=== PATIENT | female | born 1980 | race Caucasian/White ===

== ENCOUNTER 2018-05-02 00:52 | Inpatient (IN) | payer MEDICAID ==
[2018-05-02] MEDS ORDERED: Sodium Chloride 0.9% 1,000 ML IV STA ×2 (01:38→04:59)
[2018-05-02] MEDS ORDERED: Sodium Chloride 0.9% 1,000 ML ONE (01:47)
[2018-05-02 01:55] LABS: HCG,QUALITATIVE URINE NEGATIVE (NEGATIVE)
[2018-05-02 01:58] LABS: SQUAMOUS EPITHIAL 1 /hpf (0-5); URINE BACTERIA FEW (<OCC); URINE BILIRUBIN NEGATIVE (NEGATIVE); URINE CLARITY Clear (Clear); URINE COLOR Yellow (YELLOW); URINE GLUCOSE (UA) NORMAL (Normal); URINE LEUKOCYTE ESTERASE NEG Leu/uL (Negative); URINE PROTEIN NEGATIVE (NEGATIVE); URINE UROBILINOGEN NORMAL mg/dL (0.2-1.0)
[2018-05-02 02:01] LABS: URINE BLOOD TRACE (NEGATIVE)
--- NOTE | 2018-05-02 02:33 | C.PDOC ---
History Of Present Illness 37 year old female presents to the ED for evaluation of severe left-sided flank pain which began around 3 hours prior to arrival. Patient also reports episode of vomiting and was found to be febrile in the ED with temperature of 102.7. Patient denies back pain or diarrhea. Time Seen by Provider: 05/02/18 01:32 Chief Complaint (Nursing): Abdominal Pain History Per: Patient History/Exam Limitations: no limitations Onset/Duration Of Symptoms: Hrs (3) Current Symptoms Are (Timing): Still Present Severity: Severe Radiation Of Pain To:: Flank (right) Quality Of Discomfort: "Pain" Associated Symptoms: Fever, Vomiting. denies: Diarrhea, Back Pain Recent travel outside of the [place]: No Additional History Per: Patient Abnormal Vaginal Bleeding: No Past Medical History Reviewed: Historical Data, Nursing Documentation, Vital Signs Vital Signs: Last Vital Signs Temp 99.1 F 05/02/18 05:31 Pulse 80 05/02/18 05:31 Resp 20 05/02/18 05:31 BP 132/82 05/02/18 05:31 Pulse Ox 99 05/02/18 05:31 - Medical History PMH: No Chronic Diseases Surgical History: No Surg Hx Family History: States: Unknown Family Hx - Social History Hx Alcohol Use: No Hx Substance Use: No - Immunization History Hx Tetanus Toxoid Vaccination: No Hx Influenza Vaccination: No Hx Pneumococcal Vaccination: No Review Of Systems Constitutional: Positive for: Fever Gastrointestinal: Positive for: Vomiting, Abdominal Pain. Negative for: Diarrhea Musculoskeletal: Positive for: Other (left-sided flank pain ). Negative for: Back Pain Physical Exam - Physical Exam Appears: Non-toxic, No Acute Distress Skin: Normal Color, Warm, Dry Head: Atraumatic, Normacephalic Eye(s): bilateral: Normal Inspection Oral Mucosa: Moist Neck: Supple Chest: Symmetrical, No Deformity, No Tenderness Cardiovascular: Rhythm Regular, No Murmur Respiratory: Normal Breath Sounds, No Rales, No Rhonchi, No Wheezing Gastrointestinal/Abdominal: Soft, No Tenderness, No Guarding, No Rebound Back: Other (left-sided flank tenderness ) Extremity: Normal ROM, Capillary Refill (less than 2 seconds ) Neurological/Psych: Oriented x3, Normal Speech, Normal Cognition ED Course And Treatment - Laboratory Results Result Diagrams: 05/02/18 02:41 05/02/18 02:41 O2 Sat by Pulse Oximetry: 95 (on RA) Pulse Ox Interpretation: Normal - CT Scan/US CT A/P Other Rad Studies (CT/US): Read By Radiologist, Radiology Report Reviewed CT/US Interpretation: EXAM: CT Abdomen and Pelvis With Intravenous Contrast. CLINICAL HISTORY: 37 years old, female; Pain; Abdominal pain; Additional info: Left abd pain, fever. TECHNIQUE: Axial computed tomography images of the abdomen and pelvis with intravenous contrast. All CT. scans at this facility use at least one of these dose optimization techniques: automated exposure. control; mA and/or kV adjustment per patient size (includes targeted exams where dose is matched to. clinical indication); or iterative reconstruction. Coronal and sagittal reformatted images were created and reviewed. COMPARISON: No relevant prior studies available. FINDINGS: Lung bases: Unremarkable. No mass. No consolidation. ABDOMEN: Liver: Unremarkable. No mass. Gallbladder and bile ducts: Unremarkable. No calcified stones. No ductal dilation. Pancreas : Unremarkable. No mass. No ductal dilation. Spleen: Unremarkable. No splenomegaly. Adrenals: Unremarkable. No mass. Kidneys and ureters: There is mild left hydronephrosis and hydroureter secondary to 3 mm. stone in the left uterovesical junction. There is moderate inflammatory left perinephric stranding. Delayed left nephrogram compared to the right.There are bilateral renal collecting system. calcifications. Stomach and bowel: Unremarkable. No obstruction. No mucosal thickening. PELVIS: Appendix: No findings to suggest acute appendicitis. Bladder: Unremarkable. No mass. Reproductive: Unremarkable as visualized. ABDOMEN and PELVIS: Intraperitoneal space: Unremarkable. No free air. No significant fluid collection. Bones/joints: No acute fracture. No dislocation. Soft tissues: Unremarkable. Vasculature: Unremarkable. No abdominal aortic aneurysm. Lymph nodes: Unremarkable. No enlarged lymph nodes. IMPRESSION: Mild left hydronephrosis and hydroureter secondary to 3 mm stone in the left uterovesical junction. Progress Note: Bloodwork, urinalysis, CT A/P ordered and reviewed. Morphine IVP , Protonix IVP, Tylenol IVP, Zofran IVP and IV fluids given. Case was d/w Hospitalist who accepted pt [place] for [place]. - Physician Consult Information Physician Contacted: Nakul Noe Outcome Of Conversation: [facility], IV hydration, IV antibiotics Disposition - Disposition Disposition: HOSPITALIZED Disposition Time: 05:11 Condition: FAIR Forms: [facility] (Hungarian) - Clinical Impression Clinical Impression: Renal colic on left side, Fever - PA / HAND SEWER / Resident Statement MD/DO has reviewed & agrees with the documentation as recorded. - Scribe Statement The provider has reviewed the documentation as recorded by the Scribe (Livier Jovel) All medical record entries made by the Scribe were at my direction and personally dictated by me. I have reviewed the chart and agree that the record accurately reflects my personal performance of the history, physical exam, medical decision making, and the department course for this patient. I have also personally directed, reviewed, and agree with the discharge instructions and disposition. Decision To Admit - Pt Status Changed To: Hospital Disposition Of: Observation - . Bed Request Type: Regular Admitting Physician: All Luke Patient Diagnosis: Renal colic on left side, Fever
[2018-05-02 02:54] LABS: BASO % 0.2 % (0.0-2.0); EOS % 0.3 % (0.0-4.0); HEMOGLOBIN 12.2 g/dL (11.0-16.0); LYMPH # 0.3 K/uL (1.0-4.3); MEAN CELL VOLUME 83.5 fL (81.0-99.0); MEAN CORPUSCULAR HEMOGLOBIN 27.6 pg (27.0-31.0); MEAN CORPUSCULAR HGB CONC 33.1 g/dL (33.0-37.0); MEAN PLATELET VOLUME 8.7 fL (7.2-11.7); MONO % 0.7 % (0.0-10.0); NEUT # 2.1 K/uL (1.8-7.0); NEUT % 85.8 % (50.0-75.0); NRBC % 0.4 % (0.0-2.0); RBC 4.43 Mil/uL (3.80-5.20); RED CELL DISTRIBUTION WIDTH 13.7 % (11.5-14.5); WHITE BLOOD COUNT 2.5 K/uL (4.8-10.8)
[2018-05-02 02:56] LABS: INR 1.3
[2018-05-02] MEDS ORDERED: Morphine 4 MG/ML VIAL ONE (02:57)
[2018-05-02 03:01] LABS: ALB/GLOB RATIO 1.9 (1.0-2.1); ALBUMIN 3.9 g/dL (3.5-5.0); ALT/SGPT 29 U/L (9-52); AST/SGOT 23 U/L (14-36); BLOOD UREA NITROGEN 15 mg/dL (7-17); CALCIUM 9.1 mg/dl (8.6-10.4); GFR NON-AFRICAN AMERICAN > 60; LIPASE 37 U/L (23-300)
[2018-05-02] MEDS ORDERED: Potassium Chloride 20 mEq/15 ml LIQ UD PO STA (03:05)
[2018-05-02] MEDS ORDERED: Potassium Chloride 20 mEq/15 ml LIQ UD ONE (05:05)
[2018-05-02] MEDS ORDERED: Sodium Chloride 0.9% 1,000 ML IV ONE (06:23)
--- NOTE | 2018-05-02 06:24 | CP.PCM.PN ---
Subjective - Date & Time of Evaluation Date of Evaluation: 05/02/18 Time of Evaluation: 06:19 - Subjective Subjective: Assessment * Obstructing left distal ureteric calculus, with hydronephrosis, perinephric stranding, fever, * Fever sepsis. Plan * Broad spectrum abx, meropenium 1g q8h * IVF 1lit bolus then 150/hr * Midodrine 10mg single dose * Pain control * Prn zofran, ppi * Urology to stent/remove distal calculus, vs urostomy, if not passed soon * Strain urine. Objective - Vital Signs/Intake and Output Vital Signs (last 24 hours): Temp Pulse Resp BP Pulse Ox 99.1 F 80 20 132/82 95 05/02/18 05:31 05/02/18 05:31 05/02/18 05:31 05/02/18 05:31 05/02/18 06:12 - Medications Medications: Current Medications Acetaminophen (Tylenol 325mg Tab) 650 mg PO Q6 PRN PRN Reason: Fever >100.4 F - Labs Labs: 05/02/18 02:41 05/02/18 02:41 PT 14.0 SECONDS (9.7-12.2) H 05/02/18 02:41 INR 1.3 05/02/18 02:41 APTT 37 SECONDS (21-34) H 05/02/18 02:41
--- NOTE | 2018-05-02 06:52 | CP.PCM.HP ---
<Sherry Rodriguez - Last Filed: 05/02/18 07:05> History of Present Illness - History of Present Illness History of Present Illness: HPI: Patient is a 37 year old female with no past medical history who presents with complaints of left sided flank pain that started at 8pm Th night. The patient describes the pain as severe, sharp, and constant. She also complaints of increased urinary frequency, foul odor, and painful urination. She denies hematuria. She has had kidney stones approximately 1.5 years ago in [place] which was given IV medications. In the ED, patient had a fever of 102.7. She currently complains of fever, chills, weakness, headache, dizziness, nausea , vomiting, increased frequency, pain with urination, and back/flank pain. PMHx: denies SurgHx: denies FamHx: denies SocHx: denies tobacco/alcohol/drug use Allergies: NKDA Medications: denies Present on Admission - Present on Admission Any Indicators Present on Admission: No Review of Systems - Constitutional Constitutional: Chills, Fever, Headache, Lethargy, Malaise, Weakness - EENT Eyes: absent: Change in Vision, Other Visual Disturbances Ears: Dizziness - Cardiovascular Cardiovascular: absent: Chest Pain, Dyspnea, Leg Edema, Palpitations, Rapid Heart Rate - Respiratory Respiratory: absent: Cough, Dyspnea, Hemoptysis - Gastrointestinal Gastrointestinal: Constipation, Nausea, Vomiting. absent: Abdominal Pain, Diarrhea, Hematemesis, Hematochezia, Melena - Genitourinary Genitourinary: Change in Urinary Stream, Dysuria, Pyuria, Urinary Frequency. absent: Hematuria - Musculoskeletal Musculoskeletal: Back Pain (Left back and flank pain) - Neurological Neurological: Dizziness, Headaches, Weakness - Endocrine Endocrine: Fatigue. absent: Palpitations Past Patient History - Infectious Disease Hx of Infectious Diseases: None - Past Social History Smoking Status: Never Smoked - PSYCHIATRIC Hx Substance Use: No - SURGICAL HISTORY Hx Surgeries: No - ANESTHESIA Hx Anesthesia: No Meds Allergies/Adverse Reactions: Allergies Allergy/AdvReac Type Severity Reaction Status Date / Time No Known Allergies Allergy Verified 05/02/18 01:15 Physical Exam - Constitutional Appears: Toxic - Head Exam Head Exam: ATRAUMATIC, NORMAL INSPECTION - Eye Exam Eye Exam: EOMI, Normal appearance - ENT Exam ENT Exam: Mucous Membranes Dry - Respiratory Exam Respiratory Exam: Clear to Auscultation Bilateral, NORMAL BREATHING PATTERN. absent: Rales, Rhonchi, Wheezes, Respiratory Distress - Cardiovascular Exam Cardiovascular Exam: REGULAR RHYTHM, +S1, +S2 - GI/Abdominal Exam GI & Abdominal Exam: Normal Bowel Sounds, Soft, Tenderness (suprapubic b/l; LLQ ; left flank). absent: Distended - Extremities Exam Extremities exam: Positive for: normal inspection, pedal pulses present. Negative for: pedal edema, tenderness - Back Exam Back exam: CVA tenderness (L). absent: CVA tenderness (R) - Neurological Exam Neurological exam: Alert, Oriented x3 - Psychiatric Exam Psychiatric exam: Normal Affect, Normal Mood - Skin Skin Exam: Dry, Intact, Normal Color, Warm Results - Vital Signs Recent Vital Signs: Last Vital Signs Temp 99 F 05/02/18 06:24 Pulse 82 05/02/18 06:24 Resp 20 05/02/18 06:24 BP 130/80 05/02/18 06:24 Pulse Ox 96 05/02/18 06:24 - Labs Result Diagrams: 05/02/18 02:41 05/02/18 02:41 Labs: Laboratory Results - last 24 hr 05/02/18 05/02/18 05/02/18 01:40 02:41 02:41 WBC 2.5 L RBC 4.43 Hgb 12.2 Hct 37.0 MCV 83.5 MCH 27.6 MCHC 33.1 RDW 13.7 Plt Count 171 MPV 8.7 Neut % (Auto) 85.8 H Lymph % (Auto) 13.0 L Benzie % (Auto) 0.7 Eos % (Auto) 0.3 Baso % (Auto) 0.2 Neut # (Auto) 2.1 Lymph # (Auto) 0.3 L Benzie # (Auto) 0.0 Eos # (Auto) 0.0 Baso # (Auto) 0.0 PT 14.0 H INR 1.3 APTT 37 H Sodium Potassium Chloride Carbon Dioxide Anion Gap BUN Creatinine Est GFR ( Amer) Est GFR (Non-Af Amer) Random Glucose Calcium Total Bilirubin AST ALT Alkaline Phosphatase Total Protein Albumin Globulin Albumin/Globulin Ratio Lipase Urine Color Yellow Urine Clarity Clear Urine pH 5.0 Ur Specific Brock 1.009 Urine Protein Negative Urine Glucose (UA) Normal Urine Ketones Negative Urine Blood Trace H Urine Nitrate Negative Urine Bilirubin Negative Urine Urobilinogen Normal Ur Leukocyte Esterase Neg Urine WBC (Auto) 2 Urine RBC (Auto) 1 Ur Squamous Epith Cells 1 Urine Bacteria Few H Urine HCG, Qual Negative 05/02/18 02:41 WBC RBC Hgb Hct MCV MCH MCHC RDW Plt Count MPV Neut % (Auto) Lymph % (Auto) Benzie % (Auto) Eos % (Auto) Baso % (Auto) Neut # (Auto) Lymph # (Auto) Benzie # (Auto) Eos # (Auto) Baso # (Auto) PT INR APTT Sodium 139 Potassium 3.3 L Chloride 105 Carbon Dioxide 22 Anion Gap 15 BUN 15 Creatinine 0.9 Est GFR ( Amer) > 60 Est GFR (Non-Af Amer) > 60 Random Glucose 109 H Calcium 9.1 Total Bilirubin 0.5 AST 23 ALT 29 Alkaline Phosphatase 57 Total Protein 6.1 L Albumin 3.9 Globulin 2.1 L Albumin/Globulin Ratio 1.9 Lipase 37 Urine Color Urine Clarity Urine pH Ur Specific Brock Urine Protein Urine Glucose (UA) Urine Ketones Urine Blood Urine Nitrate Urine Bilirubin Urine Urobilinogen Ur Leukocyte Esterase Urine WBC (Auto) Urine RBC (Auto) Ur Squamous Epith Cells Urine Bacteria Urine HCG, Qual Assessment & Plan - Assessment and Plan (Free Text) Plan: Obstructing left distal ureteric calculus, with hydronephrosis - Abdomen/Pelvis CT: mild left hydronephrosis and hydroureter secondary to 3mm stone in left uteroversical junction - In the ED, morphine, IV fluids, zofran, protonix, and tylenol were given - Strain urine for calculus - NPO - Urology consulted, Dr. Noe; help appreciated - Medications: - Merrem 1g IV Q8h - Morphine 2mg IV Q3h - NS@ 200mls/hr (after 1L NS bolus) - Zofran 4mg IV Q6h prn Sepsis - Febrile, tachycardiac at admission; source- ureteric calculus - Blood cx: f/u - Urine cx: f/u - Procalcitonin: f/u - Lactate: f/u - Medications: - Merrem 1g IV Q8h - Morphine 2mg IV Q3h - Zofran 4mg IV Q6h - Tylenol 650mg PO PRN - NS@ 200mls/hr (after 1L NS bolus) - Midodrine 10mg PO given once Prophylaxis - DVT: SCDs, Heparin 5000u SC Q12 - GI: not indicated - NPO <All Luke P - Last Filed: 05/02/18 08:03> Results - Vital Signs Recent Vital Signs: Last Vital Signs Temp 99 F 05/02/18 06:24 Pulse 82 05/02/18 06:24 Resp 20 05/02/18 06:24 BP 130/80 05/02/18 06:24 Pulse Ox 96 05/02/18 06:24 - Labs Result Diagrams: 05/02/18 02:41 05/02/18 02:41 Labs: Laboratory Results - last 24 hr 05/02/18 05/02/18 05/02/18 01:40 02:41 02:41 WBC 2.5 L RBC 4.43 Hgb 12.2 Hct 37.0 MCV 83.5 MCH 27.6 MCHC 33.1 RDW 13.7 Plt Count 171 MPV 8.7 Neut % (Auto) 85.8 H Lymph % (Auto) 13.0 L Benzie % (Auto) 0.7 Eos % (Auto) 0.3 Baso % (Auto) 0.2 Neut # (Auto) 2.1 Lymph # (Auto) 0.3 L Benzie # (Auto) 0.0 Eos # (Auto) 0.0 Baso # (Auto) 0.0 PT 14.0 H INR 1.3 APTT 37 H Sodium Potassium Chloride Carbon Dioxide Anion Gap BUN Creatinine Est GFR ( Amer) Est GFR (Non-Af Amer) Random Glucose Calcium Total Bilirubin AST ALT Alkaline Phosphatase Total Protein Albumin Globulin Albumin/Globulin Ratio Lipase Urine Color Yellow Urine Clarity Clear Urine pH 5.0 Ur Specific Brock 1.009 Urine Protein Negative Urine Glucose (UA) Normal Urine Ketones Negative Urine Blood Trace H Urine Nitrate Negative Urine Bilirubin Negative Urine Urobilinogen Normal Ur Leukocyte Esterase Neg Urine WBC (Auto) 2 Urine RBC (Auto) 1 Ur Squamous Epith Cells 1 Urine Bacteria Few H Urine HCG, Qual Negative 05/02/18 02:41 WBC RBC Hgb Hct MCV MCH MCHC RDW Plt Count MPV Neut % (Auto) Lymph % (Auto) Benzie % (Auto) Eos % (Auto) Baso % (Auto) Neut # (Auto) Lymph # (Auto) Benzie # (Auto) Eos # (Auto) Baso # (Auto) PT INR APTT Sodium 139 Potassium 3.3 L Chloride 105 Carbon Dioxide 22 Anion Gap 15 BUN 15 Creatinine 0.9 Est GFR ( Amer) > 60 Est GFR (Non-Af Amer) > 60 Random Glucose 109 H Calcium 9.1 Total Bilirubin 0.5 AST 23 ALT 29 Alkaline Phosphatase 57 Total Protein 6.1 L Albumin 3.9 Globulin 2.1 L Albumin/Globulin Ratio 1.9 Lipase 37 Urine Color Urine Clarity Urine pH Ur Specific Brock Urine Protein Urine Glucose (UA) Urine Ketones Urine Blood Urine Nitrate Urine Bilirubin Urine Urobilinogen Ur Leukocyte Esterase Urine WBC (Auto) Urine RBC (Auto) Ur Squamous Epith Cells Urine Bacteria Urine HCG, Qual Attending/Attestation - Attestation I have personally seen and examined this patient.: Yes I have fully participated in the care of the patient.: Yes I have reviewed all pertinent clinical information: Yes Notes (Text): See note on the same day
[2018-05-02] MEDS: Meropenem 1 GM in Sodium Chloride 0.9% 100 ML IVPB SCH ×3 (07:24→22:18)
[2018-05-02] MEDS: Sodium Chloride 0.9% 1,000 ML IV SCH ×3 (07:26→18:50)
--- NOTE | 2018-05-02 07:51 | CP.PCM.PN ---
<Neena Ma L - Last Filed: 05/02/18 17:48> Subjective - Date & Time of Evaluation Date of Evaluation: 05/02/18 Time of Evaluation: 07:50 - Subjective Subjective: Resident Progress Note for Hospitalist Service Patient examined at bedside. No acute events overnight. Patient states she is still experiencing pain throughout her entire body, worst in her lower left quadrant. She is still having headache, fever, chills. She does state that she feels improved since being admitted to the hospital. Denies chest pain, shortness of breath, changes in bowel movements, dysuria. Objective - Vital Signs/Intake and Output Vital Signs (last 24 hours): Temp Pulse Resp BP Pulse Ox 99 F 82 20 130/80 96 05/02/18 06:24 05/02/18 06:24 05/02/18 06:24 05/02/18 06:24 05/02/18 06:24 - Medications Medications: Current Medications Acetaminophen (Tylenol 325mg Tab) 650 mg PO Q6 PRN PRN Reason: Fever >100.4 F Heparin Sodium (Porcine) (Heparin) 5,000 units SC Q12 [facility] Meropenem 1 gm/ Sodium (Chloride) 100 mls @ 100 mls/hr IVPB Q8H [facility] PRN Reason: Protocol Last Admin: 05/02/18 07:24 Dose: 100 mls/hr Sodium Chloride (Sodium Chloride 0.9%) 1,000 mls @ 200 mls/hr IV .Q5H [facility] Last Admin: 05/02/18 07:26 Dose: 200 mls/hr Morphine Sulfate (Morphine) 2 mg IVP Q3H PRN PRN Reason: Pain, severe (8-10) Ondansetron HCl (Zofran Inj) 4 mg IVP Q6 PRN PRN Reason: Nausea/Vomiting - Labs Labs: 05/02/18 02:41 05/02/18 02:41 PT 14.0 SECONDS (9.7-12.2) H 05/02/18 02:41 INR 1.3 05/02/18 02:41 APTT 37 SECONDS (21-34) H 05/02/18 02:41 - Constitutional Appears: No Acute Distress - Head Exam Head Exam: ATRAUMATIC, NORMOCEPHALIC - Eye Exam Eye Exam: EOMI, Normal appearance - ENT Exam ENT Exam: Mucous Membranes Moist, Normal Exam - Neck Exam Neck Exam: Normal Inspection - Respiratory Exam Respiratory Exam: Clear to Ausculation Bilateral, NORMAL BREATHING PATTERN - Cardiovascular Exam Cardiovascular Exam: REGULAR RHYTHM, +S1, +S2 - GI/Abdominal Exam GI & Abdominal Exam: Soft, Tenderness (lower left quadrant), Hypoactive Bowel Sounds - Extremities Exam Extremities Exam: Normal Capillary Refill, Normal Inspection - Back Exam Back Exam: CVA tenderness (L), NORMAL INSPECTION. absent: CVA tenderness (R) - Neurological Exam Neurological Exam: Alert, Awake, Oriented x3 - Psychiatric Exam Psychiatric exam: Anxious - Skin Skin Exam: Dry, Intact, Normal Color Assessment and Plan - Assessment and Plan (Free Text) Plan: Sepsis - Febrile, tachycardic at admission - Likely secondary to obstructing left distal ureteric calculus with hydronephrosis - Abdomen/Pelvis CT: mild left hydronephrosis and hydroureter secondary to 3mm stone in left uteroversical junction - Renal ultrasound shows mild left perinephric fluid. Mild left hydronephrosis. Possible forniceal rupture due to more distal obstruction of the collecting system. 5 mm nonobstructing calculus noted in both the right and left kidney. - s/p cystoscopy with stent insertion - Procalcitonin 80.21 - Merrem 1g IV Q8h - Tylenol 650mg PO Q6H [facility] - Tamsulosin 0.4 mg PO daily - NS@ 200mls/hr (after 1L NS bolus) - Zofran 4mg IV Q6h prn - Toradol 15 mg IVP Q6 PRN for moderate pain, Toradol 30 mg IVP Q6 PRN for severe pain - Strain urine for calculus - Urology Dr. Noe consulted. Appreciate recs. - Followup blood cx - Followup urine cx - Followup lactic acid Soft tissue density in left breast - Incidental finding on abd/pelvis CT - 1.7 cm density - Outpatient followup with mammogram Hypokalemia - Continue to monitor and replete Prophylaxis - DVT: SCDs, Heparin 5000u SC Q12 - GI: Protonix 40 mg IVP daily - Lactobacillus Acidophilus 1 cap PO BID Neena Ma PGY-1 <Joshua Jovel - Last Filed: 05/04/18 22:41> Objective - Vital Signs/Intake and Output Vital Signs (last 24 hours): Temp Pulse Resp BP Pulse Ox 98.4 F 64 20 130/86 99 05/04/18 15:11 05/04/18 15:11 05/04/18 15:11 05/04/18 15:11 05/04/18 15:11 Intake and Output: 05/04/18 05/05/18 18:59 06:59 Intake Total 1200 Balance 1200 - Medications Medications: Current Medications Acetaminophen (Tylenol 325mg Tab) 650 mg PO Q6 PRN PRN Reason: Fever >100.4 F Last Admin: 05/02/18 12:37 Dose: 650 mg Acetaminophen (Tylenol 325mg Tab) 650 mg PO Q6 [facility] Stop: 05/05/18 18:00 Last Admin: 05/04/18 17:28 Dose: 650 mg Heparin Sodium (Porcine) (Heparin) 5,000 units SC Q12 [facility] Last Admin: 05/04/18 22:10 Dose: 5,000 units Meropenem 1 gm/ Sodium (Chloride) 100 mls @ 100 mls/hr IVPB Q8H [facility] PRN Reason: Protocol Last Admin: 05/04/18 22:09 Dose: 100 mls/hr Sodium Chloride (Sodium Chloride 0.9%) 1,000 mls @ 200 mls/hr IV .Q5H [facility] Last Admin: 05/04/18 20:03 Dose: Not Given Ketorolac Tromethamine (Toradol) 30 mg IVP Q6 PRN PRN Reason: Pain, severe (8-10) Last Admin: 05/02/18 20:00 Dose: 30 mg Ketorolac Tromethamine (Toradol) 15 mg IVP Q6 PRN PRN Reason: Pain, moderate (4-7) Last Admin: 05/04/18 01:04 Dose: 15 mg Lactobacillus Acidophilus (Bacid Acidophilus) 1 cap PO BID [facility] Last Admin: 05/04/18 17:29 Dose: 1 cap Ondansetron HCl (Zofran Inj) 4 mg IVP Q6 PRN PRN Reason: Nausea/Vomiting Pantoprazole Sodium (Protonix Inj) 40 mg IVP DAILY [facility] Last Admin: 05/04/18 10:06 Dose: 40 mg Pneumococcal Polyvalent Vaccine (Pneumovax 23 Vaccine) 0.5 ml IM .ONCE ONE Stop: 05/05/18 10:01 Tamsulosin HCl (Flomax) 0.4 mg PO DAILY [facility] Last Admin: 05/04/18 10:07 Dose: 0.4 mg - Labs Labs: 05/04/18 08:42 05/04/18 08:42 PT 14.0 SECONDS (9.7-12.2) H 05/02/18 02:41 INR 1.3 05/02/18 02:41 APTT 37 SECONDS (21-34) H 05/02/18 02:41 Attending/Attestation - Attestation I have personally seen and examined this patient.: Yes I have fully participated in the care of the patient.: Yes I have reviewed all pertinent clinical information, including history, physical exam and plan: Yes Notes (Text): 05/04/18 22:40 This is a late entry Care of this patient was gone over in detail with resident Dr. Francesca Jovel D.O.
--- NOTE | 2018-05-02 08:18 | CT ---
Date of service: 05/02/2018 PROCEDURE: CT Abdomen and Pelvis with intravenous contrast HISTORY: left sided abdominal pain, fever COMPARISON: None. TECHNIQUE: Multiple contiguous axial images were performed through the abdomen and pelvis with the use of intravenous contrast. Subsequently, sagittal and coronal reformatted images were obtained. Radiation dose: Total exam DLP = 904 mGy-cm. This CT exam was performed using one or more of the following dose reduction techniques: Automated exposure control, adjustment of the mA and/or kV according to patient size, and/or use of iterative reconstruction technique. FINDINGS: LOWER THORAX: Unremarkable. LIVER: Mild intrahepatic biliary ductal dilatation. GALLBLADDER AND BILE DUCTS: Unremarkable. PANCREAS: Unremarkable. No gross lesion or ductal dilatation. SPLEEN: Unremarkable. Splenule. ADRENALS: Unremarkable. No mass. KIDNEYS AND URETERS: Mild left hydroureteronephrosis secondary to an obstructing 3 millimeter calculus in the left ureterovesicular junction. Moderate inflammatory left perinephric fat stranding. Delayed left-sided nephrogram in comparison to the right. Bilateral renal collecting system calcifications. For example, a left upper pole 6 millimeter calculus is noted. VASCULATURE: Unremarkable. No aortic aneurysm. BOWEL: Unremarkable. No obstruction. No gross mural thickening. APPENDIX: No findings to suggest acute appendicitis. PERITONEUM: Unremarkable. No free fluid. No free air. LYMPH NODES: Unremarkable. No enlarged lymph nodes. BLADDER: Unremarkable. REPRODUCTIVE: Intrauterine device in place. BONES: No acute fracture. OTHER FINDINGS: None. IMPRESSION: Mild left hydroureteronephrosis secondary to an obstructing 3 millimeter calculus in the left ureterovesicular junction. Moderate inflammatory left perinephric fat stranding. Delayed left-sided nephrogram in comparison to the right. Bilateral renal collecting system calcifications/calculi. Incidentally noted is a 1.7 centimeter rounded soft tissue density in the left breast on series 3, image 14. Correlation with mammogram would be helpful for further evaluation if clinically indicated. Additional findings as above. These findings were preliminarily reported at 4:31 a.m. on 05/02/[address] Lauren Pavon from [employer].
--- NOTE | 2018-05-02 11:35 | US ---
Date of service: 05/02/2018 PROCEDURE: Ultrasound of the Kidneys HISTORY: Left renal calculi COMPARISON: None available. TECHNIQUE: Sonogram of the kidneys. FINDINGS: RIGHT KIDNEY: Measures: 12.7 cm. Normal in size, contour and echogenicity. 5 mm calculus mid right kidney, nonobstructing. No mass. No hydronephrosis. LEFT KIDNEY: Measures: 14.4 cm. Normal in size, contour and echogenicity. Nonobstructing 5 mm calculus mid left kidney. Mild hydronephrosis. Mild perinephric fluid. OTHER FINDINGS: None. IMPRESSION: Mild left perinephric fluid. Mild left hydronephrosis. Possible forniceal rupture due to more distal obstruction of the collecting system. 5 mm nonobstructing calculus noted in both the right and left kidney.
[2018-05-02 11:40] LABS: BLOOD UREA NITROGEN 13 mg/dL (7-17); CALCIUM 7.4 mg/dl (8.6-10.4); GFR NON-AFRICAN AMERICAN > 60
[2018-05-02] MEDS ORDERED: Ciprofloxacin 400mg/200ml D5W 400 MG/200 ML BAG IVPB ONE (16:21)
[2018-05-02] MEDS ORDERED: Midazolam 2 MG/2 ML VIAL ONE ×2 (16:23→16:45)
[2018-05-02] MEDS ORDERED: Propofol 10 mg/ml Inj (20 ML) ONE (16:24)
[2018-05-02] MEDS ORDERED: HYDROmorphone 0.5 mg/0.5 ml ISec IVP PRN (16:45)
--- NOTE | 2018-05-02 17:24 | RAD ---
Date of service: 05/02/2018 PROCEDURE: Intraoperative Fluoroscopy. HISTORY: LEFT URETEROCALCULI FINDINGS: Fluoroscopic assistance was provided for cystogram and stent placement. Please refer to the operative report from MELVIN Alvarenga. Total fluoroscopic time (continuous mode) utilized during the procedure 3.9 (seconds).
[2018-05-02] MEDS: Lactobacillus Acidophilus 500 MU Cap PO SCH (18:45)
--- NOTE | 2018-05-02 18:45 | CP.PCM.DIS ---
Provider - Provider Date of Admission: 05/02/18 05:07 Attending physician: All Luke MD Hospital Course - Lab Results Lab Results: Most Recent Lab Values WBC 2.5 K/uL (4.8-10.8) L 05/02/18 02:41 RBC 4.43 Mil/uL (3.80-5.20) 05/02/18 02:41 Hgb 12.2 g/dL (11.0-16.0) 05/02/18 02:41 Hct 37.0 % (34.0-47.0) 05/02/18 02:41 MCV 83.5 fL (81.0-99.0) 05/02/18 02:41 MCH 27.6 pg (27.0-31.0) 05/02/18 02:41 MCHC 33.1 g/dL (33.0-37.0) 05/02/18 02:41 RDW 13.7 % (11.5-14.5) 05/02/18 02:41 Plt Count 171 K/uL (130-400) 05/02/18 02:41 MPV 8.7 fL (7.2-11.7) 05/02/18 02:41 Neut % (Auto) 85.8 % (50.0-75.0) H 05/02/18 02:41 Lymph % (Auto) 13.0 % (20.0-40.0) L 05/02/18 02:41 Milam % (Auto) 0.7 % (0.0-10.0) 05/02/18 02:41 Eos % (Auto) 0.3 % (0.0-4.0) 05/02/18 02:41 Baso % (Auto) 0.2 % (0.0-2.0) 05/02/18 02:41 Neut # (Auto) 2.1 K/uL (1.8-7.0) 05/02/18 02:41 Lymph # (Auto) 0.3 K/uL (1.0-4.3) L 05/02/18 02:41 Milam # (Auto) 0.0 K/uL (0.0-0.8) 05/02/18 02:41 Eos # (Auto) 0.0 K/uL (0.0-0.7) 05/02/18 02:41 Baso # (Auto) 0.0 K/uL (0.0-0.2) 05/02/18 02:41 PT 14.0 SECONDS (9.7-12.2) H 05/02/18 02:41 INR 1.3 05/02/18 02:41 APTT 37 SECONDS (21-34) H 05/02/18 02:41 Sodium 139 mmol/L (132-148) 05/02/18 11:13 Potassium 3.5 mmol/L (3.6-5.2) L 05/02/18 11:13 Chloride 108 mmol/L (98-107) H 05/02/18 11:13 Carbon Dioxide 20 mmol/L (22-30) L 05/02/18 11:13 Anion Gap 14 (10-20) 05/02/18 11:13 BUN 13 mg/dL (7-17) 05/02/18 11:13 Creatinine 1.0 mg/dL (0.7-1.2) 05/02/18 11:13 Est GFR ( Amer) > 60 05/02/18 11:13 Est GFR (Non-Af Amer) > 60 05/02/18 11:13 Random Glucose 96 mg/dL (65-105) 05/02/18 11:13 Lactic Acid 2.0 mmol/L (0.7-2.1) 05/02/18 11:14 Calcium 7.4 mg/dl (8.6-10.4) L 05/02/18 11:13 Total Bilirubin 0.5 mg/dL (0.2-1.3) 05/02/18 02:41 AST 23 U/L (14-36) 05/02/18 02:41 ALT 29 U/L (9-52) 05/02/18 02:41 Alkaline Phosphatase 57 U/L (38-126) 05/02/18 02:41 Total Protein 6.1 g/dL (6.3-8.3) L 05/02/18 02:41 Albumin 3.9 g/dL (3.5-5.0) 05/02/18 02:41 Globulin 2.1 gm/dL (2.2-3.9) L 05/02/18 02:41 Albumin/Globulin Ratio 1.9 (1.0-2.1) 05/02/18 02:41 Lipase 37 U/L (23-300) 05/02/18 02:41 Procalcitonin 80.21 NG/ML (0.19-0.49) H 05/02/18 11:13 Urine Color Yellow (YELLOW) 05/02/18 01:40 Urine Clarity Clear (Clear) 05/02/18 01:40 Urine pH 5.0 (5.0-8.0) 05/02/18 01:40 Ur Specific Rogers 1.009 (1.003-1.030) 05/02/18 01:40 Urine Protein Negative mg/dL (NEGATIVE) 05/02/18 01:40 Urine Glucose (UA) Normal mg/dL (Normal) 05/02/18 01:40 Urine Ketones Negative mg/dL (NEGATIVE) 05/02/18 01:40 Urine Blood Trace (NEGATIVE) H 05/02/18 01:40 Urine Nitrate Negative (NEGATIVE) 05/02/18 01:40 Urine Bilirubin Negative (NEGATIVE) 05/02/18 01:40 Urine Urobilinogen Normal mg/dL (0.2-1.0) 05/02/18 01:40 Ur Leukocyte Esterase Neg Gary/uL (Negative) 05/02/18 01:40 Urine WBC (Auto) 2 /hpf (0-5) 05/02/18 01:40 Urine RBC (Auto) 1 /hpf (0-3) 05/02/18 01:40 Ur Squamous Epith Cells 1 /hpf (0-5) 05/02/18 01:40 Urine Bacteria Few (<OCC) H 05/02/18 01:40 Urine HCG, Qual Negative (NEGATIVE) 05/02/18 01:40 Discharge Exam - Head Exam Head Exam: ATRAUMATIC, NORMOCEPHALIC Discharge Plan - Follow Up Plan Condition: FAIR Disposition: HOME/ ROUTINE
[2018-05-03] MEDS: Sodium Chloride 0.9% 1,000 ML IV SCH ×4 (03:12→14:20)
[2018-05-03] MEDS: Meropenem 1 GM in Sodium Chloride 0.9% 100 ML IVPB SCH ×3 (05:45→22:00)
[2018-05-03 06:30] LABS: BASO % 0.1 % (0.0-2.0); EOS # 0.1 K/uL (0.0-0.7); EOS % 0.4 % (0.0-4.0); HEMOGLOBIN 10.8 g/dL (11.0-16.0); LYMPH # 1.2 K/uL (1.0-4.3); LYMPH % 8.1 % (20.0-40.0); MEAN CELL VOLUME 84.3 fL (81.0-99.0); MEAN CORPUSCULAR HEMOGLOBIN 27.8 pg (27.0-31.0); MEAN PLATELET VOLUME 9.7 fL (7.2-11.7); MONO # 0.5 K/uL (0.0-0.8); MONO % 3.5 % (0.0-10.0); NEUT # 13.1 K/uL (1.8-7.0); NEUT % 87.9 % (50.0-75.0); PLATELET COUNT 126 K/uL (130-400); RBC 3.89 Mil/uL (3.80-5.20); WHITE BLOOD COUNT 14.9 K/uL (4.8-10.8)
[2018-05-03 06:47] LABS: ALB/GLOB RATIO 1.5 (1.0-2.1); ALBUMIN 2.9 g/dL (3.5-5.0); ALT/SGPT 29 U/L (9-52); AST/SGOT 13 U/L (14-36); BLOOD UREA NITROGEN 19 mg/dL (7-17); CALCIUM 7.2 mg/dl (8.6-10.4); GFR NON-AFRICAN AMERICAN > 60
[2018-05-03 08:40] LABS: BANDS 18 % (0-2); LYMPHOCYTE 9 % (20-40); MONOCYTE 3 % (0-10); NEUTROPHIL 70 % (50-75); TOTAL CELLS COUNTED 100
[2018-05-03 08:41] LABS: PLATELET ESTIMATE SLIGHTLY DECREASED (NORMAL)
[2018-05-03 08:42] LABS: ANISOCYTOSIS SLIGHT
[2018-05-03 08:43] LABS: HYPOCHROMIC SLIGHT; POLYCHROMIC SLIGHT; TOXIC GRANULATION PRESENT
[2018-05-03] MEDS: Lactobacillus Acidophilus 500 MU Cap PO SCH ×2 (10:10→17:25)
[2018-05-03] MEDS ORDERED: Potassium Chloride 20 mEq ER Tab PO ONE (13:00)
--- NOTE | 2018-05-03 14:22 | CP.PCM.PN ---
<Cindy Coello - Last Filed: 05/03/18 21:29> Subjective - Date & Time of Evaluation Date of Evaluation: 05/03/18 Time of Evaluation: 17:00 - Subjective Subjective: PGY 3 Med Note- Dr. Josette Jovel's service Patient seen and examined with family present bedside. Patient reported headache at the time as well as subjective warmth. Patient admitted to flank pain as well. Patient denies nausea, vomiting, chest pain, palpitations at this time. Translation obtained with the use of [employer] chief writer Splash #[id number]. Objective - Vital Signs/Intake and Output Vital Signs (last 24 hours): Temp Pulse Resp BP Pulse Ox 98.4 F 77 20 105/68 96 05/03/18 11:33 05/03/18 07:00 05/03/18 07:00 05/03/18 07:00 05/03/18 07:00 Intake and Output: 05/03/18 05/03/18 06:59 18:59 Intake Total 1300 Balance 1300 - Medications Medications: Current Medications Acetaminophen (Tylenol 325mg Tab) 650 mg PO Q6 PRN PRN Reason: Fever >100.4 F Last Admin: 05/02/18 12:37 Dose: 650 mg Acetaminophen (Tylenol 325mg Tab) 650 mg PO Q6 [facility] Stop: 05/03/18 18:00 Last Admin: 05/03/18 11:33 Dose: 650 mg Heparin Sodium (Porcine) (Heparin) 5,000 units SC Q12 [facility] Last Admin: 05/03/18 10:09 Dose: 5,000 units Meropenem 1 gm/ Sodium (Chloride) 100 mls @ 100 mls/hr IVPB Q8H [facility] PRN Reason: Protocol Last Admin: 05/03/18 14:16 Dose: 100 mls/hr Sodium Chloride (Sodium Chloride 0.9%) 1,000 mls @ 200 mls/hr IV .Q5H [facility] Last Admin: 05/03/18 14:20 Dose: Not Given Ketorolac Tromethamine (Toradol) 30 mg IVP Q6 PRN PRN Reason: Pain, severe (8-10) Last Admin: 05/02/18 20:00 Dose: 30 mg Ketorolac Tromethamine (Toradol) 15 mg IVP Q6 PRN PRN Reason: Pain, moderate (4-7) Lactobacillus Acidophilus (Bacid Acidophilus) 1 cap PO BID [facility] Last Admin: 05/03/18 10:10 Dose: 1 cap Ondansetron HCl (Zofran Inj) 4 mg IVP Q6 PRN PRN Reason: Nausea/Vomiting Pantoprazole Sodium (Protonix Inj) 40 mg IVP DAILY [facility] Last Admin: 05/03/18 10:29 Dose: 40 mg Pneumococcal Polyvalent Vaccine (Pneumovax 23 Vaccine) 0.5 ml IM .ONCE ONE Stop: 05/05/18 10:01 Tamsulosin HCl (Flomax) 0.4 mg PO DAILY [facility] Last Admin: 05/03/18 10:10 Dose: 0.4 mg - Labs Labs: 05/03/18 06:18 05/03/18 06:18 PT 14.0 SECONDS (9.7-12.2) H 05/02/18 02:41 INR 1.3 05/02/18 02:41 APTT 37 SECONDS (21-34) H 05/02/18 02:41 - Constitutional Appears: Non-toxic, No Acute Distress - Head Exam Head Exam: ATRAUMATIC, NORMAL INSPECTION - Eye Exam Eye Exam: EOMI, Normal appearance, PERRL Pupil Exam: NORMAL ACCOMODATION - ENT Exam ENT Exam: Mucous Membranes Moist - Neck Exam Neck Exam: Full ROM - Cardiovascular Exam Cardiovascular Exam: +S1, +S2 - Extremities Exam Extremities Exam: Full ROM, Normal Capillary Refill. absent: Pedal Edema - Back Exam Back Exam: CVA tenderness (L), Full ROM - Neurological Exam Neurological Exam: Alert, Awake, Oriented x3 - Psychiatric Exam Psychiatric exam: Normal Affect, Normal Mood - Skin Skin Exam: Normal Color, Warm Assessment and Plan - Assessment and Plan (Free Text) Assessment: Bandemia - Febrile, tachycardic at admission -Leukocytosis as well as bands of 18 noted - Likely secondary to obstructing left distal ureteric calculus with hydronephrosis - Abdomen/Pelvis CT: mild left hydronephrosis and hydroureter secondary to 3mm stone in left ureterovesical junction - Procalcitonin elevated 80.21 - On Merrem 1g IV Q8h - Tylenol 650mg PO Q6H [facility] - Tamsulosin 0.4 mg PO daily - Zofran 4mg IV Q6h prn - Toradol 15 mg IVP Q6 PRN for moderate pain, Toradol 30 mg IVP Q6 PRN for severe pain - U/C and B/C prelim findings positive for Gram negative rods. F/U sensitivities. Will need 10-14 day antibiotic course following sensitivities. Nephrolithiasis - Renal ultrasound shows mild left perinephric fluid. Mild left hydronephrosis. Possible forniceal rupture due to more distal obstruction of the collecting system. 5 mm nonobstructing calculus noted in both the right and left kidney. - s/p cystoscopy with stent insertion - Strain urine for calculus. F/U - Urology Dr. Noe consulted. Appreciate recs. Electrolyte abnormality - Continue to monitor and replete Soft tissue density in left breast - Incidental finding on abd/pelvis CT - 1.7 cm soft tissue density noted - Outpatient followup with mammogram Prophylaxis - DVT: SCDs, Heparin 5000U SC Q12 - GI: Protonix 40 mg IVP daily - Lactobacillus Acidophilus 1 cap PO BID <Joshua Jovel - Last Filed: 05/04/18 22:40> Objective - Vital Signs/Intake and Output Vital Signs (last 24 hours): Temp Pulse Resp BP Pulse Ox 98.4 F 64 20 130/86 99 05/04/18 15:11 05/04/18 15:11 05/04/18 15:11 05/04/18 15:11 05/04/18 15:11 Intake and Output: 05/04/18 05/05/18 18:59 06:59 Intake Total 1200 Balance 1200 - Medications Medications: Current Medications Acetaminophen (Tylenol 325mg Tab) 650 mg PO Q6 PRN PRN Reason: Fever >100.4 F Last Admin: 05/02/18 12:37 Dose: 650 mg Acetaminophen (Tylenol 325mg Tab) 650 mg PO Q6 [facility] Stop: 05/05/18 18:00 Last Admin: 05/04/18 17:28 Dose: 650 mg Heparin Sodium (Porcine) (Heparin) 5,000 units SC Q12 [facility] Last Admin: 05/04/18 22:10 Dose: 5,000 units Meropenem 1 gm/ Sodium (Chloride) 100 mls @ 100 mls/hr IVPB Q8H [facility] PRN Reason: Protocol Last Admin: 05/04/18 22:09 Dose: 100 mls/hr Sodium Chloride (Sodium Chloride 0.9%) 1,000 mls @ 200 mls/hr IV .Q5H [facility] Last Admin: 05/04/18 20:03 Dose: Not Given Ketorolac Tromethamine (Toradol) 30 mg IVP Q6 PRN PRN Reason: Pain, severe (8-10) Last Admin: 05/02/18 20:00 Dose: 30 mg Ketorolac Tromethamine (Toradol) 15 mg IVP Q6 PRN PRN Reason: Pain, moderate (4-7) Last Admin: 05/04/18 01:04 Dose: 15 mg Lactobacillus Acidophilus (Bacid Acidophilus) 1 cap PO BID [facility] Last Admin: 05/04/18 17:29 Dose: 1 cap Ondansetron HCl (Zofran Inj) 4 mg IVP Q6 PRN PRN Reason: Nausea/Vomiting Pantoprazole Sodium (Protonix Inj) 40 mg IVP DAILY [facility] Last Admin: 05/04/18 10:06 Dose: 40 mg Pneumococcal Polyvalent Vaccine (Pneumovax 23 Vaccine) 0.5 ml IM .ONCE ONE Stop: 05/05/18 10:01 Tamsulosin HCl (Flomax) 0.4 mg PO DAILY [facility] Last Admin: 05/04/18 10:07 Dose: 0.4 mg - Labs Labs: 05/04/18 08:42 05/04/18 08:42 PT 14.0 SECONDS (9.7-12.2) H 05/02/18 02:41 INR 1.3 05/02/18 02:41 APTT 37 SECONDS (21-34) H 05/02/18 02:41 Attending/Attestation - Attestation I have personally seen and examined this patient.: Yes I have fully participated in the care of the patient.: Yes I have reviewed all pertinent clinical information, including history, physical exam and plan: Yes Notes (Text): 05/04/18 22:40 This is a late entry Care of this patient was gone over in detail with resident Dr. Oumou Jovel D.O.
[2018-05-04] MEDS: Sodium Chloride 0.9% 1,000 ML IV SCH ×5 (00:48→20:03)
[2018-05-04] MEDS: Meropenem 1 GM in Sodium Chloride 0.9% 100 ML IVPB SCH ×3 (06:26→22:09)
--- NOTE | 2018-05-04 08:44 | CP.PCM.PN ---
<Cindy Coello - Last Filed: 05/04/18 20:26> Subjective - Date & Time of Evaluation Date of Evaluation: 05/04/18 Time of Evaluation: 10:13 - Subjective Subjective: PGY 3 Med Progress Note- Dr. Josette Jovel's service Patient seen and examined in no apparent acute distress. Patient reports headache and suprapubic tenderness. Patient states that she has been ambulating. Patient denies subjective fevers or chills, nausea, vomiting or diarrhea at this time. Objective - Vital Signs/Intake and Output Vital Signs (last 24 hours): Temp Pulse Resp BP Pulse Ox 98.6 F 88 20 116/74 98 05/04/18 00:00 05/04/18 00:00 05/04/18 00:00 05/04/18 00:00 05/04/18 04:05 Intake and Output: 05/04/18 05/04/18 06:59 18:59 Intake Total 3350 Output Total 600 Balance 2750 - Medications Medications: Current Medications Acetaminophen (Tylenol 325mg Tab) 650 mg PO Q6 PRN PRN Reason: Fever >100.4 F Last Admin: 05/02/18 12:37 Dose: 650 mg Heparin Sodium (Porcine) (Heparin) 5,000 units SC Q12 [facility] Last Admin: 05/03/18 21:12 Dose: 5,000 units Meropenem 1 gm/ Sodium (Chloride) 100 mls @ 100 mls/hr IVPB Q8H [facility] PRN Reason: Protocol Last Admin: 05/04/18 06:26 Dose: 100 mls/hr Sodium Chloride (Sodium Chloride 0.9%) 1,000 mls @ 200 mls/hr IV .Q5H [facility] Last Admin: 05/04/18 05:00 Dose: Not Given Ketorolac Tromethamine (Toradol) 30 mg IVP Q6 PRN PRN Reason: Pain, severe (8-10) Last Admin: 05/02/18 20:00 Dose: 30 mg Ketorolac Tromethamine (Toradol) 15 mg IVP Q6 PRN PRN Reason: Pain, moderate (4-7) Last Admin: 05/04/18 01:04 Dose: 15 mg Lactobacillus Acidophilus (Bacid Acidophilus) 1 cap PO BID [facility] Last Admin: 05/03/18 17:25 Dose: 1 cap Ondansetron HCl (Zofran Inj) 4 mg IVP Q6 PRN PRN Reason: Nausea/Vomiting Pantoprazole Sodium (Protonix Inj) 40 mg IVP DAILY [facility] Last Admin: 05/03/18 10:29 Dose: 40 mg Pneumococcal Polyvalent Vaccine (Pneumovax 23 Vaccine) 0.5 ml IM .ONCE ONE Stop: 05/05/18 10:01 Tamsulosin HCl (Flomax) 0.4 mg PO DAILY [facility] Last Admin: 05/03/18 10:10 Dose: 0.4 mg - Labs Labs: 05/03/18 06:18 05/03/18 06:18 PT 14.0 SECONDS (9.7-12.2) H 05/02/18 02:41 INR 1.3 05/02/18 02:41 APTT 37 SECONDS (21-34) H 05/02/18 02:41 - Constitutional Appears: Non-toxic - Head Exam Head Exam: ATRAUMATIC, NORMAL INSPECTION - Eye Exam Eye Exam: EOMI Pupil Exam: NORMAL ACCOMODATION - ENT Exam ENT Exam: Mucous Membranes Moist - Neck Exam Neck Exam: Full ROM - Respiratory Exam Respiratory Exam: NORMAL BREATHING PATTERN. absent: Wheezes - Cardiovascular Exam Cardiovascular Exam: +S1, +S2 - GI/Abdominal Exam GI & Abdominal Exam: Soft, Tenderness (left flank, suprapubic), Normal Bowel Sounds. absent: Rigid - Extremities Exam Extremities Exam: Full ROM. absent: Calf Tenderness, Pedal Edema - Back Exam Back Exam: CVA tenderness (L) - Neurological Exam Neurological Exam: Alert, Awake, Normal Gait, Oriented x3 - Psychiatric Exam Psychiatric exam: Normal Affect, Normal Mood - Skin Skin Exam: Dry, Intact, Warm Assessment and Plan - Assessment and Plan (Free Text) Assessment: ESBL Urinary Tract Infection - Sensitive to Merrem 1g IV Q8h, started 05/02 - Contact precautions - Monitor. Will need to recheck cultures. Bandemia - Febrile, tachycardic at admission - Leukocytosis as well as bands of 18 noted on 05/03 - Likely secondary to obstructing left distal ureteric calculus with hydronephrosis - Abdomen/Pelvis CT: mild left hydronephrosis and hydroureter secondary to 3mm stone in left ureterovesical junction - Procalcitonin elevated 80.21 - On Merrem 1g IV Q8h, started 05/02 - Probiotics Lactobacillus Acidophilus 1 cap PO BID - Tamsulosin 0.4 mg PO daily - Zofran 4mg IV Q6h prn - Toradol 15 mg IVP Q6 PRN for moderate pain, Toradol 30 mg IVP Q6 PRN for severe pain - U/C and B/C prelim findings positive for Gram negative rods. ESBL+ noted. Will need 10-14 day antibiotic course of therapy. Anticipated abx course end May 16. -Order placed for PICC line- F/U Nephrolithiasis - Renal ultrasound shows mild left perinephric fluid. Mild left hydronephrosis. Possible forniceal rupture due to more distal obstruction of the collecting system. 5 mm nonobstructing calculus noted in both the right and left kidney. - s/p cystoscopy with stent insertion - Strain urine for calculus. F/U - Urology Dr. Noe consulted. F/U recommendations Electrolyte abnormality - Continue to monitor and replete Soft tissue density in left breast - Incidental finding on abd/pelvis CT - 1.7 cm soft tissue density noted - Outpatient followup with mammogram Prophylaxis - DVT: SCDs, Heparin 5000U SC Q12 - GI: Protonix 40 mg IVP daily <Joshua Jovel - Last Filed: 05/04/18 22:39> Objective - Vital Signs/Intake and Output Vital Signs (last 24 hours): Temp Pulse Resp BP Pulse Ox 98.4 F 64 20 130/86 99 05/04/18 15:11 05/04/18 15:11 05/04/18 15:11 05/04/18 15:11 05/04/18 15:11 - Medications Medications: Current Medications Acetaminophen (Tylenol 325mg Tab) 650 mg PO Q6 PRN PRN Reason: Fever >100.4 F Last Admin: 05/02/18 12:37 Dose: 650 mg Acetaminophen (Tylenol 325mg Tab) 650 mg PO Q6 [facility] Stop: 05/05/18 18:00 Last Admin: 05/04/18 17:28 Dose: 650 mg Heparin Sodium (Porcine) (Heparin) 5,000 units SC Q12 [facility] Last Admin: 05/04/18 22:10 Dose: 5,000 units Meropenem 1 gm/ Sodium (Chloride) 100 mls @ 100 mls/hr IVPB Q8H [facility] PRN Reason: Protocol Last Admin: 05/04/18 22:09 Dose: 100 mls/hr Sodium Chloride (Sodium Chloride 0.9%) 1,000 mls @ 200 mls/hr IV .Q5H [facility] Last Admin: 05/04/18 20:03 Dose: Not Given Ketorolac Tromethamine (Toradol) 30 mg IVP Q6 PRN PRN Reason: Pain, severe (8-10) Last Admin: 05/02/18 20:00 Dose: 30 mg Ketorolac Tromethamine (Toradol) 15 mg IVP Q6 PRN PRN Reason: Pain, moderate (4-7) Last Admin: 05/04/18 01:04 Dose: 15 mg Lactobacillus Acidophilus (Bacid Acidophilus) 1 cap PO BID [facility] Last Admin: 05/04/18 17:29 Dose: 1 cap Ondansetron HCl (Zofran Inj) 4 mg IVP Q6 PRN PRN Reason: Nausea/Vomiting Pantoprazole Sodium (Protonix Inj) 40 mg IVP DAILY [facility] Last Admin: 05/04/18 10:06 Dose: 40 mg Pneumococcal Polyvalent Vaccine (Pneumovax 23 Vaccine) 0.5 ml IM .ONCE ONE Stop: 05/05/18 10:01 Tamsulosin HCl (Flomax) 0.4 mg PO DAILY [facility] Last Admin: 05/04/18 10:07 Dose: 0.4 mg - Labs Labs: 05/04/18 08:42 05/04/18 08:42 PT 14.0 SECONDS (9.7-12.2) H 05/02/18 02:41 INR 1.3 05/02/18 02:41 APTT 37 SECONDS (21-34) H 05/02/18 02:41 Attending/Attestation - Attestation I have personally seen and examined this patient.: Yes I have fully participated in the care of the patient.: Yes I have reviewed all pertinent clinical information, including history, physical exam and plan: Yes Notes (Text): 05/04/18 22:26 Patient was seen and examined at 1:27 PM 05/04/18 371 B Exam, assessment and plan were gone over with resident Dr. Coello. Also on ROS: Pressure like ache in left flank area when urinating Headache generalized that come and goes Achiness in left arm and left upper back NO other complaints upon FULL ROS Also on Exam: Left CVA tenderness ellicited LUQ abdominal pain with palpation but no guarding/rebound tenderness She is S/P Cystoscopy with stent placement by Dr. Noe Urine Culture 05/02/18 grew ESBL Blood Culture 05/02/18 grew E. coli There are no good PO antibiotics that would work well with the infections noted in the urine and blood and treatment with IV antibiotic is limited to Meropenem. Considering this, I do not feel that consultation with ID is warranted at this time as I believe that no alternate plan of care would be instituted. Therefore patient will need to continue the Meropenem IV for a total of 14 days with tentative last dose on 05/16/18. F/U repeat Blood and Urine Cultures ordered for morning 05/05/18 PICC Line placement ordered for 05/05/18 Tylenol 650 mg PO Q6H scheduled till 6 PM 05/05/18 and then should be made PRN Upon discharge, patient will need to follow up with Urology Dr. Noe to have ureteral stent removed Also upon discharge, patient will need to have Mammogram performed through [facility] for further evaluation of the 1.7 cm rounded soft tissue density in left breast found on CT Abdomen/Plevis. Plan of care and findings were thoroughly explained to patient with the help of Elizabeth Trujillo Interpretor Alicia ID #[id number] Joshua Jovel D.O.
[2018-05-04 08:55] LABS: BASO % 0.1 % (0.0-2.0); EOS % 0.2 % (0.0-4.0); HEMOGLOBIN 10.7 g/dL (11.0-16.0); LYMPH % 13.9 % (20.0-40.0); MEAN CELL VOLUME 83.3 fL (81.0-99.0); MEAN CORPUSCULAR HGB CONC 33.6 g/dL (33.0-37.0); MEAN PLATELET VOLUME 9.9 fL (7.2-11.7); MONO # 0.6 K/uL (0.0-0.8); MONO % 3.9 % (0.0-10.0); NEUT # 11.9 K/uL (1.8-7.0); NEUT % 81.9 % (50.0-75.0); RBC 3.84 Mil/uL (3.80-5.20); RED CELL DISTRIBUTION WIDTH 14.3 % (11.5-14.5); WHITE BLOOD COUNT 14.5 K/uL (4.8-10.8)
[2018-05-04 09:16] LABS: ALB/GLOB RATIO 1.2 (1.0-2.1); ALT/SGPT 27 U/L (9-52); AST/SGOT 15 U/L (14-36); BLOOD UREA NITROGEN 13 mg/dL (7-17); CALCIUM 8.2 mg/dl (8.6-10.4); GFR NON-AFRICAN AMERICAN > 60
[2018-05-04] MEDS ORDERED: Potassium Phosphate 15 MMOLE in Sodium Chloride 0.9% 250 ML IVPB ONE (09:38)
[2018-05-04] MEDS ORDERED: Potassium Chloride 20 mEq ER Tab PO ONE (09:45)
[2018-05-04] MEDS: Lactobacillus Acidophilus 500 MU Cap PO SCH ×2 (10:07→17:29)
[2018-05-05] MEDS: Sodium Chloride 0.9% 1,000 ML IV SCH ×5 (01:25→22:50)
[2018-05-05] MEDS: Meropenem 1 GM in Sodium Chloride 0.9% 100 ML IVPB SCH ×3 (06:28→21:48)
--- NOTE | 2018-05-05 07:00 | CP.PCM.PN ---
<Neena Ma L - Last Filed: 05/05/18 18:54> Subjective - Date & Time of Evaluation Date of Evaluation: 05/05/18 Time of Evaluation: 06:59 - Subjective Subjective: Resident Progress Note for Hospitalist Service Patient examined at bedside. No acute events overnight. States that she is feeling better today, however is still experiencing abdominal pain. Denies fevers, chills, nausea, vomiting, chest pain, shortness of breath, changes in bowel movements, dysuria. Objective - Vital Signs/Intake and Output Vital Signs (last 24 hours): Temp Pulse Resp BP Pulse Ox 98.4 F 64 20 130/86 99 05/04/18 15:11 05/04/18 15:11 05/04/18 15:11 05/04/18 15:11 05/04/18 15:11 Intake and Output: 05/04/18 05/05/18 18:59 06:59 Intake Total 1200 Balance 1200 - Medications Medications: Current Medications Acetaminophen (Tylenol 325mg Tab) 650 mg PO Q6 PRN PRN Reason: Fever >100.4 F Last Admin: 05/02/18 12:37 Dose: 650 mg Acetaminophen (Tylenol 325mg Tab) 650 mg PO Q6 [facility] Stop: 05/05/18 18:00 Last Admin: 05/05/18 06:12 Dose: 650 mg Heparin Sodium (Porcine) (Heparin) 5,000 units SC Q12 [facility] Last Admin: 05/04/18 22:10 Dose: 5,000 units Meropenem 1 gm/ Sodium (Chloride) 100 mls @ 100 mls/hr IVPB Q8H [facility] PRN Reason: Protocol Last Admin: 05/05/18 06:28 Dose: 100 mls/hr Sodium Chloride (Sodium Chloride 0.9%) 1,000 mls @ 200 mls/hr IV .Q5H [facility] Last Admin: 05/05/18 06:00 Dose: Not Given Ketorolac Tromethamine (Toradol) 30 mg IVP Q6 PRN PRN Reason: Pain, severe (8-10) Last Admin: 05/02/18 20:00 Dose: 30 mg Ketorolac Tromethamine (Toradol) 15 mg IVP Q6 PRN PRN Reason: Pain, moderate (4-7) Last Admin: 05/04/18 01:04 Dose: 15 mg Lactobacillus Acidophilus (Bacid Acidophilus) 1 cap PO BID [facility] Last Admin: 05/04/18 17:29 Dose: 1 cap Ondansetron HCl (Zofran Inj) 4 mg IVP Q6 PRN PRN Reason: Nausea/Vomiting Pantoprazole Sodium (Protonix Inj) 40 mg IVP DAILY [facility] Last Admin: 05/04/18 10:06 Dose: 40 mg Pneumococcal Polyvalent Vaccine (Pneumovax 23 Vaccine) 0.5 ml IM .ONCE ONE Stop: 05/05/18 10:01 Tamsulosin HCl (Flomax) 0.4 mg PO DAILY [facility] Last Admin: 05/04/18 10:07 Dose: 0.4 mg - Labs Labs: 05/04/18 08:42 05/04/18 08:42 PT 14.0 SECONDS (9.7-12.2) H 05/02/18 02:41 INR 1.3 05/02/18 02:41 APTT 37 SECONDS (21-34) H 05/02/18 02:41 - Additional Findings Additional findings: - Constitutional Appears: Non-toxic - Head Exam Head Exam: ATRAUMATIC, NORMAL INSPECTION - Eye Exam Eye Exam: EOMI Pupil Exam: NORMAL ACCOMODATION - ENT Exam ENT Exam: Mucous Membranes Moist - Neck Exam Neck Exam: Full ROM - Respiratory Exam Respiratory Exam: NORMAL BREATHING PATTERN. absent: Wheezes - Cardiovascular Exam Cardiovascular Exam: +S1, +S2 - GI/Abdominal Exam GI & Abdominal Exam: Soft, Tenderness (LLQ), Normal Bowel Sounds. absent: Rigid - Extremities Exam Extremities Exam: Full ROM. absent: Calf Tenderness, Pedal Edema - Back Exam Back Exam: CVA tenderness (L) - Neurological Exam Neurological Exam: Alert, Awake, Normal Gait, Oriented x3 - Psychiatric Exam Psychiatric exam: Normal Affect, Normal Mood - Skin Skin Exam: Dry, Intact, Warm Assessment and Plan - Assessment and Plan (Free Text) Plan: ESBL Urinary Tract Infection - Sensitive to Merrem 1g IV Q8h, started 05/02 - Contact precautions - Followup blood cultures, urine cultures Bandemia - Febrile, tachycardic at admission - Leukocytosis as well as bands of 18 noted on 05/03 - Likely secondary to obstructing left distal ureteric calculus with hydronephrosis - Abdomen/Pelvis CT: mild left hydronephrosis and hydroureter secondary to 3mm stone in left ureterovesical junction - Procalcitonin elevated 80.21 - On Merrem 1g IV Q8h, started 05/02 - Probiotics Lactobacillus Acidophilus 1 cap PO BID - Tamsulosin 0.4 mg PO daily - Zofran 4mg IV Q6h prn - Toradol 15 mg IVP Q6 PRN for moderate pain, Toradol 30 mg IVP Q6 PRN for severe pain - U/C and B/C prelim findings positive for Gram negative rods. ESBL+ noted. Will need 10-14 day antibiotic course of therapy. Anticipated abx course end May 16. - Picc line placed today Nephrolithiasis - Renal ultrasound shows mild left perinephric fluid. Mild left hydronephrosis. Possible forniceal rupture due to more distal obstruction of the collecting system. 5 mm nonobstructing calculus noted in both the right and left kidney. - s/p cystoscopy with stent insertion - Strain urine for calculus. F/U - Urology Dr. Noe consulted. F/U recommendations Electrolyte abnormality - Continue to monitor and replete Soft tissue density in left breast - Incidental finding on abd/pelvis CT - 1.7 cm soft tissue density noted - Outpatient followup with mammogram Prophylaxis - DVT: SCDs, Heparin 5000U SC Q12 - GI: Protonix 40 mg IVP daily Neena Ma PGY-1 <Paloma Tovar V - Last Filed: 05/05/18 22:57> Objective - Vital Signs/Intake and Output Vital Signs (last 24 hours): Temp Pulse Resp BP Pulse Ox 98.4 F 51 L 20 141/80 100 05/05/18 16:00 05/05/18 16:00 05/05/18 16:00 05/05/18 16:00 05/05/18 16:00 Intake and Output: 05/05/18 05/06/18 18:59 06:59 Intake Total 1030 Balance 1030 - Medications Medications: Current Medications Acetaminophen (Tylenol 325mg Tab) 650 mg PO Q6 PRN PRN Reason: Fever >100.4 F Last Admin: 05/02/18 12:37 Dose: 650 mg Heparin Sodium (Porcine) (Heparin) 5,000 units SC Q12 [facility] Last Admin: 05/05/18 21:07 Dose: 5,000 units Meropenem 1 gm/ Sodium (Chloride) 100 mls @ 100 mls/hr IVPB Q8H [facility] PRN Reason: Protocol Last Admin: 05/05/18 21:48 Dose: 100 mls/hr Ketorolac Tromethamine (Toradol) 30 mg IVP Q6 PRN PRN Reason: Pain, severe (8-10) Last Admin: 05/02/18 20:00 Dose: 30 mg Ketorolac Tromethamine (Toradol) 15 mg IVP Q6 PRN PRN Reason: Pain, moderate (4-7) Last Admin: 05/04/18 01:04 Dose: 15 mg Lactobacillus Acidophilus (Bacid Acidophilus) 1 cap PO BID [facility] Last Admin: 05/05/18 17:48 Dose: 1 cap Ondansetron HCl (Zofran Inj) 4 mg IVP Q6 PRN PRN Reason: Nausea/Vomiting Pantoprazole Sodium (Protonix Inj) 40 mg IVP DAILY [facility] Last Admin: 05/05/18 14:49 Dose: 40 mg Tamsulosin HCl (Flomax) 0.4 mg PO DAILY [facility] Last Admin: 05/05/18 10:40 Dose: 0.4 mg - Labs Labs: 05/05/18 07:18 05/05/18 07:18 PT 14.0 SECONDS (9.7-12.2) H 05/02/18 02:41 INR 1.3 05/02/18 02:41 APTT 37 SECONDS (21-34) H 05/02/18 02:41 Attending/Attestation - Attestation I have personally seen and examined this patient.: Yes I have fully participated in the care of the patient.: Yes I have reviewed all pertinent clinical information, including history, physical exam and plan: Yes Notes (Text): Patient seen, examined and case discussed with medical artist. Patient seen with family present at bedside this afternoon with the assistance of the [employer] Repairer: Crystal Swanson in Hebrew. patient has had repeat blood and urine cultures collected prior to insertion of PICC line. Patient has had PICC line placed right upper extremity. White count has resolved. Patient is on day 4 of IV abx. We have translated with assistance of Joann that patient is will need IV abx and to meet with urology post hospitalization for removal of stent placed by urology. Patient noted left flank pain, suprapubic, and LLQ pain on exam. We will continue IV fluids and pain control. Assessment/Plan 1) Sepsis ESBL+ UTI EBSL+ Bacteremia Assessment/Plan * Criteria: 102.7F, leukopenic, source of infection: bacteremia, urinary tract infection * Lactic acid: 2.0--> 0.7 * Urology (Dr. Noe) on case help appreciated * Blood culture (05/02/18): E. Coli +ESBL X2 * F/u Blood culture (05/05/18)-->were collected * Urine culture (05/02/18): E. Coli * F/u Urine culture (05/05/18)-->was collected * Contact isolation * Meropenem 1 gram IVPB Q8H (active since 05/02/18) * PICC line placed for longterm IV abx * start Florastor 250mg PO BID * Procalcitonin: 80.21--->5.54 * Tylenol 650mg PO Q6H PRN 2) Nephrolithiasis Left Hydroureteronephrosis Assessment/Plan * Urology (Dr. Noe) on case help appreciated * CT Abdomen/pelvis (05/02/18): mild left hydroureteronephrosis secondary to an obstructing 3 mm calculus in the left uretovesciular junction. moderate inflammatory left perinephric fat stranding. delayed left sided nephrogram in comparison to the right. bilateral renal collecting system calcificiations/ calculi. * Renal US (05/02/18): mild left perinephric fluid. Mild left hydronephrosis. Possible forniceal rupture due to more distal obstruction of the collecting system. 5 mm nonobstructing calculus noted in the both right and left kidney * s/p cystogram and stent placement (05/02/18): official op note pending * Flomax 0.4mg PO daily 3) Soft tissue density in left breast Assessment/Plan * Recommended for outpatient breast US and mammogram for further investigation in abnormality noted on CT scan. 4) Electrolyte abnormalities Assessment/Plan * monitor and replete 5) Prophylaxis * DVT PPx:: SCDs, Heparin 5000U SC Q12 * GI: Protonix 40 mg IVP daily
[2018-05-05 08:01] LABS: BASO % 0.3 % (0.0-2.0); EOS # 0.1 K/uL (0.0-0.7); EOS % 1.9 % (0.0-4.0); HEMOGLOBIN 10.3 g/dL (11.0-16.0); LYMPH # 1.9 K/uL (1.0-4.3); LYMPH % 26.9 % (20.0-40.0); MEAN CELL VOLUME 83.6 fL (81.0-99.0); MEAN CORPUSCULAR HEMOGLOBIN 27.9 pg (27.0-31.0); MEAN CORPUSCULAR HGB CONC 33.4 g/dL (33.0-37.0); MEAN PLATELET VOLUME 9.8 fL (7.2-11.7); MONO # 0.4 K/uL (0.0-0.8); MONO % 5.8 % (0.0-10.0); NEUT # 4.5 K/uL (1.8-7.0); NEUT % 65.1 % (50.0-75.0); RBC 3.69 Mil/uL (3.80-5.20); RED CELL DISTRIBUTION WIDTH 14.1 % (11.5-14.5)
[2018-05-05 08:06] LABS: ALB/GLOB RATIO 1.3 (1.0-2.1); ALBUMIN 3.1 g/dL (3.5-5.0); ALT/SGPT 27 U/L (9-52); AST/SGOT 11 U/L (14-36); BLOOD UREA NITROGEN 10 mg/dL (7-17); CALCIUM 8.6 mg/dl (8.6-10.4); GFR NON-AFRICAN AMERICAN > 60
[2018-05-05 08:11] LABS: WHITE BLOOD COUNT 6.9 K/uL (4.8-10.8)
[2018-05-05] MEDS ORDERED: Pneumococcal 23-Valent Vaccine IM ONE (10:00)
[2018-05-05] MEDS: Lactobacillus Acidophilus 500 MU Cap PO SCH ×2 (10:40→17:48)
--- NOTE | 2018-05-05 13:35 | RAD ---
Date of service: 05/05/2018 HISTORY: verify Right PICC COMPARISON: No prior. FINDINGS: LUNGS: Suspect left lower lobe consolidation as well as possible pleural effusion. No infiltrate elsewhere. PLEURA: Probable small left pleural effusion. No right pleural effusion. No pneumothorax. CARDIOVASCULAR: Normal heart size. Right PICC catheter. The tip of the catheter is difficult to appreciate but likely resides in the region of the superior vena cava. OSSEOUS STRUCTURES: No significant abnormalities. VISUALIZED UPPER ABDOMEN: Normal. OTHER FINDINGS: None. IMPRESSION: Left basilar consolidation and probable small left pleural effusion. Right PICC catheter terminating in the region of the superior vena cava.
[2018-05-05] MEDS ORDERED: Saccharomyces Boulardi 250 mg Cap PO SCH (22:45)
[2018-05-06] MEDS: Meropenem 1 GM in Sodium Chloride 0.9% 100 ML IVPB SCH ×3 (05:29→21:36)
--- NOTE | 2018-05-06 06:48 | CP.PCM.PN ---
<Neena Ma L - Last Filed: 05/06/18 16:56> Subjective - Date & Time of Evaluation Date of Evaluation: 05/06/18 Time of Evaluation: 06:47 - Subjective Subjective: Resident Progress Note for Hospitalist Service Patient examined at bedside. No acute events overnight. States that she is eating and drinking well. She is still having abdominal pain in her left lower quadrant and back pain, however this is improving. She was able to urinate, denies passage of stone. She had four bowel movements today with looser stools, but no diarrhea. Denies chest pain, shortness of breath, constipation, dysuria. Information was obtained with assistance of rigger third Kat Day #[id number] Objective - Vital Signs/Intake and Output Vital Signs (last 24 hours): Temp Pulse Resp BP Pulse Ox 97.7 F 48 L 20 145/77 100 05/06/18 00:00 05/06/18 00:00 05/06/18 00:00 05/06/18 00:00 05/06/18 00:00 Intake and Output: 05/05/18 05/06/18 18:59 06:59 Intake Total 1030 2900 Balance 1030 2900 - Medications Medications: Current Medications Acetaminophen (Tylenol 325mg Tab) 650 mg PO Q6 PRN PRN Reason: Fever >100.4 F Last Admin: 05/02/18 12:37 Dose: 650 mg Heparin Sodium (Porcine) (Heparin) 5,000 units SC Q12 [facility] Last Admin: 05/05/18 21:07 Dose: 5,000 units Meropenem 1 gm/ Sodium (Chloride) 100 mls @ 100 mls/hr IVPB Q8H [facility] PRN Reason: Protocol Last Admin: 05/06/18 05:29 Dose: 100 mls/hr Sodium Chloride (Sodium Chloride 0.9%) 1,000 mls @ 100 mls/hr IV .Q10H [facility] Last Admin: 05/05/18 22:50 Dose: 100 mls/hr Ketorolac Tromethamine (Toradol) 30 mg IVP Q6 PRN PRN Reason: Pain, severe (8-10) Last Admin: 05/02/18 20:00 Dose: 30 mg Ketorolac Tromethamine (Toradol) 15 mg IVP Q6 PRN PRN Reason: Pain, moderate (4-7) Last Admin: 05/04/18 01:04 Dose: 15 mg Lactobacillus Acidophilus (Bacid Acidophilus) 1 cap PO BID [facility] Last Admin: 05/05/18 17:48 Dose: 1 cap Ondansetron HCl (Zofran Inj) 4 mg IVP Q6 PRN PRN Reason: Nausea/Vomiting Pantoprazole Sodium (Protonix Inj) 40 mg IVP DAILY [facility] Last Admin: 05/05/18 14:49 Dose: 40 mg Tamsulosin HCl (Flomax) 0.4 mg PO DAILY [facility] Last Admin: 05/05/18 10:40 Dose: 0.4 mg - Labs Labs: 05/05/18 07:18 05/05/18 07:18 PT 14.0 SECONDS (9.7-12.2) H 05/02/18 02:41 INR 1.3 05/02/18 02:41 APTT 37 SECONDS (21-34) H 05/02/18 02:41 - Additional Findings Additional findings: - Constitutional Appears: Non-toxic - Head Exam Head Exam: ATRAUMATIC, NORMAL INSPECTION - Eye Exam Eye Exam: EOMI - ENT Exam ENT Exam: Mucous Membranes Moist - Neck Exam Neck Exam: Full ROM - Respiratory Exam Respiratory Exam: NORMAL BREATHING PATTERN, Clear to Auscultation Bilaterally - Cardiovascular Exam Cardiovascular Exam: Regular Rhythm, +S1, +S2 - GI/Abdominal Exam GI & Abdominal Exam: Soft, Tenderness (LLQ), Normal Bowel Sounds. absent: Rigid - Extremities Exam Extremities Exam: Full ROM. absent: Calf Tenderness, Pedal Edema - Back Exam Back Exam: CVA tenderness (L) - Neurological Exam Neurological Exam: Alert, Awake, Oriented x3 - Psychiatric Exam Psychiatric exam: Normal Affect, Normal Mood - Skin Skin Exam: Dry, Intact, Warm Assessment and Plan - Assessment and Plan (Free Text) Plan: ESBL Urinary Tract Infection - Sensitive to Merrem 1g IV Q8h, started 05/02 - Contact precautions - 05/05 blood cultures negative x2 - 05/05 urine culture no growth Bandemia - Febrile, tachycardic at admission - Leukocytosis as well as bands of 18 noted on 05/03 - Likely secondary to obstructing left distal ureteric calculus with hydronephrosis - Abdomen/Pelvis CT: mild left hydronephrosis and hydroureter secondary to 3mm stone in left ureterovesical junction - Procalcitonin at admission 80.21. Repeat level 5.54 - On Merrem 1g IV Q8h, started 05/02 - Probiotics Lactobacillus Acidophilus 1 cap PO BID - Tamsulosin 0.4 mg PO daily - Zofran 4mg IV Q6h prn - Toradol 15 mg IVP Q6 PRN for moderate pain, Toradol 30 mg IVP Q6 PRN for severe pain - 05/02 U/C and B/C prelim findings positive for Gram negative rods. ESBL+ noted. Will need 10-14 day antibiotic course of therapy. Anticipated abx course end May 16. Repeat cultures 05/05 negative x2. - Picc line placed Nephrolithiasis - Renal ultrasound shows mild left perinephric fluid. Mild left hydronephrosis. Possible forniceal rupture due to more distal obstruction of the collecting system. 5 mm nonobstructing calculus noted in both the right and left kidney. - s/p cystoscopy with stent insertion - Strain urine for calculus. F/U - Urology Dr. Noe consulted. F/U recommendations Electrolyte abnormality - Continue to monitor and replete Soft tissue density in left breast - Incidental finding on abd/pelvis CT - 1.7 cm soft tissue density noted - Outpatient followup with mammogram Prophylaxis - DVT: SCDs, Heparin 5000U SC Q12 - GI: Protonix 40 mg IVP daily Dispo: Pending completion of antibiotic course and placement in outpatient transfusion center Neena Ma PGY-1 <Paloma Tovar V - Last Filed: 05/06/18 21:30> Objective - Vital Signs/Intake and Output Vital Signs (last 24 hours): Temp Pulse Resp BP Pulse Ox 98.3 F 75 20 112/66 98 05/06/18 16:00 05/06/18 16:00 05/06/18 16:00 05/06/18 16:00 05/06/18 16:00 Intake and Output: 05/06/18 05/07/18 18:59 06:59 Intake Total 1600 Balance 1600 - Medications Medications: Current Medications Acetaminophen (Tylenol 325mg Tab) 650 mg PO Q6 PRN PRN Reason: Fever >100.4 F Last Admin: 05/06/18 19:12 Dose: 650 mg Heparin Sodium (Porcine) (Heparin) 5,000 units SC Q12 [facility] Last Admin: 08/14/18 09:28 Dose: 5,000 units Meropenem 1 gm/ Sodium (Chloride) 100 mls @ 100 mls/hr IVPB Q8H [facility] PRN Reason: Protocol Last Admin: 05/06/18 13:45 Dose: 100 mls/hr Sodium Chloride (Sodium Chloride 0.9%) 1,000 mls @ 100 mls/hr IV .Q10H [facility] Last Admin: 05/06/18 17:48 Dose: 100 mls/hr Ketorolac Tromethamine (Toradol) 30 mg IVP Q6 PRN PRN Reason: Pain, severe (8-10) Last Admin: 05/02/18 20:00 Dose: 30 mg Ketorolac Tromethamine (Toradol) 15 mg IVP Q6 PRN PRN Reason: Pain, moderate (4-7) Last Admin: 05/04/18 01:04 Dose: 15 mg Lactobacillus Acidophilus (Bacid Acidophilus) 1 cap PO BID [facility] Last Admin: 05/06/18 17:47 Dose: 1 cap Ondansetron HCl (Zofran Inj) 4 mg IVP Q6 PRN PRN Reason: Nausea/Vomiting Pantoprazole Sodium (Protonix Inj) 40 mg IVP DAILY [facility] Last Admin: 05/06/18 09:28 Dose: 40 mg Tamsulosin HCl (Flomax) 0.4 mg PO DAILY [facility] Last Admin: 05/06/18 09:28 Dose: 0.4 mg - Labs Labs: 05/06/18 06:20 05/06/18 06:20 PT 14.0 SECONDS (9.7-12.2) H 05/02/18 02:41 INR 1.3 05/02/18 02:41 APTT 37 SECONDS (21-34) H 05/02/18 02:41 Attending/Attestation - Attestation I have personally seen and examined this patient.: Yes I have fully participated in the care of the patient.: Yes I have reviewed all pertinent clinical information, including history, physical exam and plan: Yes Notes (Text): Patient seen, examined and case discussed with medical billing representative. Patient seen with family present at bedside this afternoon with the assistance of the [employer] Officer: Kat Day #[id number]. Patient reports she is feeling better. Patient reports left flank pain is improving. +CVA tenderness left on exam. Patient's repeat cultures show no growth, white count has normalized, and afebrile. Patient reports she is having soft stools but denies watery diarrhea. Patient understands if there is a change in stool to let us know. Patient also understands she will need to be well-hydrated in light of kidney stone history and she will need to f/u urology for stent removal when she has completed IV abx therapy. We have spoken with case management for possible setup patient for outpatient transfusion center; noting we need an official ID on the case given the antibiotic on board, as well as frequency and duration. We will consult ID in light of this information. Assessment/Plan 1) Sepsis ESBL+ UTI EBSL+ Bacteremia Assessment/Plan * Criteria: 102.7F, leukopenic, source of infection: bacteremia, urinary tract infection * Lactic acid: 2.0--> 0.7 * Infectious Disease (Dr. 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 Noe) on case help appreciated * Blood culture (05/02/18): E. Coli +ESBL X2 * F/u Blood culture (05/05/18): no growth after 24hours X2 * Urine culture (05/02/18): E. Coli * F/u Urine culture (05/05/18): no growth * Contact isolation * Meropenem 1 gram IVPB Q8H (active since 05/02/18) * PICC line placed for custodial IV abx * Florastor 250mg PO BID * Procalcitonin: 80.21--->5.54 * Tylenol 650mg PO Q6H PRN 2) Nephrolithiasis Left Hydroureteronephrosis Assessment/Plan * Urology (Dr. Noe) on case help appreciated * CT Abdomen/pelvis (05/02/18): mild left hydroureteronephrosis secondary to an obstructing 3 mm calculus in the left uretovesciular junction. moderate inflammatory left perinephric fat stranding. delayed left sided nephrogram in comparison to the right. bilateral renal collecting system calcificiations/ calculi. * Renal US (05/02/18): mild left perinephric fluid. Mild left hydronephrosis. Possible forniceal rupture due to more distal obstruction of the collecting system. 5 mm nonobstructing calculus noted in the both right and left kidney * s/p cystogram and stent placement (05/02/18): official op note pending * Flomax 0.4mg PO daily * NS 100cc/hr 3) Soft tissue density in left breast Assessment/Plan * Recommended for outpatient breast US and mammogram for further investigation in abnormality noted on CT scan. 4) Electrolyte abnormalities Assessment/Plan * monitor and replete 5) Prophylaxis * DVT PPx:: SCDs, Heparin 5000U SC Q12 * GI: Protonix 40 mg IVP daily
[2018-05-06 06:51] LABS: ALB/GLOB RATIO 1.3 (1.0-2.1); ALBUMIN 2.9 g/dL (3.5-5.0); ALT/SGPT 25 U/L (9-52); AST/SGOT 9 U/L (14-36); BLOOD UREA NITROGEN 9 mg/dL (7-17); GFR NON-AFRICAN AMERICAN > 60
[2018-05-06 07:48] LABS: BASO % 0.5 % (0.0-2.0); EOS # 0.1 K/uL (0.0-0.7); EOS % 2.1 % (0.0-4.0); HEMOGLOBIN 10.1 g/dL (11.0-16.0); LYMPH # 1.9 K/uL (1.0-4.3); LYMPH % 30.8 % (20.0-40.0); MEAN CORPUSCULAR HEMOGLOBIN 28.1 pg (27.0-31.0); MEAN CORPUSCULAR HGB CONC 33.9 g/dL (33.0-37.0); MONO # 0.5 K/uL (0.0-0.8); NEUT # 3.5 K/uL (1.8-7.0); NEUT % 57.6 % (50.0-75.0); NRBC % 0.1 % (0.0-2.0); RBC 3.6 Mil/uL (3.80-5.20); RED CELL DISTRIBUTION WIDTH 14.4 % (11.5-14.5); WHITE BLOOD COUNT 6.1 K/uL (4.8-10.8)
[2018-05-06] MEDS: Lactobacillus Acidophilus 500 MU Cap PO SCH ×2 (09:28→17:47)
[2018-05-06] MEDS: Sodium Chloride 0.9% 1,000 ML IV SCH ×2 (09:29→17:48)
[2018-05-06 16:34] VITALS: RESP 20
[2018-05-07] MEDS: Meropenem 1 GM in Sodium Chloride 0.9% 100 ML IVPB SCH ×3 (05:31→21:46)
[2018-05-07] MEDS: Sodium Chloride 0.9% 1,000 ML IV SCH (05:32)
[2018-05-07 06:02] LABS: BASO % 0.6 % (0.0-2.0); EOS # 0.2 K/uL (0.0-0.7); EOS % 2.8 % (0.0-4.0); HEMOGLOBIN 10.3 g/dL (11.0-16.0); LYMPH # 2.3 K/uL (1.0-4.3); LYMPH % 40.3 % (20.0-40.0); MEAN CORPUSCULAR HEMOGLOBIN 27.5 pg (27.0-31.0); MEAN CORPUSCULAR HGB CONC 33.1 g/dL (33.0-37.0); MEAN PLATELET VOLUME 9.1 fL (7.2-11.7); MONO # 0.7 K/uL (0.0-0.8); MONO % 11.6 % (0.0-10.0); NEUT # 2.6 K/uL (1.8-7.0); NEUT % 44.7 % (50.0-75.0); NRBC % 0.1 % (0.0-2.0); RBC 3.74 Mil/uL (3.80-5.20); RED CELL DISTRIBUTION WIDTH 14.2 % (11.5-14.5); WHITE BLOOD COUNT 5.7 K/uL (4.8-10.8)
[2018-05-07 06:24] LABS: ALB/GLOB RATIO 1.2 (1.0-2.1); ALBUMIN 2.9 g/dL (3.5-5.0); ALT/SGPT 25 U/L (9-52); AST/SGOT 11 U/L (14-36); BLOOD UREA NITROGEN 9 mg/dL (7-17); CALCIUM 8.4 mg/dl (8.6-10.4); GFR NON-AFRICAN AMERICAN > 60
--- NOTE | 2018-05-07 06:57 | CP.PCM.PN ---
<Neena Ma L - Last Filed: 05/07/18 10:29> Subjective - Date & Time of Evaluation Date of Evaluation: 05/07/18 Time of Evaluation: 06:56 - Subjective Subjective: Resident Progress Note for Hospitalist Service Patient examined at bedside. No acute events overnight. Patient states that she is feeling better today. She is still experiencing pain in her left lower quadrant, however she states her back pain is resolved. She is eating and drinking well. She had one bowel movement today with no constipation and no diarrhea. She has been straining her urine and denies passage of any ureteric calculi. Denies fever, chills, chest pain, shortness of breath, dysuria. Information was obtained with help of vegetable buncher Yogesh Pena #[id number] Objective - Vital Signs/Intake and Output Vital Signs (last 24 hours): Temp Pulse Resp BP Pulse Ox 98.4 F 62 20 119/72 97 05/06/18 23:25 05/06/18 23:25 05/06/18 23:25 05/06/18 23:25 05/06/18 23:25 Intake and Output: 05/06/18 05/07/18 18:59 06:59 Intake Total 1600 Balance 1600 - Medications Medications: Current Medications Acetaminophen (Tylenol 325mg Tab) 650 mg PO Q6 PRN PRN Reason: Fever >100.4 F Last Admin: 05/06/18 19:12 Dose: 650 mg Heparin Sodium (Porcine) (Heparin) 5,000 units SC Q12 [facility] Last Admin: 05/06/18 21:35 Dose: 5,000 units Meropenem 1 gm/ Sodium (Chloride) 100 mls @ 100 mls/hr IVPB Q8H [facility] PRN Reason: Protocol Last Admin: 05/07/18 05:31 Dose: 100 mls/hr Sodium Chloride (Sodium Chloride 0.9%) 1,000 mls @ 100 mls/hr IV .Q10H [facility] Last Admin: 05/07/18 05:32 Dose: Not Given Ketorolac Tromethamine (Toradol) 30 mg IVP Q6 PRN PRN Reason: Pain, severe (8-10) Last Admin: 05/02/18 20:00 Dose: 30 mg Ketorolac Tromethamine (Toradol) 15 mg IVP Q6 PRN PRN Reason: Pain, moderate (4-7) Last Admin: 05/04/18 01:04 Dose: 15 mg Lactobacillus Acidophilus (Bacid Acidophilus) 1 cap PO BID [facility] Last Admin: 05/06/18 17:47 Dose: 1 cap Ondansetron HCl (Zofran Inj) 4 mg IVP Q6 PRN PRN Reason: Nausea/Vomiting Pantoprazole Sodium (Protonix Inj) 40 mg IVP DAILY [facility] Last Admin: 05/06/18 09:28 Dose: 40 mg Tamsulosin HCl (Flomax) 0.4 mg PO DAILY [facility] Last Admin: 05/06/18 09:28 Dose: 0.4 mg - Labs Labs: 05/07/18 05:44 05/07/18 05:44 PT 14.0 SECONDS (9.7-12.2) H 05/02/18 02:41 INR 1.3 05/02/18 02:41 APTT 37 SECONDS (21-34) H 05/02/18 02:41 - Additional Findings Additional findings: - Constitutional Appears: Non-toxic - Head Exam Head Exam: ATRAUMATIC, NORMAL INSPECTION - Eye Exam Eye Exam: EOMI - ENT Exam ENT Exam: Mucous Membranes Moist - Neck Exam Neck Exam: Full ROM - Respiratory Exam Respiratory Exam: NORMAL BREATHING PATTERN, Clear to Auscultation Bilaterally - Cardiovascular Exam Cardiovascular Exam: Regular Rhythm, +S1, +S2 - GI/Abdominal Exam GI & Abdominal Exam: Soft, Tenderness (LLQ), Normal Bowel Sounds. absent: Rigid - Extremities Exam Extremities Exam: Full ROM. absent: Calf Tenderness, Pedal Edema - Back Exam Back Exam: Normal. absent: CVA tenderness - Neurological Exam Neurological Exam: Alert, Awake, Oriented x3 - Psychiatric Exam Psychiatric exam: Normal Affect, Normal Mood - Skin Skin Exam: Dry, Intact, Warm Assessment and Plan - Assessment and Plan (Free Text) Plan: ESBL Urinary Tract Infection - Sensitive to Merrem 1g IV Q8h, started 05/02 - Contact precautions - 05/05 blood cultures negative x2 - 05/05 urine culture no growth Bandemia - Febrile, tachycardic at admission - Leukocytosis as well as bands of 18 noted on 05/03 - Likely secondary to obstructing left distal ureteric calculus with hydronephrosis - Abdomen/Pelvis CT: mild left hydronephrosis and hydroureter secondary to 3mm stone in left ureterovesical junction - Procalcitonin at admission 80.21. Repeat level 5.54 - On Merrem 1g IV Q8h, started 05/02 - Probiotics Lactobacillus Acidophilus 1 cap PO BID - Tamsulosin 0.4 mg PO daily - Zofran 4mg IV Q6h prn - Toradol 15 mg IVP Q6 PRN for moderate pain, Toradol 30 mg IVP Q6 PRN for severe pain - 05/02 U/C and B/C prelim findings positive for Gram negative rods. ESBL+ noted. Will need 10-14 day antibiotic course of therapy. Anticipated abx course end May 16. Repeat cultures 05/05 negative x2. - Picc line placed Nephrolithiasis - Renal ultrasound shows mild left perinephric fluid. Mild left hydronephrosis. Possible forniceal rupture due to more distal obstruction of the collecting system. 5 mm nonobstructing calculus noted in both the right and left kidney. - s/p cystoscopy with stent insertion - Strain urine for calculus. F/U - Urology Dr. Noe consulted. F/U recommendations Electrolyte abnormality - Continue to monitor and replete Soft tissue density in left breast - Incidental finding on abd/pelvis CT - 1.7 cm soft tissue density noted - Outpatient followup with mammogram Prophylaxis - DVT: SCDs, Heparin 5000U SC Q12 - GI: Protonix 40 mg IVP daily Dispo: Pending completion of antibiotic course and placement in outpatient transfusion center Neena Ma PGY-1 <Joshua Jovel - Last Filed: 05/07/18 17:51> Objective - Vital Signs/Intake and Output Vital Signs (last 24 hours): Temp Pulse Resp BP Pulse Ox 98.5 F 69 20 132/78 95 05/07/18 16:00 05/07/18 16:00 05/07/18 16:00 05/07/18 16:00 05/07/18 16:00 Intake and Output: 05/07/18 05/07/18 06:59 18:59 Intake Total 1400 Balance 1400 - Medications Medications: Current Medications Acetaminophen (Tylenol 325mg Tab) 650 mg PO Q6 PRN PRN Reason: Fever >100.4 F Last Admin: 05/07/18 15:41 Dose: 650 mg Heparin Sodium (Porcine) (Heparin) 5,000 units SC Q12 [facility] Last Admin: 05/07/18 09:52 Dose: 5,000 units Meropenem 1 gm/ Sodium (Chloride) 100 mls @ 100 mls/hr IVPB Q8H [facility] PRN Reason: Protocol Last Admin: 05/07/18 13:31 Dose: 100 mls/hr Ketorolac Tromethamine (Toradol) 30 mg IVP Q6 PRN PRN Reason: Pain, severe (8-10) Last Admin: 05/02/18 20:00 Dose: 30 mg Ketorolac Tromethamine (Toradol) 15 mg IVP Q6 PRN PRN Reason: Pain, moderate (4-7) Last Admin: 05/04/18 01:04 Dose: 15 mg Lactobacillus Acidophilus (Bacid Acidophilus) 1 cap PO BID [facility] Last Admin: 05/07/18 09:52 Dose: 1 cap Ondansetron HCl (Zofran Inj) 4 mg IVP Q6 PRN PRN Reason: Nausea/Vomiting Pantoprazole Sodium (Protonix Inj) 40 mg IVP DAILY [facility] Last Admin: 05/07/18 09:52 Dose: 40 mg Tamsulosin HCl (Flomax) 0.4 mg PO DAILY [facility] Last Admin: 05/07/18 09:52 Dose: 0.4 mg - Labs Labs: 05/07/18 05:44 05/07/18 05:44 PT 14.0 SECONDS (9.7-12.2) H 05/02/18 02:41 INR 1.3 05/02/18 02:41 APTT 37 SECONDS (21-34) H 05/02/18 02:41 Attending/Attestation - Attestation I have personally seen and examined this patient.: Yes I have fully participated in the care of the patient.: Yes I have reviewed all pertinent clinical information, including history, physical exam and plan: Yes Notes (Text): 05/07/18 17:16 Patient was seen and examined at 1:30 PM 05/07/18 554 Care of this patient was discussed in detail with resident Dr. Ma. Also on ROS: Bifrontal headache (she knows to ask for Tylenol when needed) Soft bowel movement this morning NO N/V NO pain with urination and normal color of urine Also on Exam: Left CVA tenderness upon palpitation Assessments: 1). ESBL E. coli UTI/Pyelophritis secondary to Left Ureteral Nephrolithiasis S/ P Left Ureteral Stent 2). E. coli Bacteremia 3). Possible LLL Consolidation as noted on Chest Chest X Ray 05/05/18 4). Left Breast Soft Tissue 1.7 cm Density NO fevers Blood pressure stable Repeat Urine Culture 05/05/18 shows NO growth Repeat Blood Culture 05/05/18 is negative to date Continue the Meropenem through 05/16/18 through Right Arm PICC Line: await further recommendations from JES[facility] Elizabeth Chest X Ray 05/05/18 (done S/P PICC Insertion) revealed possibility of LLL consolidation however please note that the CT Abdomen/Pelvis done on admission did not indicate any lower lung abnormality. Patient has NO cough/dyspnea/SOB/ wheezing. Even if there is an actual LLL consolidation, the Meropenem being used for the ESBL E. coli in urine and blood, will cover for this possibility. Her IVF was discontinued due to small left pleural effusion noted on Chest X Ray 05/05/18 and because patient is able to take fluids by mouth and she was encouraged to continue to do so. She will need outpatient Mammogram. Joshua Jovel D.O.
[2018-05-07] MEDS: Lactobacillus Acidophilus 500 MU Cap PO SCH ×2 (09:52→17:22)
--- NOTE | 2018-05-07 17:44 | CP.PCM.CON ---
History of Present Illness - History of Present Illness History of Present Illness: 37 yo [place] female with hx of nephrolithiasis is admitted here with fever and flank pain Being trated for pyelonephritis with E Coli bactereia ( ESBL+) on Merrem and had left stent placement for nephrollithiasis also had incidental finding of ? left breast lesion requiring mammography ID requested for this PMHx: denies SurgHx: denies FamHx: denies SocHx: denies tobacco/alcohol/drug use Allergies: NKDA Medications: denies Review of Systems - Review of Systems All systems: reviewed and no additional remarkable complaints except - Constitutional Constitutional: As Per HPI - EENT Eyes: absent: As Per HPI, Blind Spots, Blurred Vision, Change in Vision, Decreased Night Vision, Diplopia, Discharge, Dry Eye, Exophthalmos, Floaters, Irritation, Itchy Eyes, Loss of Peripheral Vision, Pain, Photophobia, Requires Corrective Lenses, Sees Flashes, Spots in Vision, Tunnel Vision, Other Visual Disturbances, Loss of Vision, Other Ears: absent: As Per HPI, Decreased Hearing, Ear Discharge, Ear Pain, Tinnitus, Abnormal Hearing, Disequilibrium, Dizziness, Other Nose/Mouth/Throat: absent: As Per HPI, Epistaxis, Nasal Congestion, Nasal Discharge, Nasal Obstruction, Nasal Trauma, Nose Pain, Post Nasal Drip, Sinus Pain, Sinus Pressure, Bleeding Gums, Change in Voice, Dental Pain, Dry Mouth, Dysphagia, Halitosis, Hoarsness, Lip Swelling, Mouth Lesions, Mouth Pain, Odynophagia, Sore Throat, Throat Swelling, Tongue Swelling, Facial Pain, Neck Pain, Neck Mass, Other - Breasts Breasts: absent: As Per HPI, Change in Shape, Mass, Pain, Nipple Discharge, Nipple Inversion, Skin Changes, Swelling, Other - Cardiovascular Cardiovascular: absent: As Per HPI, Acrocyanosis, Chest Pain, Chest Pain at Rest , Chest Pain with Activity, Claudication, Diaphoresis, Dyspnea, Dyspnea on Exertion, Edema, Irregular Heart Rhythm, Pain Radiating to Arm/Neck/Jaw, Leg Edema, Leg Ulcers, Lightheadedness, Orthopnea, Palpitations, Paroxysmal Nocturnal Dyspnea, Pedal Edema, Radiating Pain, Rapid Heart Rate, Slow Heart Rate, Syncope, Other - Respiratory Respiratory: absent: As Per HPI, Cough, Dyspnea, Hemoptysis, Dyspnea on Exertion , Wheezing, Snoring, Stridor, Pain on Inspiration, Chest Congestion, Excessive Mucous Production, Change in Mucous Color, Pain with Coughing, Other - Gastrointestinal Gastrointestinal: absent: As Per HPI, Abdominal Pain, Belching, Bloating, Change in Bowel Habits, Change in Stool Character, Coffee Ground Emesis, Constipation, Cramping, Diarrhea, Dyspepsia, Dysphagia, Early Satiety, Excessive Flatus, Fecal Incontinence, Heartburn, Hematemesis, Hematochezia, Loose Stools, Melena, Nausea, Odynophagia, Temesmus, Vomiting, Other - Genitourinary Genitourinary: As Per HPI - Reproductive: Female Reproductive:Female: absent: As Per HPI, Amenorrhea, Amenorrhea/ Control, Currently Menstual, Cycle <21 Days, Cycle >35 Days, Cycle Variable, Menses 1-7 Days, Menses >/= 8 Days, Menses Variable, Cycle > 4 Weeks Between, No Menses for 6 Months, Heavy Menses, Light Menses, Normal Menses, Spotting Between Cycles , S/P Hysterectomy, Menopausal, Post Menopausal, Premenarche, Abnormal Vaginal Bleeding, Dysmenorrhea, Dyspareunia, Genital Lesions, Genital Pruritis, Pelvic Pain, Prolapse Symptoms, Sexual Dysfunction, Vaginal Discharge, Vaginal Dryness , Vaginal Odor, Vaginal Pruritis, Other - Menstruation Menstruation: absent: As Per HPI, Amenorrhea, Amenorrhea/ Control, Currently Menstual, Cycle <21 Days, Cycle >35 Days, Cycle Variable, Menses 1-7 Days, Menses >/= 8 Days, Menses Variable, Cycle > 4 Weeks Between, No Menses for 6 Months, Heavy Menses, Light Menses, Normal Menses, Spotting Between Cycles , S/P Hysterectomy, Menopausal, Post Menopausal, Premenarche, Abnormal Vaginal Bleeding, Dysmenorrhea, Other - Musculoskeletal Musculoskeletal: absent: As Per HPI, Abnormal Gait, Arthralgias, Atrophy, Back Pain, Deformity, Joint Swelling, Limited Range of Motion, Loss of Height, Muscle Cramps, Muscle Weakness, Myalgias, Neck Pain, Numbness, Radiating Pain into Limb, Stiffness, Tingling, Other - Neurological Neurological: absent: As Per HPI, Abnormal Gait, Abnormal Hearing, Abnormal Movements, Abnormal Speech, Behavioral Changes, Burning Sensations, Confusion, Convulsions, Disequilibrium, Dizziness, Numbness, Focal Weakness, Frequent Falls , Headaches, Lack of Coordination, Loss of Vision, Memory Loss, Paresthesias, Radicular Pain, Restless Legs, Sensory Deficit, Syncope, Tingling, Tremor, Vertigo, Weakness, Other Visual Disturbances, Other - Psychiatric Psychiatric: absent: As Per HPI, Abnormal Sleep Pattern, Anhedonia, Anxiety, Auditory Hallucinations, Behavioral Changes, Change in Appetite, Change in Libido, Confusion, Depression, Difficulty Concentrating, Hallucinations, Homicidal Ideation, Hopelessness, Irritability, Memory Loss, Mood Swings, Panic Attacks, Paranoia, Suicidal Ideation, Visual Hallucinations, Tactile Hallucinations, Other - Endocrine Endocrine: absent: As Per HPI, Change in Body Appearance, Change in Libido, Cold Intolorance, Deepening of Voice, Excessive Sweating, Fatigue, Flushing, Heat Intolorance, Increase in Ring/Shoe/Hat Size, Palpitations, Polydipsia, Polyphagia, Polyuria, Other - Hematologic/Lymphatic Hematologic: absent: As Per HPI, Easy Bleeding, Easy Bruising, Lymphadenopathy, Other Past Patient History - Infectious Disease Hx of Infectious Diseases: None - Past Medical History & Family History Past Medical History?: Yes - Past Social History Smoking Status: Never Smoked - CARDIAC Hx Cardiac Disorders: No - PULMONARY Hx Respiratory Disorders: No - NEUROLOGICAL Hx Neurological Disorder: No - HEENT Hx HEENT Problems: No - RENAL Hx Chronic Kidney Disease: No - ENDOCRINE/METABOLIC Hx Endocrine Disorders: No - HEMATOLOGICAL/ONCOLOGICAL Hx Blood Disorders: No - INTEGUMENTARY Hx Dermatological Problems: No - MUSCULOSKELETAL/RHEUMATOLOGICAL Hx Musculoskeletal Disorders: No Hx Falls: No - GASTROINTESTINAL Hx Gastrointestinal Disorders: No - GENITOURINARY/GYNECOLOGICAL Hx Genitourinary Disorders: No - PSYCHIATRIC Hx Substance Use: No - SURGICAL HISTORY Hx Surgeries: No - ANESTHESIA Hx Anesthesia: No Hx Anesthesia Reactions: No Hx Malignant Hyperthermia: No Has any member of the family had a problem w/ anesthesia?: No Meds Allergies/Adverse Reactions: Allergies Allergy/AdvReac Type Severity Reaction Status Date / Time No Known Allergies Allergy Verified 05/02/18 01:15 - Medications Medications: Current Medications Acetaminophen (Tylenol 325mg Tab) 650 mg PO Q6 PRN PRN Reason: Fever >100.4 F Last Admin: 05/07/18 15:41 Dose: 650 mg Heparin Sodium (Porcine) (Heparin) 5,000 units SC Q12 [facility] Last Admin: 05/07/18 09:52 Dose: 5,000 units Meropenem 1 gm/ Sodium (Chloride) 100 mls @ 100 mls/hr IVPB Q8H [facility] PRN Reason: Protocol Last Admin: 05/07/18 13:31 Dose: 100 mls/hr Ketorolac Tromethamine (Toradol) 30 mg IVP Q6 PRN PRN Reason: Pain, severe (8-10) Last Admin: 05/02/18 20:00 Dose: 30 mg Ketorolac Tromethamine (Toradol) 15 mg IVP Q6 PRN PRN Reason: Pain, moderate (4-7) Last Admin: 05/04/18 01:04 Dose: 15 mg Lactobacillus Acidophilus (Bacid Acidophilus) 1 cap PO BID [facility] Last Admin: 05/07/18 17:22 Dose: 1 cap Ondansetron HCl (Zofran Inj) 4 mg IVP Q6 PRN PRN Reason: Nausea/Vomiting Pantoprazole Sodium (Protonix Inj) 40 mg IVP DAILY [facility] Last Admin: 05/07/18 09:52 Dose: 40 mg Tamsulosin HCl (Flomax) 0.4 mg PO DAILY [facility] Last Admin: 05/07/18 09:52 Dose: 0.4 mg Physical Exam - Constitutional Appears: Non-toxic, Chronically Ill - Head Exam Head Exam: NORMOCEPHALIC - Eye Exam Eye Exam: absent: Scleral icterus - ENT Exam ENT Exam: Mucous Membranes Dry, Normal External Ear Exam, Normal Oropharynx - Neck Exam Neck exam: Negative for: Lymphadenopathy - Respiratory Exam Respiratory Exam: Decreased Breath Sounds, Clear to Auscultation Bilateral - Cardiovascular Exam Cardiovascular Exam: REGULAR RHYTHM, +S1, +S2 - GI/Abdominal Exam GI & Abdominal Exam: Diminished Bowel Sounds, Soft. absent: Tenderness Additional comments: + left CVA / flank tenderness - Rectal Exam Rectal Exam: Deferred - Exam Exam: NORMAL INSPECTION - Extremities Exam Extremities exam: Negative for: pedal edema - Back Exam Back exam: absent: CVA tenderness (L), CVA tenderness (R) - Neurological Exam Neurological exam: Alert, CN II-XII Intact, Oriented x3, Reflexes Normal - Psychiatric Exam Psychiatric exam: Normal Mood - Skin Skin Exam: Dry Results - Vital Signs Recent Vital Signs: Last Vital Signs Temp 98.5 F 05/07/18 16:00 Pulse 69 05/07/18 16:00 Resp 20 05/07/18 16:00 BP 132/78 05/07/18 16:00 Pulse Ox 95 05/07/18 16:00 - Labs Result Diagrams: 05/07/18 05:44 05/07/18 05:44 Labs: Laboratory Results - last 24 hr 05/07/18 05/07/18 05:44 05:44 WBC 5.7 RBC 3.74 L Hgb 10.3 L Hct 31.1 L MCV 83.0 MCH 27.5 MCHC 33.1 RDW 14.2 Plt Count 198 MPV 9.1 Neut % (Auto) 44.7 L Lymph % (Auto) 40.3 H Norman % (Auto) 11.6 H Eos % (Auto) 2.8 Baso % (Auto) 0.6 Neut # (Auto) 2.6 Lymph # (Auto) 2.3 Norman # (Auto) 0.7 Eos # (Auto) 0.2 Baso # (Auto) 0.0 Sodium 140 Potassium 3.9 Chloride 106 Carbon Dioxide 26 Anion Gap 12 BUN 9 Creatinine 0.6 L Est GFR ( Amer) > 60 Est GFR (Non-Af Amer) > 60 Random Glucose 84 Calcium 8.4 L Phosphorus 3.4 Magnesium 1.8 Total Bilirubin 0.4 AST 11 L D ALT 25 Alkaline Phosphatase 54 Total Protein 5.4 L Albumin 2.9 L Globulin 2.4 Albumin/Globulin Ratio 1.2 Assessment & Plan - Assessment and Plan (Free Text) Assessment: resolving pyelonephritis secondary to ESBL+ E Coli / nephrolithiasis s/p stent placement ? Breast mass Needs IV Merrem then Invanz for total 14 days- if pyuria persists may need longer course with oral suppresive agent such as Macrobid consider out pt endocrine eval/ stone analuysis and follow up mammo
[2018-05-08] MEDS: Meropenem 1 GM in Sodium Chloride 0.9% 100 ML IVPB SCH ×3 (05:43→21:50)
[2018-05-08 07:53] LABS: BASO % 0.6 % (0.0-2.0); EOS # 0.2 K/uL (0.0-0.7); EOS % 2.7 % (0.0-4.0); HEMOGLOBIN 11.1 g/dL (11.0-16.0); LYMPH # 2.3 K/uL (1.0-4.3); LYMPH % 33.1 % (20.0-40.0); MEAN CELL VOLUME 82.5 fL (81.0-99.0); MEAN CORPUSCULAR HEMOGLOBIN 27.8 pg (27.0-31.0); MEAN CORPUSCULAR HGB CONC 33.7 g/dL (33.0-37.0); MEAN PLATELET VOLUME 9.2 fL (7.2-11.7); MONO # 0.7 K/uL (0.0-0.8); MONO % 10.6 % (0.0-10.0); NEUT # 3.7 K/uL (1.8-7.0); NRBC % 0.1 % (0.0-2.0); RBC 3.97 Mil/uL (3.80-5.20); RED CELL DISTRIBUTION WIDTH 13.9 % (11.5-14.5)
--- NOTE | 2018-05-08 07:55 | CP.PCM.PN ---
<Steve Gillis - Last Filed: 05/08/18 13:39> Subjective - Date & Time of Evaluation Date of Evaluation: 05/08/18 Time of Evaluation: 07:55 - Subjective Subjective: 37 y/o F examined at bedside. Pt appears well and in no acute distress and that no new symptoms developed overnight. Pt comments that their flank pain has improved since the previous day. Pt notes that they are no longer experiencing acute bouts of diarrhea but that their stool is still loose in quality. Objective - Vital Signs/Intake and Output Vital Signs (last 24 hours): Temp Pulse Resp BP Pulse Ox 98.4 F 76 20 134/80 95 05/07/18 23:05 05/07/18 23:05 05/07/18 23:05 05/07/18 23:05 05/07/18 23:05 - Medications Medications: Current Medications Acetaminophen (Tylenol 325mg Tab) 650 mg PO Q6 PRN PRN Reason: Fever >100.4 F Last Admin: 05/07/18 15:41 Dose: 650 mg Heparin Sodium (Porcine) (Heparin) 5,000 units SC Q12 [facility] Last Admin: 05/07/18 21:46 Dose: 5,000 units Meropenem 1 gm/ Sodium (Chloride) 100 mls @ 100 mls/hr IVPB Q8H [facility] PRN Reason: Protocol Last Admin: 05/08/18 05:43 Dose: 100 mls/hr Ketorolac Tromethamine (Toradol) 30 mg IVP Q6 PRN PRN Reason: Pain, severe (8-10) Last Admin: 05/02/18 20:00 Dose: 30 mg Ketorolac Tromethamine (Toradol) 15 mg IVP Q6 PRN PRN Reason: Pain, moderate (4-7) Last Admin: 05/04/18 01:04 Dose: 15 mg Lactobacillus Acidophilus (Bacid Acidophilus) 1 cap PO BID [facility] Last Admin: 05/07/18 17:22 Dose: 1 cap Ondansetron HCl (Zofran Inj) 4 mg IVP Q6 PRN PRN Reason: Nausea/Vomiting Pantoprazole Sodium (Protonix Inj) 40 mg IVP DAILY [facility] Last Admin: 05/07/18 09:52 Dose: 40 mg Tamsulosin HCl (Flomax) 0.4 mg PO DAILY [facility] Last Admin: 05/07/18 09:52 Dose: 0.4 mg - Labs Labs: 05/08/18 07:38 05/07/18 05:44 PT 14.0 SECONDS (9.7-12.2) H 05/02/18 02:41 INR 1.3 05/02/18 02:41 APTT 37 SECONDS (21-34) H 05/02/18 02:41 - Constitutional Appears: Well, No Acute Distress - Head Exam Head Exam: ATRAUMATIC, NORMAL INSPECTION, NORMOCEPHALIC - Eye Exam Eye Exam: Normal appearance - ENT Exam ENT Exam: Mucous Membranes Moist - Respiratory Exam Respiratory Exam: NORMAL BREATHING PATTERN - Cardiovascular Exam Cardiovascular Exam: REGULAR RHYTHM, +S1, +S2 - Back Exam Back Exam: CVA tenderness (L) - Neurological Exam Neurological Exam: Alert, Awake, Oriented x3 - Psychiatric Exam Psychiatric exam: Normal Affect, Normal Mood - Skin Skin Exam: Dry, Intact, Normal Color Assessment and Plan - Assessment and Plan (Free Text) Assessment: 37 y/o F with UTI, E.Coli sensitive to meropenem Plan: ESBL Urinary Tract Infection - Sensitive to Meropenem 1g IV Q8h, started 05/02. -14 day course- can complete with outpatient infusion: pending approval. - Contact precautions - 05/05 blood cultures negative x2 - 05/05 urine culture no growth Nephrolithiasis - Renal ultrasound shows mild left perinephric fluid. Mild left hydronephrosis. Possible forniceal rupture due to more distal obstruction of the collecting system. 5 mm nonobstructing calculus noted in both the right and left kidney. - s/p cystoscopy with stent insertion - Strain urine for calculus. F/U - Urology Dr. Noe consulted. Recommends outpt follow up Bandemia -resolved Electrolyte abnormality - Continue to monitor and replete Soft tissue density in left breast - Incidental finding on abd/pelvis CT - 1.7 cm soft tissue density noted - Outpatient followup with mammogram Prophylaxis - DVT: SCDs, Heparin 5000U SC Q12 - GI: Protonix 40 mg IVP daily Dispo: Pending completion of antibiotic course and placement in outpatient transfusion center <Paloma Tovar V - Last Filed: 05/08/18 16:21> Objective - Vital Signs/Intake and Output Vital Signs (last 24 hours): Temp Pulse Resp BP Pulse Ox 98.2 F 62 20 149/89 96 05/08/18 07:04 05/08/18 07:04 05/08/18 07:04 05/08/18 07:04 05/08/18 07:04 - Medications Medications: Current Medications Acetaminophen (Tylenol 325mg Tab) 650 mg PO Q6 PRN PRN Reason: Fever >100.4 F Last Admin: 05/07/18 15:41 Dose: 650 mg Heparin Sodium (Porcine) (Heparin) 5,000 units SC Q12 [facility] Last Admin: 05/08/18 09:04 Dose: 5,000 units Meropenem 1 gm/ Sodium (Chloride) 100 mls @ 100 mls/hr IVPB Q8H [facility] PRN Reason: Protocol Last Admin: 05/08/18 13:52 Dose: 100 mls/hr Ketorolac Tromethamine (Toradol) 30 mg IVP Q6 PRN PRN Reason: Pain, severe (8-10) Last Admin: 05/02/18 20:00 Dose: 30 mg Ketorolac Tromethamine (Toradol) 15 mg IVP Q6 PRN PRN Reason: Pain, moderate (4-7) Last Admin: 05/04/18 01:04 Dose: 15 mg Lactobacillus Acidophilus (Bacid Acidophilus) 1 cap PO BID [facility] Last Admin: 05/08/18 09:04 Dose: 1 cap Ondansetron HCl (Zofran Inj) 4 mg IVP Q6 PRN PRN Reason: Nausea/Vomiting Pantoprazole Sodium (Protonix Inj) 40 mg IVP DAILY [facility] Last Admin: 05/08/18 09:03 Dose: 40 mg Tamsulosin HCl (Flomax) 0.4 mg PO DAILY [facility] Last Admin: 05/08/18 09:04 Dose: 0.4 mg - Labs Labs: 05/08/18 07:38 05/08/18 07:38 PT 14.0 SECONDS (9.7-12.2) H 05/02/18 02:41 INR 1.3 05/02/18 02:41 APTT 37 SECONDS (21-34) H 05/02/18 02:41 Attending/Attestation - Attestation I have personally seen and examined this patient.: Yes I have fully participated in the care of the patient.: Yes I have reviewed all pertinent clinical information, including history, physical exam and plan: Yes Notes (Text): Patient seen, examined and case discussed with medical leader. Patient seen with family present at bedside this afternoon with the assistance of the [employer] [place]. Patient reports she is feeling better. Patient reports left flank pain is improving. +CVA tenderness left on exam. Patient's repeat cultures show no growth, white count has normalized, and afebrile. Patient reports she is having soft stools but denies watery diarrhea. Patient understands if there is a change in stool to let us know. IV fluids discontinued yesterday. Assessment/Plan 1) Sepsis ESBL+ UTI EBSL+ Bacteremia Assessment/Plan * Criteria: 102.7F, leukopenic, source of infection: bacteremia, urinary tract infection * Lactic acid: 2.0--> 0.7 * Infectious Disease (Dr. Elizabeth) can reconditioner--help appreciated * Needs IV Merrem then Invanz for total 14 days- if pyuria persists may need longer course with oral suppresive agent such as Macrobid * Meropenem 1 gram IVPB Q8H (active since 05/02/18; Day 6) * Urology (Dr. Noe) on case help appreciated * f/u outpatient for stent removal * Blood culture (05/02/18): E. Coli +ESBL X2 * Blood culture (05/05/18): no growth after 3 days X2 * Urine culture (05/02/18): E. Coli * Urine culture (05/05/18): no growth * Contact isolation * PICC line placed for halfway IV abx * Florastor 250mg PO BID * Procalcitonin: 80.21--->5.54--->repeat tomorrow * Tylenol 650mg PO Q6H PRN 2) Nephrolithiasis Left Hydroureteronephrosis Assessment/Plan * Urology (Dr. Noe) on case help appreciated * CT Abdomen/pelvis (05/02/18): mild left hydroureteronephrosis secondary to an obstructing 3 mm calculus in the left uretovesciular junction. moderate inflammatory left perinephric fat stranding. delayed left sided nephrogram in comparison to the right. bilateral renal collecting system calcificiations/ calculi. * Renal US (05/02/18): mild left perinephric fluid. Mild left hydronephrosis. Possible forniceal rupture due to more distal obstruction of the collecting system. 5 mm nonobstructing calculus noted in the both right and left kidney * s/p cystogram and stent placement (05/02/18): official op note pending * Flomax 0.4mg PO daily 3) Soft tissue density in left breast Assessment/Plan * Recommended for outpatient breast US and mammogram for further investigation in abnormality noted on CT scan. 4) Electrolyte abnormalities Assessment/Plan * monitor and replete 5) Prophylaxis * DVT PPx:: SCDs, Heparin 5000U SC Q12 * GI: Protonix 40 mg IVP zoie Disposition: Infectious Disease recommended for 14 days total of IV abx, Case management requesting script from ID with length, frequency, and labs recommended for rehab/outpatient transfusion.
[2018-05-08 08:11] LABS: ALB/GLOB RATIO 1.2 (1.0-2.1); ALBUMIN 3.3 g/dL (3.5-5.0); ALT/SGPT 34 U/L (9-52); AST/SGOT 30 U/L (14-36); BLOOD UREA NITROGEN 10 mg/dL (7-17); CALCIUM 8.9 mg/dl (8.6-10.4); GFR NON-AFRICAN AMERICAN > 60
[2018-05-08] MEDS: Lactobacillus Acidophilus 500 MU Cap PO SCH ×2 (09:04→18:05)
--- NOTE | 2018-05-08 19:29 | CP.PCM.PN ---
Subjective - Date & Time of Evaluation Date of Evaluation: 05/08/18 Time of Evaluation: 07:00 - Subjective Subjective: discussed on rounds iv rx in progress ok to d/c on INvanz Objective - Vital Signs/Intake and Output Vital Signs (last 24 hours): Temp Pulse Resp BP Pulse Ox 98.2 F 75 20 112/71 96 05/08/18 16:21 18 16:21 05/08/18 16:21 05/08/18 16:21 05/08/18 16:21 - Medications Medications: Current Medications Acetaminophen (Tylenol 325mg Tab) 650 mg PO Q6 PRN PRN Reason: Fever >100.4 F Last Admin: 05/07/18 15:41 Dose: 650 mg Heparin Sodium (Porcine) (Heparin) 5,000 units SC Q12 [facility] Last Admin: 05/08/18 09:04 Dose: 5,000 units Meropenem 1 gm/ Sodium (Chloride) 100 mls @ 100 mls/hr IVPB Q8H [facility] PRN Reason: Protocol Last Admin: 05/08/18 13:52 Dose: 100 mls/hr Ketorolac Tromethamine (Toradol) 30 mg IVP Q6 PRN PRN Reason: Pain, severe (8-10) Last Admin: 05/02/18 20:00 Dose: 30 mg Ketorolac Tromethamine (Toradol) 15 mg IVP Q6 PRN PRN Reason: Pain, moderate (4-7) Last Admin: 05/04/18 01:04 Dose: 15 mg Lactobacillus Acidophilus (Bacid Acidophilus) 1 cap PO BID [facility] Last Admin: 05/08/18 18:05 Dose: 1 cap Ondansetron HCl (Zofran Inj) 4 mg IVP Q6 PRN PRN Reason: Nausea/Vomiting Pantoprazole Sodium (Protonix Inj) 40 mg IVP DAILY [facility] Last Admin: 05/08/18 09:03 Dose: 40 mg Tamsulosin HCl (Flomax) 0.4 mg PO DAILY [facility] Last Admin: 05/08/18 09:04 Dose: 0.4 mg - Labs Labs: 05/08/18 07:38 05/08/18 07:38 PT 14.0 SECONDS (9.7-12.2) H 05/02/18 02:41 INR 1.3 05/02/18 02:41 APTT 37 SECONDS (21-34) H 05/02/18 02:41 - Constitutional Appears: Non-toxic, Chronically Ill - Head Exam Head Exam: NORMOCEPHALIC - Eye Exam Eye Exam: PERRL - ENT Exam ENT Exam: Mucous Membranes Dry - Neck Exam Neck Exam: Lymphadenopathy. absent: Thyromegaly - Respiratory Exam Respiratory Exam: absent: Decreased Breath Sounds - Cardiovascular Exam Cardiovascular Exam: REGULAR RHYTHM - GI/Abdominal Exam GI & Abdominal Exam: Distended, Soft - Rectal Exam Rectal Exam: Deferred - Exam Exam: NORMAL INSPECTION - Extremities Exam Extremities Exam: absent: Pedal Edema - Back Exam Back Exam: absent: CVA tenderness (L), CVA tenderness (R) Assessment and Plan (1) ESBL (extended spectrum beta-lactamase) producing bacteria infection Status: Acute (2) ESBL (extended spectrum beta-lactamase) producing bacteria infection Status: Acute (3) Fever Status: Acute (4) Renal colic on left side Status: Acute
[2018-05-09] MEDS: Meropenem 1 GM in Sodium Chloride 0.9% 100 ML IVPB SCH ×3 (05:45→22:14)
[2018-05-09 07:41] LABS: HEMOGLOBIN 11.7 g/dL (11.0-16.0); MEAN CELL VOLUME 82.8 fL (81.0-99.0); MEAN CORPUSCULAR HEMOGLOBIN 28.1 pg (27.0-31.0); RBC 4.17 Mil/uL (3.80-5.20); WHITE BLOOD COUNT 5.7 K/uL (4.8-10.8)
[2018-05-09 07:42] LABS: BASO # 0.1 K/uL (0.0-0.2); BASO % 1.1 % (0.0-2.0); EOS # 0.3 K/uL (0.0-0.7); EOS % 4.5 % (0.0-4.0); LYMPH % 35.5 % (20.0-40.0); MEAN PLATELET VOLUME 8.6 fL (7.2-11.7); MONO # 0.5 K/uL (0.0-0.8); MONO % 9.2 % (0.0-10.0); NEUT # 2.8 K/uL (1.8-7.0); NEUT % 49.7 % (50.0-75.0); RED CELL DISTRIBUTION WIDTH 14.1 % (11.5-14.5)
[2018-05-09 08:11] LABS: ALB/GLOB RATIO 1.2 (1.0-2.1); ALBUMIN 3.5 g/dL (3.5-5.0); ALT/SGPT 28 U/L (9-52); AST/SGOT 31 U/L (14-36); BLOOD UREA NITROGEN 10 mg/dL (7-17); CALCIUM 9.3 mg/dl (8.6-10.4); GFR NON-AFRICAN AMERICAN > 60
[2018-05-09] MEDS: Lactobacillus Acidophilus 500 MU Cap PO SCH ×2 (09:07→19:00)
--- NOTE | 2018-05-09 15:02 | CP.PCM.PN ---
Subjective - Date & Time of Evaluation Date of Evaluation: 05/09/18 Time of Evaluation: 09:20 - Subjective Subjective: Pt examined at bedside. Medical student translated. Pt reports she feels well. Pt reports occasional LLQ abd pain with urination. Patient denies headache, chest pain, SOB, abd pain, nausea, diarrhea. Objective - Vital Signs/Intake and Output Vital Signs (last 24 hours): Temp Pulse Resp BP Pulse Ox 97.6 F 62 20 119/78 96 05/09/18 07:57 05/09/18 07:57 05/09/18 07:57 05/09/18 07:57 05/09/18 07:57 - Medications Medications: Current Medications Acetaminophen (Tylenol 325mg Tab) 650 mg PO Q6 PRN PRN Reason: Fever >100.4 F Last Admin: 05/08/18 21:50 Dose: 650 mg Heparin Sodium (Porcine) (Heparin) 5,000 units SC Q12 [facility] Last Admin: 05/09/18 09:07 Dose: 5,000 units Meropenem 1 gm/ Sodium (Chloride) 100 mls @ 100 mls/hr IVPB Q8H [facility] PRN Reason: Protocol Last Admin: 05/09/18 14:31 Dose: 100 mls/hr Ketorolac Tromethamine (Toradol) 30 mg IVP Q6 PRN PRN Reason: Pain, severe (8-10) Last Admin: 05/02/18 20:00 Dose: 30 mg Ketorolac Tromethamine (Toradol) 15 mg IVP Q6 PRN PRN Reason: Pain, moderate (4-7) Last Admin: 05/04/18 01:04 Dose: 15 mg Lactobacillus Acidophilus (Bacid Acidophilus) 1 cap PO BID [facility] Last Admin: 05/09/18 09:07 Dose: 1 cap Ondansetron HCl (Zofran Inj) 4 mg IVP Q6 PRN PRN Reason: Nausea/Vomiting Pantoprazole Sodium (Protonix Inj) 40 mg IVP DAILY [facility] Last Admin: 05/09/18 09:07 Dose: 40 mg Tamsulosin HCl (Flomax) 0.4 mg PO DAILY [facility] Last Admin: 05/09/18 09:07 Dose: 0.4 mg - Labs Labs: 05/09/18 07:27 05/09/18 07:27 PT 14.0 SECONDS (9.7-12.2) H 05/02/18 02:41 INR 1.3 05/02/18 02:41 APTT 37 SECONDS (21-34) H 05/02/18 02:41 - Constitutional Appears: Non-toxic, No Acute Distress - Head Exam Head Exam: ATRAUMATIC, NORMAL INSPECTION, NORMOCEPHALIC - Eye Exam Eye Exam: EOMI, Normal appearance - ENT Exam ENT Exam: Mucous Membranes Moist, Normal Exam - Neck Exam Neck Exam: Normal Inspection - Respiratory Exam Respiratory Exam: Clear to Ausculation Bilateral, NORMAL BREATHING PATTERN. absent: Rhonchi, Wheezes - Cardiovascular Exam Cardiovascular Exam: REGULAR RHYTHM, +S1, +S2. absent: Tachycardia, Murmur - GI/Abdominal Exam GI & Abdominal Exam: Soft, Normal Bowel Sounds. absent: Distended, Tenderness - Extremities Exam Extremities Exam: Normal Capillary Refill, Normal Inspection. absent: Calf Tenderness, Pedal Edema, Tenderness - Back Exam Back Exam: NORMAL INSPECTION - Neurological Exam Neurological Exam: Alert, Awake, Oriented x3 - Psychiatric Exam Psychiatric exam: Normal Affect, Normal Mood - Skin Skin Exam: Dry, Intact, Normal Color, Warm Assessment and Plan - Assessment and Plan (Free Text) Assessment: ESBL UTI - Sensitive to Meropenem 1g IV Q8h, started 05/02. - Pt can complete 14 day tx w/ Invanz outpatient. - Contact precautions - 05/05 blood cultures negative x2, urine cx neg Nephrolithiasis - Renal ultrasound shows mild left perinephric fluid. Mild left hydronephrosis. Possible forniceal rupture due to more distal obstruction of the collecting system. 5 mm nonobstructing calculus noted in both the right and left kidney. - s/p cystoscopy with stent insertion(05/05) - Urology Dr. Noe consulted. Recommends outpt follow up Bandemia -resolved Electrolyte abnormality - Continue to monitor and replete Soft tissue density in left breast - Incidental finding on abd/pelvis CT - 1.7 cm soft tissue density noted - Outpatient follow up with mammogram Prophylaxis - DVT: SCDs, Heparin 5000U SC Q12 - GI: Protonix 40 mg IVP daily Dispo: Pending completion of antibiotic course and placement in outpatient transfusion center Per Mackenzie(case management), [place] order by Dr. Elizabeth x1 under observation, then able to continue transfusions outpatient.
--- NOTE | 2018-05-09 18:10 | CP.PCM.PN ---
Subjective - Date & Time of Evaluation Date of Evaluation: 05/09/18 Time of Evaluation: 09:00 - Subjective Subjective: awake alert nad Objective - Vital Signs/Intake and Output Vital Signs (last 24 hours): Temp Pulse Resp BP Pulse Ox 97.9 F 65 20 113/69 96 05/09/18 15:00 05/09/18 15:00 05/09/18 15:00 05/09/18 15:00 05/09/18 15:00 - Medications Medications: Current Medications Acetaminophen (Tylenol 325mg Tab) 650 mg PO Q6 PRN PRN Reason: Fever >100.4 F Last Admin: 05/08/18 21:50 Dose: 650 mg Heparin Sodium (Porcine) (Heparin) 5,000 units SC Q12 [facility] Last Admin: 05/09/18 09:07 Dose: 5,000 units Meropenem 1 gm/ Sodium (Chloride) 100 mls @ 100 mls/hr IVPB Q8H [facility] PRN Reason: Protocol Last Admin: 05/09/18 14:31 Dose: 100 mls/hr Ketorolac Tromethamine (Toradol) 30 mg IVP Q6 PRN PRN Reason: Pain, severe (8-10) Last Admin: 05/02/18 20:00 Dose: 30 mg Ketorolac Tromethamine (Toradol) 15 mg IVP Q6 PRN PRN Reason: Pain, moderate (4-7) Last Admin: 05/04/18 01:04 Dose: 15 mg Lactobacillus Acidophilus (Bacid Acidophilus) 1 cap PO BID [facility] Last Admin: 05/09/18 09:07 Dose: 1 cap Ondansetron HCl (Zofran Inj) 4 mg IVP Q6 PRN PRN Reason: Nausea/Vomiting Pantoprazole Sodium (Protonix Ec Tab) 40 mg PO DAILY [facility] Tamsulosin HCl (Flomax) 0.4 mg PO DAILY [facility] Last Admin: 05/09/18 09:07 Dose: 0.4 mg - Labs Labs: 05/09/18 07:27 05/09/18 07:27 PT 14.0 SECONDS (9.7-12.2) H 05/02/18 02:41 INR 1.3 05/02/18 02:41 APTT 37 SECONDS (21-34) H 05/02/18 02:41 - Constitutional Appears: Non-toxic, Chronically Ill - Head Exam Head Exam: NORMOCEPHALIC - Eye Exam Eye Exam: PERRL - ENT Exam ENT Exam: Normal External Ear Exam - Neck Exam Neck Exam: absent: Lymphadenopathy - Respiratory Exam Respiratory Exam: Decreased Breath Sounds - Cardiovascular Exam Cardiovascular Exam: REGULAR RHYTHM - GI/Abdominal Exam GI & Abdominal Exam: Distended, Soft Assessment and Plan (1) ESBL (extended spectrum beta-lactamase) producing bacteria infection Status: Acute (2) ESBL (extended spectrum beta-lactamase) producing bacteria infection Status: Acute (3) Fever Status: Acute (4) Renal colic on left side Status: Acute - Assessment and Plan (Free Text) Assessment: cont iv rx for 10 days post discharge with follow up
--- NOTE | 2018-05-10 03:11 | CP.PCM.PN ---
<Neena Ma L - Last Filed: 05/10/18 03:15> Subjective - Date & Time of Evaluation Date of Evaluation: 05/10/18 Time of Evaluation: 03:08 - Subjective Subjective: Resident Progress Note for Hospitalist Service Patient examined at bedside. No acute events overnight. She is still experiencing some pain in her left lower quadrant. She is eating and drinking well. States she is having normal bowel movements. Denies fever, chills, chest pain, shortness of breath, dysuria. Objective - Vital Signs/Intake and Output Vital Signs (last 24 hours): Temp Pulse Resp BP Pulse Ox 97.2 F L 68 20 130/78 99 05/10/18 00:00 05/10/18 00:00 05/10/18 00:00 05/10/18 00:00 05/10/18 00:00 - Medications Medications: Current Medications Acetaminophen (Tylenol 325mg Tab) 650 mg PO Q6 PRN PRN Reason: Fever >100.4 F Last Admin: 05/08/18 21:50 Dose: 650 mg Heparin Sodium (Porcine) (Heparin) 5,000 units SC Q12 [facility] Last Admin: 05/09/18 22:14 Dose: 5,000 units Meropenem 1 gm/ Sodium (Chloride) 100 mls @ 100 mls/hr IVPB Q8H [facility] PRN Reason: Protocol Last Admin: 05/09/18 22:14 Dose: 100 mls/hr Ketorolac Tromethamine (Toradol) 30 mg IVP Q6 PRN PRN Reason: Pain, severe (8-10) Last Admin: 05/02/18 20:00 Dose: 30 mg Ketorolac Tromethamine (Toradol) 15 mg IVP Q6 PRN PRN Reason: Pain, moderate (4-7) Last Admin: 05/04/18 01:04 Dose: 15 mg Lactobacillus Acidophilus (Bacid Acidophilus) 1 cap PO BID [facility] Last Admin: 05/09/18 19:00 Dose: 1 cap Ondansetron HCl (Zofran Inj) 4 mg IVP Q6 PRN PRN Reason: Nausea/Vomiting Pantoprazole Sodium (Protonix Ec Tab) 40 mg PO DAILY [facility] Tamsulosin HCl (Flomax) 0.4 mg PO DAILY [facility] Last Admin: 05/09/18 09:07 Dose: 0.4 mg - Labs Labs: 05/09/18 07:27 05/09/18 07:27 PT 14.0 SECONDS (9.7-12.2) H 05/02/18 02:41 INR 1.3 05/02/18 02:41 APTT 37 SECONDS (21-34) H 05/02/18 02:41 - Additional Findings Additional findings: - Constitutional Appears: Non-toxic - Head Exam Head Exam: ATRAUMATIC, NORMAL INSPECTION - Eye Exam Eye Exam: EOMI - ENT Exam ENT Exam: Mucous Membranes Moist - Neck Exam Neck Exam: Full ROM - Respiratory Exam Respiratory Exam: NORMAL BREATHING PATTERN, Clear to Auscultation Bilaterally - Cardiovascular Exam Cardiovascular Exam: Regular Rhythm, +S1, +S2 - GI/Abdominal Exam GI & Abdominal Exam: Soft, Tenderness (LLQ), Normal Bowel Sounds. absent: Rigid - Extremities Exam Extremities Exam: Full ROM. absent: Calf Tenderness, Pedal Edema - Back Exam Back Exam: Normal. absent: CVA tenderness - Neurological Exam Neurological Exam: Alert, Awake, Oriented x3 - Psychiatric Exam Psychiatric exam: Normal Affect, Normal Mood - Skin Skin Exam: Dry, Intact, Warm Assessment and Plan - Assessment and Plan (Free Text) Plan: ESBL Urinary Tract Infection - Sensitive to Merrem 1g IV Q8h, started 05/02 - Contact precautions - 05/05 blood cultures negative x2 - 05/05 urine culture no growth Bandemia- resolved - Febrile, tachycardic at admission - Leukocytosis as well as bands of 18 noted on 05/03 - Likely secondary to obstructing left distal ureteric calculus with hydronephrosis - Abdomen/Pelvis CT: mild left hydronephrosis and hydroureter secondary to 3mm stone in left ureterovesical junction - Procalcitonin at admission 80.21. Repeat level 5.54 - On Merrem 1g IV Q8h, started 05/02 - Probiotics Lactobacillus Acidophilus 1 cap PO BID - Tamsulosin 0.4 mg PO daily - Zofran 4mg IV Q6h prn - Toradol 15 mg IVP Q6 PRN for moderate pain, Toradol 30 mg IVP Q6 PRN for severe pain - 05/02 U/C and B/C prelim findings positive for Gram negative rods. ESBL+ noted. Will need 10-14 day antibiotic course of therapy. Anticipated abx course end May 16. Repeat cultures 05/05 negative x2. - Picc line placed Nephrolithiasis - Renal ultrasound shows mild left perinephric fluid. Mild left hydronephrosis. Possible forniceal rupture due to more distal obstruction of the collecting system. 5 mm nonobstructing calculus noted in both the right and left kidney. - s/p cystoscopy with stent insertion - Strain urine for calculus. Followup. - Urology Dr. Noe consulted Electrolyte abnormality - Continue to monitor and replete Soft tissue density in left breast - Incidental finding on abd/pelvis CT - 1.7 cm soft tissue density noted - Outpatient followup with mammogram Prophylaxis - DVT: SCDs, Heparin 5000U SC Q12 - GI: Protonix 40 mg IVP daily Dispo: Pending completion of antibiotic course. Patient to continue IV antibiotics for 10 days post discharge. Neena Ma PGY-1 <Paloma Tovar V - Last Filed: 05/10/18 10:51> Objective - Vital Signs/Intake and Output Vital Signs (last 24 hours): Temp Pulse Resp BP Pulse Ox 97.5 F L 57 L 20 125/77 97 05/10/18 07:56 05/10/18 07:56 05/10/18 07:56 05/10/18 07:56 05/10/18 07:56 - Medications Medications: Current Medications Acetaminophen (Tylenol 325mg Tab) 650 mg PO Q6 PRN PRN Reason: Fever >100.4 F Last Admin: 05/08/18 21:50 Dose: 650 mg Heparin Sodium (Porcine) (Heparin) 5,000 units SC Q12 [facility] Last Admin: 05/10/18 09:56 Dose: 5,000 units Meropenem 1 gm/ Sodium (Chloride) 100 mls @ 100 mls/hr IVPB Q8H [facility] PRN Reason: Protocol Last Admin: 05/10/18 05:35 Dose: 100 mls/hr Ketorolac Tromethamine (Toradol) 30 mg IVP Q6 PRN PRN Reason: Pain, severe (8-10) Last Admin: 05/02/18 20:00 Dose: 30 mg Ketorolac Tromethamine (Toradol) 15 mg IVP Q6 PRN PRN Reason: Pain, moderate (4-7) Last Admin: 05/04/18 01:04 Dose: 15 mg Lactobacillus Acidophilus (Bacid Acidophilus) 1 cap PO BID [facility] Last Admin: 05/10/18 09:57 Dose: 1 cap Ondansetron HCl (Zofran Inj) 4 mg IVP Q6 PRN PRN Reason: Nausea/Vomiting Pantoprazole Sodium (Protonix Ec Tab) 40 mg PO DAILY [facility] Last Admin: 05/10/18 09:56 Dose: 40 mg Tamsulosin HCl (Flomax) 0.4 mg PO DAILY [facility] Last Admin: 05/10/18 09:57 Dose: 0.4 mg - Labs Labs: 05/10/18 07:04 05/10/18 07:04 PT 14.0 SECONDS (9.7-12.2) H 05/02/18 02:41 INR 1.3 05/02/18 02:41 APTT 37 SECONDS (21-34) H 05/02/18 02:41 Attending/Attestation - Attestation I have personally seen and examined this patient.: Yes I have fully participated in the care of the patient.: Yes I have reviewed all pertinent clinical information, including history, physical exam and plan: Yes Notes (Text): Patient seen, examined, and case discussed with day-time resident. Patient seen at bedside. with Fish Housekeeper [id number] Donald Johnson. Patient reporting pain over left flank and suprapubic tenderness is improving. Patient reports stools are soft not watery. Patient denies any acute complaints. We are attempting to setup up patient for the outpatient transfusion center. I have spoke with the covering case briefer that the script from infectious disease in the chart, which states INvanz 1gram IV q daily for 10 days with weekly labs (CBC, CMP). Order for procalcitonin Assessment/Plan 1) Sepsis ESBL+ UTI EBSL+ Bacteremia Assessment/Plan * Criteria: 102.7F, leukopenic, source of infection: bacteremia, urinary tract infection * Lactic acid: 2.0--> 0.7 * Infectious Disease (Dr. Elizabeth) relations coordinator--help appreciated * Needs IV Merrem then Invanz for total 14 days- if pyuria persists may need longer course with oral suppresive agent such as Macrobid * Meropenem 1 gram IVPB Q8H (active since 05/02/18) * Script from [facility]: [id number] 1 gram IV q daily for ten days with CBC/CMP; to setup for outpatient transfusion center * Urology (Dr. Noe) on case help appreciated * f/u outpatient for stent removal * Blood culture (05/02/18): E. Coli +ESBL X2 * Blood culture (05/05/18): no growth after 5 days X2 * Urine culture (05/02/18): E. Coli * Urine culture (05/05/18): no growth * Contact isolation * PICC line placed for intermediate school teacher IV abx * Florastor 250mg PO BID * Procalcitonin: 80.21--->5.54--->pending * Tylenol 650mg PO Q6H PRN 2) Nephrolithiasis Left Hydroureteronephrosis Assessment/Plan * Urology (Dr. Noe) on case help appreciated * CT Abdomen/pelvis (05/02/18): mild left hydroureteronephrosis secondary to an obstructing 3 mm calculus in the left uretovesciular junction. moderate inflammatory left perinephric fat stranding. delayed left sided nephrogram in comparison to the right. bilateral renal collecting system calcificiations/ calculi. * Renal US (05/02/18): mild left perinephric fluid. Mild left hydronephrosis. Possible forniceal rupture due to more distal obstruction of the collecting system. 5 mm nonobstructing calculus noted in the both right and left kidney * s/p cystogram and stent placement (05/02/18): official op note pending * Flomax 0.4mg PO daily 3) Soft tissue density in left breast Assessment/Plan * Recommended for outpatient breast US and mammogram for further investigation in abnormality noted on CT scan. 4) Electrolyte abnormalities Assessment/Plan * monitor and replete 5) Prophylaxis * DVT PPx:: SCDs, Heparin 5000U SC Q12 * GI: Protonix 40 mg IVP zoie Disposition: Infectious Disease recommended for cont iv rx for 10 days post discharge with follow up . Awaiting arrangement for outpatient transfusion center by case management. To determine when to give first dose of Invanz either Saturday or Saturday prior to discharge.
[2018-05-10] MEDS: Meropenem 1 GM in Sodium Chloride 0.9% 100 ML IVPB SCH ×3 (05:35→22:33)
[2018-05-10 07:09] LABS: BASO % 0.4 % (0.0-2.0); EOS # 0.1 K/uL (0.0-0.7); EOS % 2.1 % (0.0-4.0); HEMOGLOBIN 11.9 g/dL (11.0-16.0); LYMPH % 32.5 % (20.0-40.0); MEAN CELL VOLUME 82.6 fL (81.0-99.0); MEAN CORPUSCULAR HEMOGLOBIN 27.3 pg (27.0-31.0); MEAN PLATELET VOLUME 8.3 fL (7.2-11.7); MONO # 0.5 K/uL (0.0-0.8); MONO % 8.6 % (0.0-10.0); NEUT # 3.5 K/uL (1.8-7.0); NEUT % 56.4 % (50.0-75.0); NRBC % 0.1 % (0.0-2.0); RBC 4.37 Mil/uL (3.80-5.20); RED CELL DISTRIBUTION WIDTH 14.2 % (11.5-14.5); WHITE BLOOD COUNT 6.2 K/uL (4.8-10.8)
[2018-05-10 07:49] LABS: ALB/GLOB RATIO 1.4 (1.0-2.1); ALBUMIN 3.6 g/dL (3.5-5.0); ALT/SGPT 39 U/L (9-52); AST/SGOT 23 U/L (14-36); BLOOD UREA NITROGEN 15 mg/dL (7-17); CALCIUM 9.2 mg/dl (8.6-10.4); GFR NON-AFRICAN AMERICAN > 60
[2018-05-10] MEDS: Pantoprazole 40 mg EC Tab PO SCH (09:56)
[2018-05-10] MEDS: Lactobacillus Acidophilus 500 MU Cap PO SCH ×2 (09:57→18:01)
--- NOTE | 2018-05-11 01:14 | CP.PCM.PN ---
Addendum entered and electronically signed by Neena Ma DO 05/11/18 07:35: History was obtained with the assistance of consultant [employer]. vice president [employer] (ex ) Sondra Ferro #[id number] Original Note: <Neena Ma - Last Filed: 05/11/18 01:14> Subjective - Date & Time of Evaluation Date of Evaluation: 05/11/18 Time of Evaluation: 01:07 - Subjective Subjective: Resident Note for Hospitalist Service Patient examined at bedside. She is resting comfortably in bed. States that she is continuing to improve in condition and that her pain is almost completely resolved. She is eating and drinking well. She has not strained any ureteral calculi. Denies headache, dizziness, chest pain, shortness of breath, abdominal pain, dysuria. She requests to be discharged tomorrow night. Objective - Vital Signs/Intake and Output Vital Signs (last 24 hours): Temp Pulse Resp BP Pulse Ox 98.2 F 63 20 113/76 96 05/11/18 00:00 05/11/18 00:00 05/11/18 00:00 05/11/18 00:00 05/11/18 00:00 - Medications Medications: Current Medications Acetaminophen (Tylenol 325mg Tab) 650 mg PO Q6 PRN PRN Reason: Fever >100.4 F Last Admin: 05/08/18 21:50 Dose: 650 mg Heparin Sodium (Porcine) (Heparin) 5,000 units SC Q12 [facility] Last Admin: 05/10/18 22:33 Dose: 5,000 units Meropenem 1 gm/ Sodium (Chloride) 100 mls @ 100 mls/hr IVPB Q8H [facility] PRN Reason: Protocol Last Admin: 05/10/18 22:33 Dose: 100 mls/hr Ketorolac Tromethamine (Toradol) 30 mg IVP Q6 PRN PRN Reason: Pain, severe (8-10) Last Admin: 05/02/18 20:00 Dose: 30 mg Ketorolac Tromethamine (Toradol) 15 mg IVP Q6 PRN PRN Reason: Pain, moderate (4-7) Last Admin: 05/04/18 01:04 Dose: 15 mg Lactobacillus Acidophilus (Bacid Acidophilus) 1 cap PO BID [facility] Last Admin: 05/10/18 18:01 Dose: 1 cap Ondansetron HCl (Zofran Inj) 4 mg IVP Q6 PRN PRN Reason: Nausea/Vomiting Pantoprazole Sodium (Protonix Ec Tab) 40 mg PO DAILY [facility] Last Admin: 05/10/18 09:56 Dose: 40 mg Tamsulosin HCl (Flomax) 0.4 mg PO DAILY [facility] Last Admin: 05/10/18 09:57 Dose: 0.4 mg - Labs Labs: 05/10/18 07:04 05/10/18 07:04 PT 14.0 SECONDS (9.7-12.2) H 05/02/18 02:41 INR 1.3 05/02/18 02:41 APTT 37 SECONDS (21-34) H 05/02/18 02:41 - Additional Findings Additional findings: - Constitutional Appears: Non-toxic - Head Exam Head Exam: ATRAUMATIC, NORMAL INSPECTION - Eye Exam Eye Exam: EOMI - ENT Exam ENT Exam: Mucous Membranes Moist - Neck Exam Neck Exam: Full ROM - Respiratory Exam Respiratory Exam: NORMAL BREATHING PATTERN, Clear to Auscultation Bilaterally - Cardiovascular Exam Cardiovascular Exam: Regular Rhythm, +S1, +S2 - GI/Abdominal Exam GI & Abdominal Exam: Soft, Normal Bowel Sounds. absent: Rigid, Tenderness - Extremities Exam Extremities Exam: Full ROM. absent: Calf Tenderness, Pedal Edema - Back Exam Back Exam: Normal. absent: CVA tenderness - Neurological Exam Neurological Exam: Alert, Awake, Oriented x3 - Psychiatric Exam Psychiatric exam: Normal Affect, Normal Mood - Skin Skin Exam: Dry, Intact, Warm Assessment and Plan - Assessment and Plan (Free Text) Plan: ESBL Urinary Tract Infection - Sensitive to Merrem 1g IV Q8h, started 05/02 - Contact precautions - 05/05 blood cultures negative x2 - 05/05 urine culture no growth - 05/10 procal 0.16 Bandemia- resolved - Febrile, tachycardic at admission - Leukocytosis as well as bands of 18 noted on 05/03 - Likely secondary to obstructing left distal ureteric calculus with hydronephrosis - Abdomen/Pelvis CT: mild left hydronephrosis and hydroureter secondary to 3mm stone in left ureterovesical junction - Procalcitonin at admission 80.21. Repeat level 5.54 - On Merrem 1g IV Q8h, started 05/02 - Probiotics Lactobacillus Acidophilus 1 cap PO BID - Tamsulosin 0.4 mg PO daily - Zofran 4mg IV Q6h prn - Toradol 15 mg IVP Q6 PRN for moderate pain, Toradol 30 mg IVP Q6 PRN for severe pain - 8/10 U/C and B/C prelim findings positive for Gram negative rods. ESBL+ noted. Will need 10-14 day antibiotic course of therapy. Anticipated abx course end May 16. Repeat cultures 05/05 negative x2. - Picc line placed Nephrolithiasis - Renal ultrasound shows mild left perinephric fluid. Mild left hydronephrosis. Possible forniceal rupture due to more distal obstruction of the collecting system. 5 mm nonobstructing calculus noted in both the right and left kidney. - s/p cystoscopy with stent insertion - Strain urine for calculus. Followup. - Urology Dr. Noe consulted Electrolyte abnormality - Continue to monitor and replete Soft tissue density in left breast - Incidental finding on abd/pelvis CT - 1.7 cm soft tissue density noted - Outpatient followup with mammogram Prophylaxis - DVT: SCDs, Heparin 5000U SC Q12 - GI: Protonix 40 mg IVP daily Dispo: Pending completion of antibiotic course. Patient to continue IV antibiotics for 10 days post discharge. Neena Ma PGY-1 <Paloma Tovar V - Last Filed: 05/11/18 11:27> Objective - Vital Signs/Intake and Output Vital Signs (last 24 hours): Temp Pulse Resp BP Pulse Ox 97.6 F 63 20 100/65 97 05/11/18 07:36 05/11/18 07:36 05/11/18 07:36 05/11/18 07:36 05/11/18 07:36 - Medications Medications: Current Medications Acetaminophen (Tylenol 325mg Tab) 650 mg PO Q6 PRN PRN Reason: Fever >100.4 F Last Admin: 05/08/18 21:50 Dose: 650 mg Heparin Sodium (Porcine) (Heparin) 5,000 units SC Q12 [facility] Last Admin: 05/11/18 10:14 Dose: 5,000 units Meropenem 1 gm/ Sodium (Chloride) 100 mls @ 100 mls/hr IVPB Q8H [facility] PRN Reason: Protocol Last Admin: 05/11/18 06:23 Dose: 100 mls/hr Ketorolac Tromethamine (Toradol) 30 mg IVP Q6 PRN PRN Reason: Pain, severe (8-10) Last Admin: 05/02/18 20:00 Dose: 30 mg Ketorolac Tromethamine (Toradol) 15 mg IVP Q6 PRN PRN Reason: Pain, moderate (4-7) Last Admin: 05/04/18 01:04 Dose: 15 mg Lactobacillus Acidophilus (Bacid Acidophilus) 1 cap PO BID [facility] Last Admin: 05/11/18 10:14 Dose: 1 cap Ondansetron HCl (Zofran Inj) 4 mg IVP Q6 PRN PRN Reason: Nausea/Vomiting Pantoprazole Sodium (Protonix Ec Tab) 40 mg PO DAILY [facility] Last Admin: 05/11/18 10:14 Dose: 40 mg Tamsulosin HCl (Flomax) 0.4 mg PO DAILY [facility] Last Admin: 05/11/18 10:14 Dose: 0.4 mg - Labs Labs: 05/11/18 09:09 05/11/18 09:09 PT 14.0 SECONDS (9.7-12.2) H 05/02/18 02:41 INR 1.3 05/02/18 02:41 APTT 37 SECONDS (21-34) H 05/02/18 02:41 Attending/Attestation - Attestation I have personally seen and examined this patient.: Yes I have fully participated in the care of the patient.: Yes I have reviewed all pertinent clinical information, including history, physical exam and plan: Yes Notes (Text): Intranslator Guyyeison Kat Y: [id number] Patient seen, examined and case discussed with biomedical equipment support specialist. Patient's left flank pain has resolved. Patient LLQ and suprapubic tenderness has improved. Procalcitonin has almost normalized. We are awaiting arrangements with case and social in regards to setting up patient for Invanz at the outpatient transfusion center. Script from ID was given to covering showcase trimmer yesterday. Copy of the script is in the chart. We are hoping to discharge her tomorrow evening after she has received her first dose of Invanz in the hospital and that she has an appointment with transfusion center for Saturday. Assessment/Plan 1) Sepsis ESBL+ UTI EBSL+ Bacteremia Assessment/Plan * Criteria: 102.7F, leukopenic, source of infection: bacteremia, urinary tract infection * Lactic acid: 2.0--> 0.7 * Infectious Disease (Dr. Elizabeth) wildlife policy professional--help appreciated * Needs IV Merrem then Invanz for total 14 days- if pyuria persists may need longer course with oral suppresive agent such as Macrobid * Meropenem 1 gram IVPB Q8H (active since 05/02/18) * Script from [facility]: [id number] 1 gram IV q daily for ten days with CBC/CMP; to setup for outpatient transfusion center * Urology (Dr. Noe) on case help appreciated * f/u outpatient for stent removal * Blood culture (05/02/18): E. Coli +ESBL X2 * Blood culture (05/05/18): no growth after 5 days X2 * Urine culture (05/02/18): E. Coli * Urine culture (05/05/18): no growth * Contact isolation * PICC line placed for terminal worker IV abx * Florastor 250mg PO BID * Procalcitonin: 80.21--->5.54--->0.16 * Tylenol 650mg PO Q6H PRN 2) Nephrolithiasis Left Hydroureteronephrosis Assessment/Plan * Urology (Dr. Noe) on case help appreciated * CT Abdomen/pelvis (05/02/18): mild left hydroureteronephrosis secondary to an obstructing 3 mm calculus in the left uretovesciular junction. moderate inflammatory left perinephric fat stranding. delayed left sided nephrogram in comparison to the right. bilateral renal collecting system calcificiations/ calculi. * Renal US (05/02/18): mild left perinephric fluid. Mild left hydronephrosis. Possible forniceal rupture due to more distal obstruction of the collecting system. 5 mm nonobstructing calculus noted in the both right and left kidney * s/p cystogram and stent placement (05/02/18): official op note pending * Flomax 0.4mg PO daily 3) Soft tissue density in left breast Assessment/Plan * Recommended for outpatient breast US and mammogram for further investigation in abnormality noted on CT scan. 4) Electrolyte abnormalities Assessment/Plan * monitor and replete 5) Prophylaxis * DVT PPx:: SCDs, Heparin 5000U SC Q12 * GI: Protonix 40 mg IVP zoie Disposition: Infectious Disease recommended for cont iv rx for 10 days post discharge with follow up . Awaiting arrangement for outpatient transfusion center by case management. To determine when to give first dose of Invanz likely Saturday with the established transfusion center appointment for follow-up.
[2018-05-11] MEDS: Meropenem 1 GM in Sodium Chloride 0.9% 100 ML IVPB SCH ×3 (06:23→21:52)
[2018-05-11 09:23] LABS: BASO % 0.6 % (0.0-2.0); EOS # 0.1 K/uL (0.0-0.7); EOS % 0.9 % (0.0-4.0); HEMOGLOBIN 13.6 g/dL (11.0-16.0); LYMPH # 2.2 K/uL (1.0-4.3); MEAN CELL VOLUME 82.3 fL (81.0-99.0); MEAN CORPUSCULAR HEMOGLOBIN 28.3 pg (27.0-31.0); MEAN CORPUSCULAR HGB CONC 34.4 g/dL (33.0-37.0); MEAN PLATELET VOLUME 8.4 fL (7.2-11.7); MONO # 0.5 K/uL (0.0-0.8); MONO % 6.6 % (0.0-10.0); NEUT # 4.5 K/uL (1.8-7.0); NEUT % 61.9 % (50.0-75.0); RBC 4.8 Mil/uL (3.80-5.20); RED CELL DISTRIBUTION WIDTH 13.9 % (11.5-14.5); WHITE BLOOD COUNT 7.2 K/uL (4.8-10.8)
[2018-05-11 09:43] LABS: ALB/GLOB RATIO 1.4 (1.0-2.1); ALBUMIN 4.4 g/dL (3.5-5.0); ALT/SGPT 28 U/L (9-52); AST/SGOT 19 U/L (14-36); BLOOD UREA NITROGEN 20 mg/dL (7-17); CALCIUM 9.9 mg/dl (8.6-10.4); GFR NON-AFRICAN AMERICAN > 60
[2018-05-11] MEDS: Pantoprazole 40 mg EC Tab PO SCH (10:14)
[2018-05-11] MEDS: Lactobacillus Acidophilus 500 MU Cap PO SCH ×2 (10:14→17:06)
--- NOTE | 2018-05-11 15:07 | CP.PCM.PN ---
Subjective - Date & Time of Evaluation Date of Evaluation: 05/11/18 Time of Evaluation: 08:00 - Subjective Subjective: improving less pain justice fever Objective - Vital Signs/Intake and Output Vital Signs (last 24 hours): Temp Pulse Resp BP Pulse Ox 97.6 F 63 20 100/65 97 05/11/18 07:36 05/11/18 07:36 05/11/18 07:36 05/11/18 07:36 05/11/18 07:36 Intake and Output: 05/11/18 05/11/18 06:59 18:59 Intake Total 600 Balance 600 - Medications Medications: Current Medications Acetaminophen (Tylenol 325mg Tab) 650 mg PO Q6 PRN PRN Reason: Fever >100.4 F Last Admin: 05/08/18 21:50 Dose: 650 mg Heparin Sodium (Porcine) (Heparin) 5,000 units SC Q12 [facility] Last Admin: 05/11/18 10:14 Dose: 5,000 units Meropenem 1 gm/ Sodium (Chloride) 100 mls @ 100 mls/hr IVPB Q8H [facility] PRN Reason: Protocol Last Admin: 05/11/18 13:31 Dose: 100 mls/hr Ketorolac Tromethamine (Toradol) 30 mg IVP Q6 PRN PRN Reason: Pain, severe (8-10) Last Admin: 05/02/18 20:00 Dose: 30 mg Ketorolac Tromethamine (Toradol) 15 mg IVP Q6 PRN PRN Reason: Pain, moderate (4-7) Last Admin: 05/04/18 01:04 Dose: 15 mg Lactobacillus Acidophilus (Bacid Acidophilus) 1 cap PO BID [facility] Last Admin: 05/11/18 10:14 Dose: 1 cap Ondansetron HCl (Zofran Inj) 4 mg IVP Q6 PRN PRN Reason: Nausea/Vomiting Pantoprazole Sodium (Protonix Ec Tab) 40 mg PO DAILY [facility] Last Admin: 05/11/18 10:14 Dose: 40 mg Tamsulosin HCl (Flomax) 0.4 mg PO DAILY [facility] Last Admin: 05/11/18 10:14 Dose: 0.4 mg - Labs Labs: 05/11/18 09:09 05/11/18 09:09 PT 14.0 SECONDS (9.7-12.2) H 05/02/18 02:41 INR 1.3 05/02/18 02:41 APTT 37 SECONDS (21-34) H 05/02/18 02:41 - Constitutional Appears: Non-toxic, Chronically Ill - Head Exam Head Exam: NORMOCEPHALIC - Eye Exam Eye Exam: PERRL - ENT Exam ENT Exam: Mucous Membranes Dry - Neck Exam Neck Exam: absent: Lymphadenopathy - Respiratory Exam Respiratory Exam: Decreased Breath Sounds - Cardiovascular Exam Cardiovascular Exam: REGULAR RHYTHM - GI/Abdominal Exam GI & Abdominal Exam: Distended Assessment and Plan (1) ESBL (extended spectrum beta-lactamase) producing bacteria infection Status: Acute (2) ESBL (extended spectrum beta-lactamase) producing bacteria infection Status: Acute (3) Fever Status: Acute (4) Renal colic on left side Status: Acute
[2018-05-12] MEDS: Meropenem 1 GM in Sodium Chloride 0.9% 100 ML IVPB SCH (05:33)
[2018-05-12 07:30] LABS: BASO % 0.7 % (0.0-2.0); EOS # 0.1 K/uL (0.0-0.7); EOS % 1.3 % (0.0-4.0); HEMOGLOBIN 12.7 g/dL (11.0-16.0); LYMPH # 2.2 K/uL (1.0-4.3); LYMPH % 32.4 % (20.0-40.0); MEAN CELL VOLUME 83.2 fL (81.0-99.0); MEAN CORPUSCULAR HEMOGLOBIN 28.5 pg (27.0-31.0); MEAN CORPUSCULAR HGB CONC 34.3 g/dL (33.0-37.0); MEAN PLATELET VOLUME 8.5 fL (7.2-11.7); MONO # 0.6 K/uL (0.0-0.8); MONO % 8.5 % (0.0-10.0); NEUT # 3.9 K/uL (1.8-7.0); NEUT % 57.1 % (50.0-75.0); NRBC % 0.3 % (0.0-2.0); RBC 4.44 Mil/uL (3.80-5.20); RED CELL DISTRIBUTION WIDTH 14.1 % (11.5-14.5); WHITE BLOOD COUNT 6.8 K/uL (4.8-10.8)
[2018-05-12 08:03] LABS: ALB/GLOB RATIO 1.3 (1.0-2.1); ALBUMIN 4.1 g/dL (3.5-5.0); ALT/SGPT 34 U/L (9-52); AST/SGOT 24 U/L (14-36); BLOOD UREA NITROGEN 20 mg/dL (7-17); CALCIUM 9.4 mg/dl (8.6-10.4); GFR NON-AFRICAN AMERICAN > 60
[2018-05-12] MEDS: Pantoprazole 40 mg EC Tab PO SCH (09:49)
[2018-05-12] MEDS: Lactobacillus Acidophilus 500 MU Cap PO SCH (09:49)
--- NOTE | 2018-05-12 11:50 | CP.PCM.PN ---
Subjective - Date & Time of Evaluation Date of Evaluation: 05/12/18 Time of Evaluation: 11:48 - Subjective Subjective: Resident Progress Note for Hospitalist Service Patient examined at bedside. No acute events overnight. States that she is feeling well and would like to be discharged as soon as possible. States that her abdominal pain and back pain has resolved. Denies fevers, chills, chest pain , shortness of breath, dysuria. Information was obtained with assistance of director of rooms Joanna Ferro #[id number] Objective - Vital Signs/Intake and Output Vital Signs (last 24 hours): Temp Pulse Resp BP Pulse Ox 97.6 F 75 20 109/76 96 05/12/18 07:06 05/12/18 07:06 05/12/18 07:06 05/12/18 07:06 05/12/18 07:06 - Medications Medications: Current Medications Acetaminophen (Tylenol 325mg Tab) 650 mg PO Q6 PRN PRN Reason: Fever >100.4 F Last Admin: 05/08/18 21:50 Dose: 650 mg Heparin Sodium (Porcine) (Heparin) 5,000 units SC Q12 [facility] Last Admin: 05/12/18 09:48 Dose: 5,000 units Meropenem 1 gm/ Sodium (Chloride) 100 mls @ 100 mls/hr IVPB Q8H KIRA PRN Reason: Protocol Last Admin: 05/12/18 05:33 Dose: 100 mls/hr Ketorolac Tromethamine (Toradol) 30 mg IVP Q6 PRN PRN Reason: Pain, severe (8-10) Last Admin: 05/02/18 20:00 Dose: 30 mg Ketorolac Tromethamine (Toradol) 15 mg IVP Q6 PRN PRN Reason: Pain, moderate (4-7) Last Admin: 05/04/18 01:04 Dose: 15 mg Lactobacillus Acidophilus (Bacid Acidophilus) 1 cap PO BID [facility] Last Admin: 05/12/18 09:49 Dose: 1 cap Ondansetron HCl (Zofran Inj) 4 mg IVP Q6 PRN PRN Reason: Nausea/Vomiting Pantoprazole Sodium (Protonix Ec Tab) 40 mg PO DAILY [facility] Last Admin: 05/12/18 09:49 Dose: 40 mg Tamsulosin HCl (Flomax) 0.4 mg PO DAILY [facility] Last Admin: 05/12/18 09:49 Dose: 0.4 mg - Labs Labs: 05/12/18 07:09 05/12/18 07:09 PT 14.0 SECONDS (9.7-12.2) H 05/02/18 02:41 INR 1.3 05/02/18 02:41 APTT 37 SECONDS (21-34) H 05/02/18 02:41 - Additional Findings Additional findings: - Constitutional Appears: Non-toxic - Head Exam Head Exam: ATRAUMATIC, NORMAL INSPECTION - Eye Exam Eye Exam: EOMI - ENT Exam ENT Exam: Mucous Membranes Moist - Neck Exam Neck Exam: Full ROM - Respiratory Exam Respiratory Exam: NORMAL BREATHING PATTERN, Clear to Auscultation Bilaterally - Cardiovascular Exam Cardiovascular Exam: Regular Rhythm, +S1, +S2 - GI/Abdominal Exam GI & Abdominal Exam: Soft, Normal Bowel Sounds. absent: Rigid, Tenderness - Extremities Exam Extremities Exam: Full ROM. absent: Calf Tenderness, Pedal Edema - Back Exam Back Exam: Normal. absent: CVA tenderness - Neurological Exam Neurological Exam: Alert, Awake, Oriented x3 - Psychiatric Exam Psychiatric exam: Normal Affect, Normal Mood - Skin Skin Exam: Dry, Intact, Warm Assessment and Plan - Assessment and Plan (Free Text) Plan: ESBL Urinary Tract Infection - Sensitive to Merrem 1g IV Q8h, started 05/02 - Contact precautions - 05/05 blood cultures negative x2 - 05/05 urine culture no growth - 05/10 procal 0.16 Bandemia- resolved - Febrile, tachycardic at admission - Leukocytosis as well as bands of 18 noted on 05/03 - Likely secondary to obstructing left distal ureteric calculus with hydronephrosis - Abdomen/Pelvis CT: mild left hydronephrosis and hydroureter secondary to 3mm stone in left ureterovesical junction - Procalcitonin at admission 80.21. Repeat level 5.54 - On Merrem 1g IV Q8h, started 05/02 - Probiotics Lactobacillus Acidophilus 1 cap PO BID - Tamsulosin 0.4 mg PO daily - Zofran 4mg IV Q6h prn - Toradol 15 mg IVP Q6 PRN for moderate pain, Toradol 30 mg IVP Q6 PRN for severe pain - 05/02 U/C and B/C prelim findings positive for Gram negative rods. ESBL+ noted. Will need 10-14 day antibiotic course of therapy. Anticipated abx course end May 16. Repeat cultures 05/05 negative x2. - Picc line placed Nephrolithiasis - Renal ultrasound shows mild left perinephric fluid. Mild left hydronephrosis. Possible forniceal rupture due to more distal obstruction of the collecting system. 5 mm nonobstructing calculus noted in both the right and left kidney. - s/p cystoscopy with stent insertion - Strain urine for calculus. Followup. - Urology Dr. Noe consulted Electrolyte abnormality - Continue to monitor and replete Soft tissue density in left breast - Incidental finding on abd/pelvis CT - 1.7 cm soft tissue density noted - Outpatient followup with mammogram Prophylaxis - DVT: SCDs, Heparin 5000U SC Q12 - GI: Protonix 40 mg IVP daily Dispo: Pending completion of antibiotic course. Patient to continue IV antibiotics for 10 days post discharge. Neena Ma PGY-1
[2018-05-12] MEDS ORDERED: Ertapenem 1gm in NS 50ml 1 GM in Sodium Chloride 0.9% 50 ML IV ONE (14:00)
--- NOTE | 2018-05-12 15:37 | CP.PCM.DIS ---
<Neena Ma L - Last Filed: 05/12/18 18:11> Provider - Provider Date of Admission: 05/04/18 13:07 Attending physician: Paloma Tovar DO Consults: Dr. Clara Noe Time Spent in preparation of Discharge (in minutes): 45 Diagnosis - Discharge Diagnosis (1) ESBL (extended spectrum beta-lactamase) producing bacteria infection Status: Resolved (2) Fever Status: Resolved Hospital Course - Lab Results Lab Results: Micro Results 05/05/18 10:57 Blood-Venous Blood Culture - Final NO GROWTH AFTER 5 DAYS 05/05/18 10:57 Blood-Venous Gram Stain - Final TEST NOT PERFORMED 05/05/18 07:18 Blood-Venous Blood Culture - Final NO GROWTH AFTER 5 DAYS 05/05/18 07:18 Blood-Venous Gram Stain - Final TEST NOT PERFORMED 05/05/18 07:20 Urine,Clean Catch Urine Culture - Final No Growth (<1,000 CFU/ML) 05/02/18 02:30 Blood Blood Culture - Final Escherichia Coli 05/02/18 02:30 Blood Gram Stain - Final 05/02/18 02:00 Blood Blood Culture - Final Escherichia Coli 05/02/18 02:00 Blood Gram Stain - Final 05/02/18 02:41 Urine Urine Culture - Final Escherichia Coli Most Recent Lab Values WBC 6.8 K/uL (4.8-10.8) 05/12/18 07:09 RBC 4.44 Mil/uL (3.80-5.20) 05/12/18 07:09 Hgb 12.7 g/dL (11.0-16.0) 05/12/18 07:09 Hct 37.0 % (34.0-47.0) 05/12/18 07:09 MCV 83.2 fL (81.0-99.0) 05/12/18 07:09 MCH 28.5 pg (27.0-31.0) 05/12/18 07:09 MCHC 34.3 g/dL (33.0-37.0) 05/12/18 07:09 RDW 14.1 % (11.5-14.5) 05/12/18 07:09 Plt Count 423 K/uL (130-400) H 05/12/18 07:09 MPV 8.5 fL (7.2-11.7) 05/12/18 07:09 Neut % (Auto) 57.1 % (50.0-75.0) 05/12/18 07:09 Lymph % (Auto) 32.4 % (20.0-40.0) 05/12/18 07:09 Hawkins % (Auto) 8.5 % (0.0-10.0) 05/12/18 07:09 Eos % (Auto) 1.3 % (0.0-4.0) 05/12/18 07:09 Baso % (Auto) 0.7 % (0.0-2.0) 05/12/18 07:09 Neut # (Auto) 3.9 K/uL (1.8-7.0) 05/12/18 07:09 Lymph # (Auto) 2.2 K/uL (1.0-4.3) 05/12/18 07:09 Hawkins # (Auto) 0.6 K/uL (0.0-0.8) 05/12/18 07:09 Eos # (Auto) 0.1 K/uL (0.0-0.7) 05/12/18 07:09 Baso # (Auto) 0.0 K/uL (0.0-0.2) 05/12/18 07:09 Neutrophils % (Manual) 70 % (50-75) 05/03/18 06:18 Band Neutrophils % 18 % (0-2) H* 05/03/18 06:18 Lymphocytes % (Manual) 9 % (20-40) L 05/03/18 06:18 Monocytes % (Manual) 3 % (0-10) 05/03/18 06:18 Toxic Granulation Present 05/03/18 06:18 Platelet Estimate Slightly decreased (NORMAL) L 05/03/18 06:18 Polychromasia Slight 05/03/18 06:18 Hypochromasia (manual) Slight 05/03/18 06:18 Anisocytosis (manual) Slight 05/03/18 06:18 PT 14.0 SECONDS (9.7-12.2) H 05/02/18 02:41 INR 1.3 05/02/18 02:41 APTT 37 SECONDS (21-34) H 05/02/18 02:41 Sodium 137 mmol/L (132-148) 05/12/18 07:09 Potassium 4.3 mmol/L (3.6-5.2) 05/12/18 07:09 Chloride 102 mmol/L (98-107) 05/12/18 07:09 Carbon Dioxide 25 mmol/L (22-30) 05/12/18 07:09 Anion Gap 14 (10-20) 05/12/18 07:09 BUN 20 mg/dL (7-17) H 05/12/18 07:09 Creatinine 0.7 mg/dL (0.7-1.2) 05/12/18 07:09 Est GFR ( Amer) > 60 05/12/18 07:09 Est GFR (Non-Af Amer) > 60 05/12/18 07:09 Random Glucose 91 mg/dL (65-105) 05/12/18 07:09 Hemoglobin A1c 5.6 % (4.2-6.5) 05/08/18 07:38 Lactic Acid 0.7 mmol/L (0.7-2.1) 05/05/18 10:55 Uric Acid 2.8 mg/dL (2.2-7.5) 05/07/18 19:53 Calcium 9.4 mg/dl (8.6-10.4) 05/12/18 07:09 Phosphorus 3.5 mg/dL (2.5-4.5) 05/12/18 07:09 Magnesium 2.3 mg/dL (1.6-2.3) 05/12/18 07:09 Total Bilirubin 0.4 mg/dL (0.2-1.3) 05/12/18 07:09 AST 24 U/L (14-36) 05/12/18 07:09 ALT 34 U/L (9-52) 05/12/18 07:09 Alkaline Phosphatase 88 U/L (38-126) 05/12/18 07:09 Total Protein 7.1 g/dL (6.3-8.3) 05/12/18 07:09 Albumin 4.1 g/dL (3.5-5.0) 05/12/18 07:09 Globulin 3.1 gm/dL (2.2-3.9) 05/12/18 07:09 Albumin/Globulin Ratio 1.3 (1.0-2.1) 05/12/18 07:09 Lipase 37 U/L (23-300) 05/02/18 02:41 Procalcitonin 0.16 NG/ML (0.19-0.49) L 05/10/18 13:54 TSH 3rd Generation 1.94 mIU/L (0.46-4.68) 05/08/18 07:38 Calcium (PTH Intact) 9.1 mg/dL (8.6-10.2) 05/07/18 19:53 PTH w/Ion &Tot Calcium 58 pg/mL (14-64) 05/07/18 19:53 Urine Color Yellow (YELLOW) 05/02/18 01:40 Urine Clarity Clear (Clear) 05/02/18 01:40 Urine pH 5.0 (5.0-8.0) 05/02/18 01:[address] 1.009 (1.003-1.030) 05/02/18 01:40 Urine Protein Negative mg/dL (NEGATIVE) 05/02/18 01:40 Urine Glucose (UA) Normal mg/dL (Normal) 05/02/18 01:40 Urine Ketones Negative mg/dL (NEGATIVE) 05/02/18 01:40 Urine Blood Trace (NEGATIVE) H 05/02/18 01:40 Urine Nitrate Negative (NEGATIVE) 05/02/18 01:40 Urine Bilirubin Negative (NEGATIVE) 05/02/18 01:40 Urine Urobilinogen Normal mg/dL (0.2-1.0) 05/02/18 01:40 Ur Leukocyte Esterase Neg Gary/uL (Negative) 05/02/18 01:40 Urine WBC (Auto) 2 /hpf (0-5) 05/02/18 01:40 Urine RBC (Auto) 1 /hpf (0-3) 05/02/18 01:40 Ur Squamous Epith Cells 1 /hpf (0-5) 05/02/18 01:40 Urine Bacteria Few (<OCC) H 05/02/18 01:40 Urine HCG, Qual Negative (NEGATIVE) 05/02/18 01:40 - Hospital Course Hospital Course: On admission: Patient is a 37 year old female with no past medical history who presents with complaints of left sided flank pain that started at 8pm Thurs night. The patient describes the pain as severe, sharp, and constant. She also complaints of increased urinary frequency, foul odor, and painful urination. She denies hematuria. She has had kidney stones approximately 1.5 years ago in [place] which was given IV medications. In the ED, patient had a fever of 102.7. She currently complains of fever, chills, weakness, headache, dizziness, nausea , vomiting, increased frequency, pain with urination, and back/flank pain. During hospital stay: Patient was found to have E.Coli and ESBL x2 blood cultures. ID was consulted. Patient received Meropenem 1 gram IVPB Q8H beginning 05/02/18. Urology was consulted. CT Abdomen/pelvis showed mild left hydroureteronephrosis secondary to an obstructing 3 mm calculus in the left uretovesciular junction. moderate inflammatory left perinephric fat stranding. delayed left sided nephrogram in comparison to the right. bilateral renal collecting system calcificiations/calculi. Renal ultrasound showed mild left hydroureteronephrosis secondary to an obstructing 3 mm calculus in the left uretovesciular junction. moderate inflammatory left perinephric fat stranding. delayed left sided nephrogram in comparison to the right. bilateral renal collecting system calcificiations/calculi. Patient underwent cystogram and stent placement. Patient received picc line for administration of antibiotics. Patient was also found to have soft tissue density abnormality noted on CT scan and was recommended to followup outpatient for breast ultrasound and mammogram. Repeat blood and urine cultures showed no growth. Patient medically stable for discharge. Patient to follow for outpatient transfusion center tomorrow 05/13/18 at 9AM. Patient to complete Invanz 1 gram IV once daily for 10 days and to have picc line removed when antibiotic is completed. Patient to follow to establish care at [facility] [phone] at 9AM 05/20/18 at 9AM ( must come by 8:30 AM) Patient to followup at [facility] for stent removal. Urology appointment at [facility] on June 24 at 2:00 PM [phone] Patient will need to follow up for abnormality on breast tissue noted on CT. Please return to ED if symptoms return or worsen. - Date & Time of H&P Date of H&P: 05/02/18 Time of H&P: 06:49 Discharge Exam - Additional Findings Additional findings: - Constitutional Appears: Non-toxic - Head Exam Head Exam: ATRAUMATIC, NORMAL INSPECTION - Eye Exam Eye Exam: EOMI - ENT Exam ENT Exam: Mucous Membranes Moist - Neck Exam Neck Exam: Full ROM - Respiratory Exam Respiratory Exam: NORMAL BREATHING PATTERN, Clear to Auscultation Bilaterally - Cardiovascular Exam Cardiovascular Exam: Regular Rhythm, +S1, +S2 - GI/Abdominal Exam GI & Abdominal Exam: Soft, Normal Bowel Sounds. absent: Rigid, Tenderness - Extremities Exam Extremities Exam: Full ROM. absent: Calf Tenderness, Pedal Edema - Back Exam Back Exam: Normal. absent: CVA tenderness - Neurological Exam Neurological Exam: Alert, Awake, Oriented x3 - Psychiatric Exam Psychiatric exam: Normal Affect, Normal Mood - Skin Skin Exam: Dry, Intact, Warm Discharge Plan - Follow Up Plan Condition: FAIR Disposition: HOME/ ROUTINE Instructions: Peripherally-Inserted Central Catheter, Renal Colic (DC), Ertapenem, Extended-Spectrum Beta Lactamase Infection Additional Instructions: Patient medically stable for discharge. Patient to follow for outpatient transfusion center tomorrow 05/13/18 at 9AM. Patient to complete Invanz 1 gram IV once daily for 10 days and to have picc line removed when antibiotic is completed. Patient to follow to establish care at [facility] [phone] at 9AM 05/20/18 at 9AM ( must come by 8:30 AM) Patient to followup at [facility] for stent removal. Urology appointment at [facility] on June 24 at 2:00 PM [phone] Patient will need to follow up for abnormality on breast tissue noted on CT. Please return to ED if symptoms return or worsen. Referrals: [facility] at [facility] [Outside] - 05/27/18 9:00 am Colin Elizabeth MD [Staff Provider] - 06/03/18 1:45 pm <Paloma Tovar V - Last Filed: 05/12/18 21:21> Provider - Provider Date of Admission: 05/04/18 13:07 Attending physician: Paloma Tovar DO Diagnosis - Discharge Diagnosis (1) Sepsis Status: Resolved (2) Nephrolithiasis Status: Chronic (3) Hydronephrosis Status: Chronic (4) Urinary tract infection Status: Resolved (5) ESBL (extended spectrum beta-lactamase) producing bacteria infection Status: Resolved (6) Renal colic on left side Status: Resolved Hospital Course - Lab Results Lab Results: Micro Results 05/05/18 10:57 Blood-Venous Blood Culture - Final NO GROWTH AFTER 5 DAYS 05/05/18 10:57 Blood-Venous Gram Stain - Final TEST NOT PERFORMED 05/05/18 07:18 Blood-Venous Blood Culture - Final NO GROWTH AFTER 5 DAYS 05/05/18 07:18 Blood-Venous Gram Stain - Final TEST NOT PERFORMED 05/05/18 07:20 Urine,Clean Catch Urine Culture - Final No Growth (<1,000 CFU/ML) 05/02/18 02:30 Blood Blood Culture - Final Escherichia Coli 05/02/18 02:30 Blood Gram Stain - Final 05/02/18 02:00 Blood Blood Culture - Final Escherichia Coli 05/02/18 02:00 Blood Gram Stain - Final 05/02/18 02:41 Urine Urine Culture - Final Escherichia Coli Most Recent Lab Values WBC 6.8 K/uL (4.8-10.8) 05/12/18 07:09 RBC 4.44 Mil/uL (3.80-5.20) 05/12/18 07:09 Hgb 12.7 g/dL (11.0-16.0) 05/12/18 07:09 Hct 37.0 % (34.0-47.0) 05/12/18 07:09 MCV 83.2 fL (81.0-99.0) 05/12/18 07:09 MCH 28.5 pg (27.0-31.0) 05/12/18 07:09 MCHC 34.3 g/dL (33.0-37.0) 05/12/18 07:09 RDW 14.1 % (11.5-14.5) 05/12/18 07:09 Plt Count 423 K/uL (130-400) H 05/12/18 07:09 MPV 8.5 fL (7.2-11.7) 05/12/18 07:09 Neut % (Auto) 57.1 % (50.0-75.0) 05/12/18 07:09 Lymph % (Auto) 32.4 % (20.0-40.0) 05/12/18 07:09 Hawkins % (Auto) 8.5 % (0.0-10.0) 05/12/18 07:09 Eos % (Auto) 1.3 % (0.0-4.0) 05/12/18 07:09 Baso % (Auto) 0.7 % (0.0-2.0) 05/12/18 07:09 Neut # (Auto) 3.9 K/uL (1.8-7.0) 05/12/18 07:09 Lymph # (Auto) 2.2 K/uL (1.0-4.3) 05/12/18 07:09 Hawkins # (Auto) 0.6 K/uL (0.0-0.8) 05/12/18 07:09 Eos # (Auto) 0.1 K/uL (0.0-0.7) 05/12/18 07:09 Baso # (Auto) 0.0 K/uL (0.0-0.2) 05/12/18 07:09 Neutrophils % (Manual) 70 % (50-75) 05/03/18 06:18 Band Neutrophils % 18 % (0-2) H* 05/03/18 06:18 Lymphocytes % (Manual) 9 % (20-40) L 05/03/18 06:18 Monocytes % (Manual) 3 % (0-10) 05/03/18 06:18 Toxic Granulation Present 05/03/18 06:18 Platelet Estimate Slightly decreased (NORMAL) L 05/03/18 06:18 Polychromasia Slight 05/03/18 06:18 Hypochromasia (manual) Slight 05/03/18 06:18 Anisocytosis (manual) Slight 05/03/18 06:18 PT 14.0 SECONDS (9.7-12.2) H 05/02/18 02:41 INR 1.3 05/02/18 02:41 APTT 37 SECONDS (21-34) H 05/02/18 02:41 Sodium 137 mmol/L (132-148) 05/12/18 07:09 Potassium 4.3 mmol/L (3.6-5.2) 05/12/18 07:09 Chloride 102 mmol/L (98-107) 05/12/18 07:09 Carbon Dioxide 25 mmol/L (22-30) 05/12/18 07:09 Anion Gap 14 (10-20) 05/12/18 07:09 BUN 20 mg/dL (7-17) H 05/12/18 07:09 Creatinine 0.7 mg/dL (0.7-1.2) 05/12/18 07:09 Est GFR ( Amer) > 60 05/12/18 07:09 Est GFR (Non-Af Amer) > 60 05/12/18 07:09 Random Glucose 91 mg/dL (65-105) 05/12/18 07:09 Hemoglobin A1c 5.6 % (4.2-6.5) 05/08/18 07:38 Lactic Acid 0.7 mmol/L (0.7-2.1) 05/05/18 10:55 Uric Acid 2.8 mg/dL (2.2-7.5) 05/07/18 19:53 Calcium 9.4 mg/dl (8.6-10.4) 05/12/18 07:09 Phosphorus 3.5 mg/dL (2.5-4.5) 05/12/18 07:09 Magnesium 2.3 mg/dL (1.6-2.3) 05/12/18 07:09 Total Bilirubin 0.4 mg/dL (0.2-1.3) 05/12/18 07:09 AST 24 U/L (14-36) 05/12/18 07:09 ALT 34 U/L (9-52) 05/12/18 07:09 Alkaline Phosphatase 88 U/L (38-126) 05/12/18 07:09 Total Protein 7.1 g/dL (6.3-8.3) 05/12/18 07:09 Albumin 4.1 g/dL (3.5-5.0) 05/12/18 07:09 Globulin 3.1 gm/dL (2.2-3.9) 05/12/18 07:09 Albumin/Globulin Ratio 1.3 (1.0-2.1) 05/12/18 07:09 Lipase 37 U/L (23-300) 05/02/18 02:41 Procalcitonin 0.16 NG/ML (0.19-0.49) L 05/10/18 13:54 TSH 3rd Generation 1.94 mIU/L (0.46-4.68) 05/08/18 07:38 Calcium (PTH Intact) 9.1 mg/dL (8.6-10.2) 05/07/18 19:53 PTH w/Ion &Tot Calcium 58 pg/mL (14-64) 05/07/18 19:53 Urine Color Yellow (YELLOW) 05/02/18 01:40 Urine Clarity Clear (Clear) 05/02/18 01:40 Urine pH 5.0 (5.0-8.0) 05/02/18 01:[address] 1.009 (1.003-1.030) 05/02/18 01:40 Urine Protein Negative mg/dL (NEGATIVE) 05/02/18 01:40 Urine Glucose (UA) Normal mg/dL (Normal) 05/02/18 01:40 Urine Ketones Negative mg/dL (NEGATIVE) 05/02/18 01:40 Urine Blood Trace (NEGATIVE) H 05/02/18 01:40 Urine Nitrate Negative (NEGATIVE) 05/02/18 01:40 Urine Bilirubin Negative (NEGATIVE) 05/02/18 01:40 Urine Urobilinogen Normal mg/dL (0.2-1.0) 05/02/18 01:40 Ur Leukocyte Esterase Neg Gary/uL (Negative) 05/02/18 01:40 Urine WBC (Auto) 2 /hpf (0-5) 05/02/18 01:40 Urine RBC (Auto) 1 /hpf (0-3) 05/02/18 01:40 Ur Squamous Epith Cells 1 /hpf (0-5) 05/02/18 01:40 Urine Bacteria Few (<OCC) H 05/02/18 01:40 Urine HCG, Qual Negative (NEGATIVE) 05/02/18 01:40 Attending/Attestation - Attestation I have personally seen and examined this patient.: Yes I have fully participated in the care of the patient.: Yes I have reviewed all pertinent clinical information, including history, physical exam and plan: Yes Notes (Text): Patient seen, examined and case discussed with medical charge entry specialist. patient seen with the assistance of katey Gonzales in Pashto. Patient's left flank pain has resolved. Patient LLQ and suprapubic tenderness has improved. Case management has made arrangements for the patient for outpatient transfusion center. Discharge instructions discussed by me, the resident and the assistance of my medical student,sitka Pashto speaker Melissa to assist patient upon discharge. Patient medically stable for discharge. Patient to follow for outpatient transfusion center tomorrow 05/13/18 at 9AM. Patient to complete Invanz 1 gram IV once daily for 10 days and to have picc line removed when antibiotic is completed. Patient to follow to establish care at [facility] [phone] at 9AM 05/20/18 at 9AM ( must come by 8:30 AM) at [facility] for her general health care [facility]. She will need f/u breast exam and possible breast mammogram and breast US to evaluate abnormality noted on CT. Patient to followup at [facility] for stent removal. Urology appointment at [facility] on June 24 at 2:00 PM [phone]. We did speak with Dr. Noe's office who was telecommunications project manager; however he does not accept [facility] patients and patient cannot afford to meet his practice numbers for first visit 500 dollars or the 1000 dollars needed for surgery; alternative provided at [facility] which has a [facility]. Patient will need to follow up for abnormality on breast tissue noted on CT. Please return to ED if symptoms return or worsen. This is a summary of patient's hospitalization. Please see EMR for further detail of record. Assessment/Plan 1) Sepsis ESBL+ UTI EBSL+ Bacteremia Assessment/Plan * Criteria: 102.7F, leukopenic, source of infection: bacteremia, urinary tract infection * Lactic acid: 2.0--> 0.7 * Infectious Disease (Dr. Elizabeth) telecommunications project manager--help appreciated * Needs IV Merrem then Invanz for total 14 days- if pyuria persists may need longer course with oral suppresive agent such as Macrobid * Meropenem 1 gram IVPB Q8H (active since 05/02/18) * Script from ID: [id number] 1 gram IV q daily for ten days with CBC/CMP; to setup for outpatient transfusion center * Urology (Dr. Noe) on case help appreciated * f/u outpatient for stent removal * Blood culture (05/02/18): E. Coli +ESBL X2 * Blood culture (05/05/18): no growth after 5 days X2 * Urine culture (05/02/18): E. Coli * Urine culture (05/05/18): no growth * Contact isolation * PICC line placed for terminal worker IV abx * Florastor 250mg PO BID * Procalcitonin: 80.21--->5.54--->0.16 * Tylenol 650mg PO Q6H PRN 2) Nephrolithiasis Left Hydroureteronephrosis Assessment/Plan * Urology (Dr. Noe) on case help appreciated * CT Abdomen/pelvis (05/02/18): mild left hydroureteronephrosis secondary to an obstructing 3 mm calculus in the left uretovesciular junction. moderate inflammatory left perinephric fat stranding. delayed left sided nephrogram in comparison to the right. bilateral renal collecting system calcificiations/ calculi. * Renal US (05/02/18): mild left perinephric fluid. Mild left hydronephrosis. Possible forniceal rupture due to more distal obstruction of the collecting system. 5 mm nonobstructing calculus noted in the both right and left kidney * s/p cystogram and stent placement (05/02/18): official op note pending * Flomax 0.4mg PO daily 3) Soft tissue density in left breast Assessment/Plan * Recommended for outpatient breast US and mammogram for further investigation in abnormality noted on CT scan. 4) Electrolyte abnormalities Assessment/Plan * monitor and replete 5) Prophylaxis * DVT PPx:: SCDs, Heparin 5000U SC Q12 * GI: Protonix 40 mg IVP daily
[2018-05-12 15:55] VITALS: BP 92/53; PULSE 68; TEMP 98.4; O2SAT 99
--- NOTE | 2018-05-22 06:48 | OP ---
Copied To: Nakul Noe MD Attending MD: Nakul Noe MD PROCEDURE DATE: 05/02/2018 PREOPERATIVE DIAGNOSIS: The patient has left ureteral calculus. DESCRIPTION OF PROCEDURE: The patient was brought to the OR, prepped and draped in the usual manner with general anesthesia given. A #[id number]-[id number] ureteroscope was introduced to the bladder. Three FiberWires were then inserted into the left ureter. Double J stent was then placed over the wire and the wire removed. There was good placement of the stent. The patient tolerated the procedure well, left the OR in good condition. Nakul Noe MD
== END 2018-05-12 16:55 | disposition home or self-care (01) | DRG 872 ==
LOC: C.ER 00:52 → C.3T 05:07 → OBSVTOIN 05-04 13:07 → C.5S 05-05 08:52 → C.3T 05-08 22:28 → C.5S 05-08 22:48
PROVIDERS: ADMIT Hospitalist; ATTEND Hospitalist
PROC: 02HV33Z Insertion of Infusion Device into Superior Vena Cava, Percutaneous Approach (ICD-10-PCS; principal; 2018-05-05)
PROC: 0T778DZ Dilation of Left Ureter with Intraluminal Device, Via Natural or Artificial Opening Endoscopic (ICD-10-PCS; 2018-05-05)
DX: A41.9 Sepsis, unspecified organism (principal); N13.6 Pyonephrosis; N13.2 Hydronephrosis with renal and ureteral calculous obstruction; B96.20 Unspecified Escherichia coli [E. coli] as the cause of diseases classified elsewhere; D72.819 Decreased white blood cell count, unspecified; Z16.12 Extended spectrum beta lactamase (ESBL) resistance; N63.0 Unspecified lump in unspecified breast; Z68.38 Body mass index [BMI] 38.0-38.9, adult

== ENCOUNTER 2018-06-28 21:02 | Emergency (ER) | payer SELFPAY ==
[2018-06-28 21:03] VITALS: BMI 37.3
--- NOTE | 2018-06-28 23:10 | C.PDOC ---
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 Denies any trauma, weakness, or numbness. Time Seen by Provider: 06/28/18 21:44 Chief Complaint (Nursing): Lower Extremity Problem/Injury History Per: Patient History/Exam Limitations: no limitations Onset/Duration Of Symptoms: Days Current Symptoms Are (Timing): Still Present Past Medical History Reviewed: Historical Data, Nursing Documentation, Vital Signs Vital Signs: Last Vital Signs Temp 99.2 F 06/28/18 21:24 Pulse 97 H 06/28/18 21:24 Resp 18 06/28/18 21:24 BP 121/82 06/28/18 21:24 Pulse Ox 96 06/28/18 21:24 - Medical History PMH: Chronic Kidney Disease - [facility] Procedures DILATION OF LEFT URETER WITH INTRALUMINAL DEVICE, ENDO (05/04/18) INSERTION OF INFUSION DEV INTO SUP VENA CAVA, PERC APPROACH (05/04/18) Family History: States: No Known Family Hx - Social History Hx Alcohol Use: No Hx Substance Use: No - Immunization History Hx Tetanus Toxoid Vaccination: No Hx Influenza Vaccination: No Hx Pneumococcal Vaccination: No Review Of Systems Except As Marked, All Systems Reviewed And Found Negative. Constitutional: Negative for: Fever Cardiovascular: Negative for: Chest Pain Respiratory: Negative for: Shortness of Breath Gastrointestinal: Negative for: Nausea, Vomiting, Diarrhea Musculoskeletal: Positive for: Other (L heel pain) Neurological: Negative for: Weakness, Numbness Physical Exam - Physical Exam Appears: Non-toxic, No Acute Distress Skin: Warm, Dry Head: Atraumatic, Normacephalic Eye(s): bilateral: Normal Inspection Oral Mucosa: Moist Neck: Supple Extremity: Tenderness (to L calcaneus; no erythema), Capillary Refill (less than 2 seconds), No Deformity, No Swelling (of L calcaneus) Extremity: Bilateral: Normal Color And Temperature, Normal ROM Pulses: Left Dorsalis Pedis: Normal, Right Dorsalis Pedis: Normal Neurological/Psych: Oriented x3, Normal Speech, Other (AAOx3) Gait: Steady ED Course And Treatment O2 Sat by Pulse Oximetry: 96 (RA) Pulse Ox Interpretation: Normal Progress Note: Patient was advised to take motrin and to follow up with clinical documentation improvement specialist. Disposition - Disposition Referrals: Podiatry Clinic [Outside] Disposition: HOME/ ROUTINE Disposition Time: 23:07 Condition: STABLE Additional Instructions: Wear support shoes Motrin for pain Return to ER if worse Prescriptions: Ibuprofen [Motrin] 600 mg PO Q6H #20 tab Instructions: Heel Pain (Caused by Plantar Fasciitis) (DC) Forms: [facility] (Icelandic) - Clinical Impression Clinical Impression: Plantar fasciitis of right foot - PA / SHIRT HEMMER / Resident Statement MD/DO has reviewed & agrees with the documentation as recorded. - Scribe Statement The provider has reviewed the documentation as recorded by the Scribben Moran All medical record entries made by the Twinibben were at my direction and personally dictated by me. I have reviewed the chart and agree that the record accurately reflects my personal performance of the history, physical exam, medical decision making, and the department course for this patient. I have also personally directed, reviewed, and agree with the discharge instructions and disposition.
[2018-06-29 00:46] VITALS: BP 124/72; PULSE 90; RESP 20; TEMP 98.1
[2018-06-29 03:24] VITALS: O2SAT 96
== END 2018-06-28 23:50 | disposition home or self-care (01) ==
LOC: C.ER 21:02
DX: M72.2 Plantar fascial fibromatosis (principal)

== ENCOUNTER 2018-08-13 13:30 | Emergency (ER) | payer OTHER ==
[2018-08-13 13:31] VITALS: BMI 37.3
--- NOTE | 2018-08-13 15:11 | C.PDOC ---
History Of Present Illness 38 year old female with no significant past medical history presents to the ED for evaluation of rectal pain and blood noted in her stool x 10 days. Patient states she was hospitalized for a bacterial infection in her blood and kidney stones and was discharged with antibiotics. Patient states she began experiencing constipation and diarrhea shortly after starting the antibiotics. Patient reports "meat-like" structures in her stool. She denies fever, chills, chest pain, shortness of breath, palpitations, dizziness, abdominal pain or changes in diet. Time Seen by Provider: 08/13/18 14:03 Chief Complaint (Nursing): Abdominal Pain History Per: Patient, Bench Manager (Simone #[id number]) History/Exam Limitations: no limitations Onset/Duration Of Symptoms: Days Current Symptoms Are (Timing): Still Present Quality Of Discomfort: denies: "Pain" Associated Symptoms: denies: Fever, Chills, Nausea, Vomiting Past Medical History Reviewed: Historical Data, Nursing Documentation, Vital Signs Vital Signs: Last Vital Signs Temp 98.2 F 08/13/18 13:43 Pulse 88 08/13/18 13:43 Resp 16 08/13/18 13:43 BP 123/88 08/13/18 13:43 Pulse Ox 99 08/13/18 13:43 - Medical History PMH: Chronic Kidney Disease Surgical History: No Surg Hx - [facility] Procedures DILATION OF LEFT URETER WITH INTRALUMINAL DEVICE, ENDO (05/04/18) INSERTION OF INFUSION DEV INTO SUP VENA CAVA, PERC APPROACH (05/04/18) Family History: States: Unknown Family Hx - Social History Hx Alcohol Use: No Hx Substance Use: No - Immunization History Hx Tetanus Toxoid Vaccination: No Hx Influenza Vaccination: No Hx Pneumococcal Vaccination: No Review Of Systems Constitutional: Negative for: Fever, Chills Cardiovascular: Negative for: Chest Pain Respiratory: Negative for: Shortness of Breath Gastrointestinal: Positive for: Hematochezia, Rectal Pain. Negative for: Lavelle sea, Vomiting Physical Exam - Physical Exam Appears: Non-toxic, No Acute Distress, Other (comfortable ) Skin: Normal Color, Warm, Dry Head: Atraumatic, Normacephalic Eye(s): bilateral: Normal Inspection Oral Mucosa: Moist Neck: Supple Chest: Symmetrical, No Deformity, No Tenderness Cardiovascular: Rhythm Regular, No Murmur Respiratory: Normal Breath Sounds, No Rales, No Rhonchi, No Wheezing Gastrointestinal/Abdominal: Soft, Tenderness (to lower right, left and suprapubic quadrants with light-deep palpation ), No Guarding, No Rebound Rectal: Heme Negative, Hemorrhoids (external ), No Other (active bleeding ) Back: No Vertebral Tenderness, No Paraspinal Tenderness Extremity: Normal ROM, Capillary Refill (less than 2 seconds ), No Swelling Neurological/Psych: Oriented x3, Normal Speech, Normal Cognition ED Course And Treatment - Laboratory Results Result Diagrams: 08/13/18 16:03 08/13/18 16:03 O2 Sat by Pulse Oximetry: 99 (on RA) Pulse Ox Interpretation: Normal Medical Decision Making Medical Decision Making: Progress: Bloodwork, urinalysis and Abdominal ultrasound ordered and reviewed. Disposition Counseled Patient/Family Regarding: Studies Performed, Diagnosis, Need For Followup, Rx Given - Disposition Referrals: [facility] [Outside] Disposition: HOME/ ROUTINE Disposition Time: 17:00 Condition: STABLE Additional Instructions: follow up with medical clinic within 2 days call to make an appointment take medications as prescribed return to ER if symptoms worsens or progress Prescriptions: Docusate Sodium [Colace] 100 mg PO BID PRN #20 capsule PRN Reason: Constipation Hard Fat/Phenylephrine W[place]se [Hemorrhoidal 88.7%-0.25%] 1 sup ME DAILY PRN #15 sup PRN Reason: Hemorrhoids Naproxen [Naprosyn] 500 mg PO BID PRN #16 tab PRN Reason: Pain, Moderate (4-7) Instructions: Hemorrhoids (DC) Forms: [facility] (Wolof), General Discharge Instructions - Clinical Impression Clinical Impression: External hemorrhoid - Scribe Statement The provider has reviewed the documentation as recorded by the Scribe (Livier Jovel) Provider Attestation: All medical record entries made by the Scribe were at my direction and personally dictated by me. I have reviewed the chart and agree that the record accurately reflects my personal performance of the history, physical exam, medical decision making, and the department course for this patient. I have also personally directed, reviewed, and agree with the discharge instructions and disposition.
[2018-08-13 16:08] LABS: BASO # 0.1 K/uL (0.0-0.2); BASO % 0.8 % (0.0-2.0); EOS # 0.1 K/uL (0.0-0.7); EOS % 0.9 % (0.0-4.0); HEMOGLOBIN 12.4 g/dL (11.0-16.0); LYMPH # 2.4 K/uL (1.0-4.3); LYMPH % 31.2 % (20.0-40.0); MEAN CELL VOLUME 82.9 fL (81.0-99.0); MEAN CORPUSCULAR HEMOGLOBIN 27.8 pg (27.0-31.0); MEAN CORPUSCULAR HGB CONC 33.5 g/dL (33.0-37.0); MEAN PLATELET VOLUME 8.4 fL (7.2-11.7); MONO # 0.5 K/uL (0.0-0.8); MONO % 6.4 % (0.0-10.0); NEUT # 4.7 K/uL (1.8-7.0); NEUT % 60.7 % (50.0-75.0); NRBC % 0.1 % (0.0-2.0); RBC 4.48 Mil/uL (3.80-5.20); RED CELL DISTRIBUTION WIDTH 14.4 % (11.5-14.5); WHITE BLOOD COUNT 7.7 K/uL (4.8-10.8)
[2018-08-13 16:12] LABS: SQUAMOUS EPITHIAL 1 /hpf (0-5); URINE BILIRUBIN NEGATIVE (NEGATIVE); URINE CLARITY Clear (Clear); URINE COLOR Yellow (YELLOW); URINE GLUCOSE (UA) NORMAL (Normal); URINE LEUKOCYTE ESTERASE NEG Leu/uL (Negative); URINE PROTEIN NEGATIVE (NEGATIVE); URINE UROBILINOGEN NORMAL mg/dL (0.2-1.0)
[2018-08-13 16:31] LABS: ALB/GLOB RATIO 1.6 (1.0-2.1); ALBUMIN 4.4 g/dL (3.5-5.0); ALT/SGPT 18 U/L (9-52); AST/SGOT 22 U/L (14-36); BLOOD UREA NITROGEN 17 mg/dL (7-17); CALCIUM 9.1 mg/dl (8.6-10.4); GFR NON-AFRICAN AMERICAN > 60; LIPASE 50 U/L (23-300)
[2018-08-13 16:33] LABS: INR 1.1; PROTHROMBIN TIME 12.2 SECONDS (9.7-12.2)
[2018-08-13 16:35] LABS: URINE BLOOD TRACE (NEGATIVE)
--- NOTE | 2018-08-13 17:06 | RAD ---
Date of service: 08/13/2018 PROCEDURE: Radiographs of the chest and abdomen (obstructive series) HISTORY: abd pain COMPARISON: No prior. TECHNIQUE: AP radiograph of the chest, with upright and supine radiographs of the abdomen. FINDINGS: CHEST: Lungs: Clear. Cardiovascular: Normal size heart. No pulmonary vascular congestion. No aortic atherosclerotic calcification present Pleura: No pleural fluid. No pneumothorax. Other findings: None. ABDOMEN AND PELVIS: Bowel: Unremarkable bowel gas pattern. No evidence of mechanical obstruction. Free air: None. Bones: Unremarkable. Other findings: Intrauterine device incidentally noted. IMPRESSION: Unremarkable radiographs of chest and abdomen. No evidence of mechanical bowel obstruction.
[2018-08-13 17:38] VITALS: BP 151/76; PULSE 64; RESP 20; TEMP 98.7
[2018-08-13 23:11] VITALS: O2SAT 99
== END 2018-08-13 17:41 | disposition home or self-care (01) ==
LOC: C.ER 13:30
DX: K64.4 Residual hemorrhoidal skin tags (principal); N18.9 Chronic kidney disease, unspecified

== ENCOUNTER 2018-12-10 17:58 | Emergency (ER) | payer OTHER ==
[2018-12-10 17:59] VITALS: BMI 37.3
[2018-12-10 18:18] VITALS: BP 117/77; PULSE 66; RESP 18; TEMP 97.8; O2SAT 100
--- NOTE | 2018-12-10 20:06 | C.PDOC ---
History Of Present Illness 38 y/o female presents to the ER complaining of right foot pain and swelling for the past 3 months. Patient describes the pain as burning sensation. Patient reports that she injured her foot 1 year. Denies recent injuries, falls, weakness and numbness. Time Seen by Provider: 12/10/18 19:08 Chief Complaint (Nursing): Lower Extremity Problem/Injury History Per: Copyright Manager ([id number]) History/Exam Limitations: no limitations Onset/Duration Of Symptoms: Days Current Symptoms Are (Timing): Still Present Severity: Moderate Past Medical History Reviewed: Historical Data, Nursing Documentation, Vital Signs Vital Signs: Last Vital Signs Temp 97.8 F 12/10/18 18:16 Pulse 66 12/10/18 18:16 Resp 18 12/10/18 18:16 BP 117/77 12/10/18 18:16 Pulse Ox 100 12/10/18 18:16 - Medical History PMH: Kidney Stones, Chronic Kidney Disease Other Surgeries: Hx of surgeries - [facility] Procedures DILATION OF LEFT URETER WITH INTRALUMINAL DEVICE, ENDO (05/04/18) INSERTION OF INFUSION DEV INTO SUP VENA CAVA, PERC APPROACH (05/04/18) Family History: States: No Known Family Hx - Social History Hx Alcohol Use: No Hx Substance Use: No - Immunization History Hx Tetanus Toxoid Vaccination: No Hx Influenza Vaccination: No Hx Pneumococcal Vaccination: No Review Of Systems Musculoskeletal: Positive for: Foot Pain (right foot pain and swelling) Neurological: Negative for: Weakness, Numbness Physical Exam - Physical Exam Appears: Non-toxic, No Acute Distress Skin: Normal Color, Warm, Dry Head: Atraumatic, Normacephalic Eye(s): bilateral: Normal Inspection Nose: Normal Oral Mucosa: Moist Neck: Supple Chest: Symmetrical Extremity: Normal ROM, Tenderness (mild tenderness to right foot), No Swelling Pulses: Right Dorsalis Pedis: Normal Neurological/Psych: Oriented x3, Normal Speech, Normal Motor, Normal Sensation Gait: Steady ED Course And Treatment O2 Sat by Pulse Oximetry: 100 (RA) Pulse Ox Interpretation: Normal Medical Decision Making Medical Decision Making: pt with 3+months foot pain; no signs infection. d/c with podiatry f/u Disposition Counseled Patient/Family Regarding: Diagnosis, Need For Followup, Rx Given - Disposition Referrals: [facility] [Outside] Podiatry Clinic [Outside] [facility] [Outside] Disposition: HOME/ ROUTINE Disposition Time: 20:05 Condition: GOOD Additional Instructions: Take Tylenol for foot pain. Call medical clinic to make follow up appointments with medicine and with alternative dispute resolution mediator. Forms: [email or web address] (Yoruba), General Discharge Instructions - Clinical Impression Clinical Impression: Right foot pain - PA / DIRECTOR REHABILITATION PROGRAM / Resident Statement MD/DO has reviewed & agrees with the documentation as recorded. - Scribe Statement The provider has reviewed the documentation as recorded by the Clarissa Caputo Provider Attestation All medical record entries made by the Clarissa were at my direction and personally dictated by me. I have reviewed the chart and agree that the record accurately reflects my personal performance of the history, physical exam, medical decision making, and the department course for this patient. I have also personally directed, reviewed, and agree with the discharge instructions and disposition.
== END 2018-12-10 20:21 | disposition home or self-care (01) ==
LOC: C.ER 17:58
DX: M79.671 Pain in right foot (principal)

== ENCOUNTER 2019-01-02 09:30 | Outpatient (CLI) | payer OTHER | END 2019-01-02 09:31 | disposition home or self-care (01) | LOC: C.RADH 09:30 | DX: M79.671 Pain in right foot (principal) ==

== ENCOUNTER 2019-01-02 11:19 | Outpatient (CLI) | payer OTHER | END 2019-01-02 11:20 | disposition home or self-care (01) | LOC: C.LAB 11:19 | DX: M79.671 Pain in right foot (principal) ==